=== PATIENT | female | born 1950 | race Caucasian/White ===

== ENCOUNTER → 2017-08-31 14:50 | Outpatient (CLI) | payer MEDICARE, OTHER, SELFPAY ==
[2017-08-23 08:47] VITALS: BP 150/87; BMI 27.8
--- NOTE | 2017-08-31 15:16 | CT_ITS ---
STUDY: LOW DOSE CT LUNG CANCER SCREENING REASON FOR EXAM: Female, 67 years old. 80 pack-year history of tobacco use. RADIATION DOSAGE (If Supplied By Facility): CTDIvol = ( 3.02 ) mGy, DLP = ( 94.40 ) mGycm TECHNIQUE: No contrast was administered. Low dose technique was utilized (average mAS-38 and kVp 120). 1.25 mm axial source images with a slice interval of 1.25-mm were reconstructed in lung windows. 2.5 mm axial source images with a slice interval of 2.5-mm were reconstructed in lung windows. 5.0 mm axial source images with a slice interval of 5.0-mm were reconstructed in soft tissue windows. Nodule measured using lung windows on PACS and/or independent workstation with automated measurement of minimum and maximum diameter. Nodule measurement reported as average diameter rounded to the nearest whole number. Growth is defined as an increase ins size of greater than 1.5 mm. COMPARISON: Comparison is made with prior chest radiograph dated May 15, 2017. NODULES: There is a 2.4 cm x 2.2 cm x 2.4 cm spiculated suspicious nodular density in the posterior medial segment of the right lower lobe as seen on axial image #179. There is also evidence of a 2 cm x 1.3 cm irregular linear density in the posterior medial aspect of the left lower lobe as seen on axial image #171. There is also evidence of focal airspace disease in the posterior medial segment of the left lower lobe with a focal bronchiectasis in the left lower lobe as seen on axial image #166. Correlation with PET scan is recommended. Total lung nodules (excluding granulomas): 3 Emphysema: Mild degree of emphysematous changes. Hyperinflation. Aorta: Atherosclerotic plaque formation. Coronary arteries: Coronary artery calcification. Heart: Prior CABG. Pulmonary artery: Unremarkable. Mediastinal nodes: Small benign-appearing mediastinal lymphadenopathy. Other chest and abdominal findings: Degenerative changes of the thoracic spine. CT/Low Dose CT Lung Screening IMPRESSION: Lung-RADS category 4B - Chest CT with or without contrast, PET/CT and/or tissue sampling can be obtained depending on the probability of malignancy and comorbidities. IMPORTANT NOTES FOR USE: ACR Lung-RADS Version 1.0 Assessment Categories Release Date: November 11, 2013 Category: Coded 0-4 bases on nodule(s) with highest degree of suspicion. Negative screen is defined as categories 1 and 2; a positive screen is defined as categories 3 and 4. Category 3 and 4A nodules that are unchanged on interval CT should be coded as category 2, and individuals returned to screening in 12 months. Category 4X: Category 3 or 4 nodules with additional imaging findings that increase the suspicion of lung cancer, such as spiculation, GGN that doubles in size in 1 year, enlarged lymph notes, etc. Category Modifiers: S (significant finding unrelated to lung cancer) and C (prior history of treated lung cancer) may be added to the 0-4 Lung-RADS Electronically Signed: Miles Servin MD at 10:41 EST Tel [phone], Service support ,
== END ==
PROVIDERS: Family Provider Internal Medicine; PCP Internal Medicine; Visit Provider Internal Medicine Critical Care Medicine
DX: Z12.2 Encounter for screening for malignant neoplasm of respiratory organs (principal); J44.9 Chronic obstructive pulmonary disease, unspecified; Z87.891 Personal history of nicotine dependence
CPT/HCPCS: G0297

== ENCOUNTER → 2017-09-06 09:08 | Outpatient (CLI) | payer MEDICARE, OTHER, SELFPAY ==
[2017-09-06 10:38] LABS: Hematocrit 49.8 % (37-47); Hemoglobin 16.3 g/dl (12.0-15.0); Mean Corp Hgb Conc 32.7 g/gl (32-36); Mean Corpuscular Hgb 31.5 pg (27.0-32.0); Mean Corpuscular Volume 96.3 fL (81-99); Mean Platelet Vol. 12.2 fl (6.2-12.0); Platelet Count 265 K/mm3 (150-450); RBC Distribution Width CV 12.8 % (11.6-14.6); RBC Distribution Width SD 44.7 fl (35.1-43.9); Red Blood Count 5.17 M/mm3 (4.2-5.4); White Blood Count 7.6 K/mm3 (4.4-11.0)
[2017-09-06 10:51] LABS: Scan Indicated on CBC? Y/N NO
[2017-09-06 10:57] LABS: International Normalized Ratio 0.9; Prothrombin Time (Protime)PT. 12.2 SECONDS (11.7-14.9)
[2017-09-06 10:59] LABS: Partial Thromboplast Time 28.8 Seconds (24.1-36.2)
== END ==
PROVIDERS: Family Provider Internal Medicine; PCP Internal Medicine; Visit Provider Nurse Practitioner Acute Care
DX: I25.10 Atherosclerotic heart disease of native coronary artery without angina pectoris (principal); R07.9 Chest pain, unspecified; R91.8 Other nonspecific abnormal finding of lung field
CPT/HCPCS: 36415; 85027; 85610; 85730

== ENCOUNTER → 2017-09-13 08:51 | Outpatient (CLI) | payer MEDICARE, OTHER, SELFPAY ==
--- NOTE | 2017-09-13 | ASPIGT_PTH ---
PATIENT: JARETH SALEH LOC: CT U#:[id number] AGE/SX: 74/F ROOM: RE09/13/[address]: SENTHIL Roberts : 1950 BED: DIS: SPEC #: [id number] RECD: 09/13/17 11:46 STATUS: NEERU [place] #: [id number] KAERNA: 09/13/17 00:[address]: Ana Hunter NP DEPT: SURGICAL PATHOLOGY RECD BY: Zaid Loaiza ENTERED: 09/13/17 11:49 SP TYPE: ASP RAD OTHR DR: Dr. Kaylee Loco MD Tissues: Lung, NOS Procedures: FNA Specimen Adequacy Special Stain Group II Surgery Specimen Level IV Imprint (control) Comments: [facility] EGFR and KRAS - QNS - insufficient material. HEADER OPERATION: CT guided right lung biopsy PRE-OP DIAGNOSIS: Mass, right lung TISSUE SUBMITTED: 20 gauge core x3, right posterior lung mass MICROSCOPIC DIAGNOSIS Right lung mass, CT-guided core biopsy: Non-small cell carcinoma, favor adenocarcinoma. IVY:tomasz 09/14/17 COMMENT The specimen is evaluated at the time of right lung core biopsy by Dr. Ramachandran. Immediate Evaluation = Malignant cells present derived from non-small cell carcinoma. Immunohistochemistry ([id number]) supports the above diagnosis. Molecular studies on the tumor will be performed and the results will be reported later, separately. MICROSCOPIC DESCRIPTION Slides are reviewed. GROSS DESCRIPTION Received is one container labeled with the patient's name and designated right lung, CT-guided core biopsy. The specimen consists of multiple irregular fragments of calvillo soft tissue that in aggregate measure 1 x <0.1 x 0.1 cm. The specimen is totally submitted in one cassette. Two touch imprints are also prepared at the time of core biopsy. / IVY:tomasz 09/13/17 TC:0 CPT: 62838, 73030
--- NOTE | 2017-09-13 | IMM_PTH ---
PATIENT: JARETH SALEH LOC: CT U#:[id number] AGE/SX: 74/F ROOM: RE09/13/[address]: SENTHIL Roberts : 1950 BED: DIS: SPEC #: [id number] RECD: 09/14/17 11:11 STATUS: NEERU [place] #: [id number] KARENA: 09/13/17 00:[address]: Ana Hunter NP DEPT: IMMUNOHISTOCHEMISTRY RECD BY: Cheryl Chang ENTERED: 09/14/17 11:13 SP TYPE: IMMUNO OTHR DR: Dr. Kaylee Loco MD Tissues: Lung, NOS Procedures: CK20 (add) CK5-6 (add) CK8 (add) TTF1 (add) P40 (add) CK7 (initial) PHYSICIAN & INSTITUTION [place] [id number] SPECIMEN INFORMATION: Tissue Source: CT-guided right lung biopsy Clinical Info: Mass, right lung Specimen Number: [id number] CPT code: 94932, 66736 x5 METHODOLOGY: Deparaffinized sections of prefer/formalin-fixed tissue or PAP/DQ stained slides are incubated with monoclonal/polyclonal antibodies/oligonucleotide probes. Localization is made via biotin free immunoperoxidase method. Appropriate controls are performed and reacted as expected. Results on target cell population are indicated in the following table: RESULTS: ANTIBODY / CLONE RESULT CK7 (OV-TL12/30) positive CK8 (77thnoK26) positive CK20 (KS20.8) negative TTF-1 (8G7G3/1) positive CK5-6 (D5 & 1684) negative P40 (BC28) negative These tests were developed and their performance characteristics determined by [facility]. They may not have been cleared or approved by the U.S. Food and Drug Administration. The FDA has determined that such clearance or approval is not necessary. INTERPRETATION: Right lung, CT-guided biopsy: Non-small cell carcinoma, favor adenocarcinoma. SJ:tomasz 09/15/17
[2017-09-13 09:11] VITALS: BP 137/70; PULSE 75; RESP 14; TEMP 36.7; O2SAT 96; BMI 28.7
--- NOTE | 2017-09-13 10:00 | CT_ITS ---
PROCEDURE: CT GUIDED CORE NEEDLE BIOPSY OF A right lower lobe LUNG LESION INDICATION: Female, 67 years old. Right lower lobe nodule. PHYSICIAN: Dr. Servin CONSENT: Written informed consent was obtained having explained the risks, benefits and alternatives in detail with the patient who accepted the risks and agreed to proceed. Laboratory review and clinical assessment was performed. CONSCIOUS SEDATION PROTOCOL: The Drugs used were: 2 mg Versed, IV., and 50 mcg Fentanyl, IV. The sedation time was: 15 minutes. The contrast sedation protocol was started at 10:00 AM and terminated at 10:15 AM. The conscious sedation protocol was independently monitored by our department nurse. RADIATION DOSAGE (If Supplied By Facility): CTDIvol = ( 16.6 ) mGy, DLP = ( 24.34 ) mGycm Individualized dose optimization techniques were used for this CT. TECHNIQUE: The patient was placed in the prone position. A noncontrast CT was performed to localize the lesion in the . The skin surface was prepped and draped in a sterile fashion. 1% lidocaine was used for local anesthesia. Using CT guidance, a 20-gauge coaxial biopsy device was advanced to the periphery of the lesion. A total of 3 core specimens were obtained. The specimens were placed in a formalin solution. A post procedure CT demonstrated no adverse sequelae or pneumothorax. The patient tolerated the procedure well without adverse event. A negative biopsy does not exclude malignancy. Further imaging or clinical followup based on patient condition and degree of clinical suspicion for malignancy. Suggest rebiopsy, if biopsy results do not match with clinical scenario. CT/Biopsy/Inj or Needle Placement IMPRESSION: 1. CT directed core needle biopsy of the right lower lobe nodule using CT image guidance with image documentation as described. Pathology results are pending. 2. Conscious Sedation protocol utilized with independent monitoring. Electronically Signed: Miles Sevrin MD at 11:24 EST Tel [phone], Service support ,
--- NOTE | 2017-09-13 10:12 | RAD_ITS ---
STUDY: X-RAY CHEST REASON FOR EXAM: Female, 67 years old. Immediate post right lung biopsy radiograph. TECHNIQUE: Single frontal inspiratory and expiratory views of the chest. COMPARISON: Comparison is made with prior study dated May 15, 2017. FINDINGS: There is no evidence of pneumothorax on the immediate post right lung biopsy radiograph. RAD/Chest Insp/Exp 2 View IMPRESSION: No pneumothorax seen on the immediate post right lung biopsy radiograph. Electronically Signed: Miles Servin MD at 8:22 EST Tel [phone], Service support ,
--- NOTE | 2017-09-13 12:15 | RAD_ITS ---
STUDY: X-RAY CHEST REASON FOR EXAM: Female, 67 years old. Post lung biopsy evaluation. TECHNIQUE: 1 view COMPARISON: Prior chest radiograph of September 13, 2017 at 10:[address] exam of September 13, 2017. Prior chest radiograph from May 15, 2018 FINDINGS: Negative for a pneumothorax. Stable density at the medial right lung base. Stable linear opacities of the left lung. Normal size heart. Status post prior midline sternotomy. Normal visualized pulmonary arteries. Normal visualized aortic arch and descending thoracic aorta. Normal visualized thoracic spine. Normal visualized ribs, clavicles, and shoulders. There is no demonstrated abnormality of the visualized soft tissue structures of the upper abdomen. RAD/Chest Insp/Exp 2 View IMPRESSION: Post lung biopsy with no visible pneumothorax, major consolidation or focal atelectasis. Stable lung opacities as described above. Electronically Signed: Tina Bay MD at 17:54 EST , Service support ,
[2017-09-13 12:30] VITALS: BP 155/72; PULSE 67; RESP 14; TEMP 36.7; O2SAT 97
--- NOTE | 2017-09-13 13:15 | NURSING ---
1240 D/C AMBULATED OUT WITH .
== END ==
PROVIDERS: Family Provider Internal Medicine; PCP Internal Medicine; Visit Provider Nurse Practitioner Acute Care
DX: C34.31 Malignant neoplasm of lower lobe, right bronchus or lung (principal); F17.200 Nicotine dependence, unspecified, uncomplicated; J44.9 Chronic obstructive pulmonary disease, unspecified; I25.10 Atherosclerotic heart disease of native coronary artery without angina pectoris; I25.2 Old myocardial infarction; I10 Essential (primary) hypertension; E66.9 Obesity, unspecified; Z68.28 Body mass index [BMI] 28.0-28.9, adult; E11.9 Type 2 diabetes mellitus without complications; Z79.84 Long term (current) use of oral hypoglycemic drugs; Z79.899 Other long term (current) drug therapy; E78.5 Hyperlipidemia, unspecified; Z95.1 Presence of aortocoronary bypass graft
CPT/HCPCS: 32405; 71046; 77012; 88172; 88305; 88313; 88341; 88342; 99156; J7040; A4216

== ENCOUNTER → 2017-09-23 08:27 | Outpatient (CLI) | payer MEDICARE, OTHER, SELFPAY ==
--- NOTE | 2017-09-23 08:52 | MRI_ITS ---
STUDY: MRI BRAIN WITH AND WITHOUT CONTRAST REASON FOR EXAM: Female, 67 years old. Staging of lung cancer TECHNIQUE: Standardized multiplanar fat and water weighted pulse sequences were obtained. 7 ml of Gadavist contrast material was administered intravenously for the contrast portion of the examination. COMPARISON: None. FINDINGS: No evidence for shift of midline structures, mass effect or compression of ventricles noted. No acute intra or extra-axial hemorrhage is seen. No abnormal intracranial fluid collections identified. The basal cisterns are patent. Ventricular system appears unremarkable. A few scattered foci of T2/FLAIR hyperintensity in the periventricular and subcortical white matter noted which are nonspecific in imaging appearance however likely relate with mild chronic small vessel disease. Skull base vascular flow voids are patent. Normal marrow signal intensity of the calvarium. Visualized orbital contents are within normal limits. No evidence for intracranial enhancing mass seen. The paranasal sinuses are essentially clear. Mastoid air cells appear clear MRI/Brain W/WO Contrast IMPRESSION: No evidence for intracranial enhancing mass. No evidence for intracranial metastases. No evidence for acute or subacute ischemic insult. No evidence for acute intracranial hemorrhage. Mild chronic small vessel disease Electronically Signed: Ben Petty, at 12:04 EST Tel , Service support ,
[2017-09-23 10:01] LABS: CREATININE FINGERSTICK < 0.6 mg/dL (0.55-1.02); EGFR FINGERSTICK > 60.0000 mL/min (>60)
== END ==
PROVIDERS: Family Provider Internal Medicine; PCP Internal Medicine; Visit Provider Nurse Practitioner Acute Care
DX: C34.90 Malignant neoplasm of unspecified part of unspecified bronchus or lung (principal)
CPT/HCPCS: 70553; A9585

== ENCOUNTER → 2017-09-25 08:24 | Outpatient (CLI) | payer MEDICARE, OTHER, SELFPAY ==
--- NOTE | 2017-09-25 08:00 | PET_ITS ---
EXAMINATION: FDG PET CT INDICATIONS: A 67-year-old female with history of carcinoma of the lung presenting for initial staging examination. COMPARISON EXAMINATION: CT of the chest report dated 08/31/17. INDEX LESION SIZE SUV INTERPRETATION Right lower posterior hemithorax pulmonary parenchyma, right lower lobe 27.9 mm (frame 164) 3.6 Fulfills quantitative criteria for viable neoplasm Left lower posteromedial hemithorax, left lower lobe 19.0 mm (frame 159) 1.2 Quantitative criteria for viable neoplasm are not fulfilled TECHNIQUE: Following the intravenous administration of 14.02 mCi of F-18 deoxyglucose via the right wrist, multiplanar image acquisitions of the neck, chest, abdomen and pelvis to level of mid thigh, obtained at one hour post radiopharmaceutical administration contemporaneously interpreted with the current CT of the neck, chest, abdomen and pelvis to level of mid thigh, dated 09/15/[address] of the chest report dated 08/31/17 reveal: SERUM GLUCOSE LEVEL: 180 mg/dl. HEIGHT: 61 inches. WEIGHT: 152 lbs. FINDINGS: 1. Focal increased glucose metabolism is defined in the right lower posterior hemithorax pulmonary parenchyma, right lower lobe generating a calculated maximum standard uptake value of 3.6. The maximal axial diameter of the corresponding parenchymal density on review of CT of the thorax dated 09/25/17 is 27.9 mm (transverse). 2. Normal physiologic distribution of the radiopharmaceutical is apparent in the hepatic (2.9) and splenic parenchyma, both renal units, bladder and visualized intestinal tract. There is uniform distribution of the radiopharmaceutical concentration compared on the cerebellar hemispheres and cerebral cortex. Diffuse intestinal tract activity is noted throughout all four quadrants of the abdominal-pelvic retroperitoneum, mesentery consistent with normal physiologic distribution of the radiopharmaceutical. Pertinent CT findings are as follows. CHEST: Emphysematous change is noted in the bilateral upper lung zones. A cavitated parenchymal density noted in the left lower posteromedial lung field demonstrates minimal enhanced glucose metabolism generating a calculated maximum standard uptake value of 1.2. Quantitative criteria for viable pulmonary parenchymal neoplasm are not fulfilled. The maximal axial diameter of the corresponding parenchymal density on review of CT of the thorax dated 09/25/17 is 19.0 mm (transverse). There is evidence of prior median sternotomy. Coronary arterial calcification is observed. Atherosclerotic calcification is defined in the thoracic aorta without evidence of dilatation, aneurysm formation. Bilateral subcentimeter axillary soft tissue densities are ametabolic. ABDOMEN AND PELVIS: There is fatty metamorphosis involving the hepatic parenchyma. The gallbladder is not clearly identified. Atherosclerotic calcification is defined in the abdominal aorta without evidence of dilatation, aneurysm formation. Pelvic arterial calcification is observed. Bilateral inguinal soft tissue densities are non-glucose avid. The uterus appears surgically absent. Colonic diverticulosis is defined. SKELETAL: Degenerative changes defined in the cervical, thoracic and lumbar spine demonstrate no evidence for glucose hypermetabolism. PET/PET/CT Tumor Base -Thigh Init IMPRESSION: 1. ABNORMAL EXAMINATION INDICATIVE OF MALIGNANT VIABLE NEOPLASM. 2. Increased glucose concentration defined in the right lower posterior hemithorax pulmonary parenchyma, right lower lobe fulfills quantitative criteria for viable neoplasm. (Michelle et al, Annals of Internal Medicine, 138:724, 2003). 3. Mild increased glucose concentration observed in the left lower posteromedial lung zone, left lower lobe does not fulfill quantitative criteria for viable neoplasm. 4. No other quantitatively significant hypermetabolic abnormalities are noted. There is no definitive scintigraphic evidence of distant metastatic disease. Electronic Signature Adi Kaplan D.O. Electronically Signed: Adi Kaplan DO at 23:13 EDT Tel , Service support ,
== END ==
PROVIDERS: Family Provider Internal Medicine; PCP Internal Medicine; Visit Provider Nurse Practitioner Acute Care
DX: C34.31 Malignant neoplasm of lower lobe, right bronchus or lung (principal)
CPT/HCPCS: 78815; A9552; A4216

== ENCOUNTER 2018-03-11 08:25 | Emergency (ER) | payer MEDICARE, OTHER, SELFPAY ==
[2017-10-05 11:04] VITALS: BMI 28.2
[2018-03-11 08:26] VITALS: BP 165/81; PULSE 92; RESP 20; TEMP 35.8; O2SAT 98; BMI 28.1
[2018-03-11] MEDS: Acetaminophen 500 MG Tablet 1000 MG PO (08:46)
--- NOTE | 2018-03-11 08:55 | ED.DCSUM_ITS ---
- ER Visit Summary Date of Service: 03/11/18 Chief Complaint: Back pain History of Present Illness: The patient is a 67 F with mid to lower back pain over the past 4 days. Patient states that she was mey the day before the onset of pain but does not remember specific injury. Past history significant for cancer in both right lower and left lower lobes. She was treated with a single dose of radiation at [facility] this past November. Follow-up CT scan in December showed partial response. She is scheduled to go back for repeat imaging in 3 months. Past history is also significant for coronary disease, SC, COPD, diabetes, hypertension, high cholesterol. Physical Examination: Blood pressure is 165/81, temperature 96.4, heart rate 92 , respiratory rate 20, pulse ox 98% on room air. Patient is standing at bedside. She appears uncomfortable but is in no acute distress. Head neck examination is unremarkable. Heart is regular rate and rhythm. Lung sounds are clear. Abdomen is soft nontender. Back examination reveals an area of ecchymosis in the midline near the junction of the thoracic and lumbar spine. That area is tender to palpation. There is no crepitus. Patient does state that she had a rash to that area following her radiation treatment in November. Neuro exam reveals no deficits. Test Results: CT flank shows no acute abnormality. There are no masses or lymphadenopathy appreciated. CT the chest: Where prior right lower lobe mass was present there is now consolidation within the right lower lobe. There is a stable focal masslike consolidation in the left lower lobe with small air bronchogram or cavitation. This may represent worsening neoplasm versus superimposed infection. Emergency Department Course and Treatment: Patient requested only Tylenol here as she was driving. Test results were discussed with her in detail. Patient has had no URI, cough, fever symptoms. She states that the left lower lobe mass was biopsied and was cancerous. I think patient likely has musculoskeletal back pain at the area where her prior treatment was. She will be treated with Tylenol, oxycodone, and Valium for muscle spasm. Patient was advised to contact her oncologist at [facility] on Monday for close follow -up. She voices understanding and agreement. Treatment Plan: [] Disposition: Discharge Impression: 1. Back pain, musculoskeletal 2. Lung cancer This note was generated with Access Scientification software. It may contain incorrect words, spelling, and punctuation that were not noted in review of the chart prior to signing ED Disposition - Plan for ED Patient: Chief Complaint: Back Referrals: Kaylee Loco MD [Primary Care Provider] -
--- NOTE | 2018-03-11 10:35 | ED.DEP ---
ED Disposition - Plan for ED Patient: Disposition: Home or Assisted Living Chief Complaint: Back Instructions: ED Neck Back Pain General Prescriptions: Oxycodone [Oxyir] 5 mg PO Q6H PRN PRN 4 Days #14 tablet PRN Reason: Pain Diazepam [Valium] 5 mg PO Q8 PRN #10 tablet PRN Reason: Muscle Spasm Referrals: Kaylee Loco MD [Primary Care Provider] - Additional Instructions: Follow-up with your oncologist on Monday as discussed.
[2018-03-11 10:41] VITALS: PULSE 87; RESP 16; O2SAT 94
== END 2018-03-11 10:42 | disposition home or self-care (01) ==
PROVIDERS: Emergency Provider Emergency Medicine; Family Provider Internal Medicine; PCP Internal Medicine
DX: M54.5 Low back pain (principal); M54.6 Pain in thoracic spine; C34.32 Malignant neoplasm of lower lobe, left bronchus or lung; C34.31 Malignant neoplasm of lower lobe, right bronchus or lung; I25.10 Atherosclerotic heart disease of native coronary artery without angina pectoris; I25.2 Old myocardial infarction; I10 Essential (primary) hypertension; J44.9 Chronic obstructive pulmonary disease, unspecified; E11.9 Type 2 diabetes mellitus without complications; E78.00 Pure hypercholesterolemia, unspecified; Z79.84 Long term (current) use of oral hypoglycemic drugs; Z79.899 Other long term (current) drug therapy; Z72.0 Tobacco use
CPT/HCPCS: 71250; 74176; 99283

== ENCOUNTER → 2020-04-23 09:10 | Outpatient (CLI) | payer MEDICARE, OTHER, SELFPAY ==
[2017-10-05 11:04] VITALS: BMI 28.2
[2020-02-05 09:30] VITALS: BMI 27.1
== END ==
LOC: MTDU 11-03 00:19
PROVIDERS: PCP Internal Medicine; Referring Provider Physician Assistant; Visit Provider Physician Assistant
DX: Z20.828 Contact with and (suspected) exposure to other viral communicable diseases (principal)
CPT/HCPCS: 87635; C9803; U0003

== ENCOUNTER → 2021-04-29 15:27 | Outpatient (CLI) | payer MEDICARE, OTHER, SELFPAY ==
[2017-10-05 11:04] VITALS: BMI 28.2
[2021-04-29 17:07] LABS: Anion Gap 4 (5-15); BUN 16 mg/dL (7-18); BUN/Creat Ratio 13.7 RATIO (10-20); Chloride 107 mmol/L (98-107); Creatinine, Serum 1.17 mg/dL (0.55-1.02); EST Glomerular Filtration Rate 49 mL/min (>60); Est Glom Filt Rate - Afr Amer 59 mL/min (>60); Glucose 122 mg/dL (74-106); Potassium 4.3 mmol/L (3.5-5.1); Sodium Level 137 mmol/L (136-145)
== END ==
PROVIDERS: PCP Internal Medicine; Visit Provider Nurse Practitioner Gerontology
DX: I10 Essential (primary) hypertension (principal)
CPT/HCPCS: 36415; 80048

== ENCOUNTER 2021-07-21 08:06 | Outpatient (CLI) | payer MEDICARE, OTHER, SELFPAY ==
[2017-10-05 11:04] VITALS: BMI 28.2
--- NOTE | 2021-07-21 08:08 | ECHOCS_ITS ---
Reason For Study: s/p TN, EF 25% Procedure This was a 2D Doppler, Color Flow transthoracic echocardiogram. Contrast injection was performed. Exam performed in department. Left Ventricle Mildly dilated left ventricle. Moderate segmental systolic dysfunction (see wall motion). The estimated ejection fraction is 30 %. Diastolic function is indeterminate. Infero-Basal: Akinetic. Basal inferoseptal: Dyskinetic. Mid-Lateral : Hypokinetic. Mid-Posterior: Hypokinetic. Mid-Inferior: Hypokinetic. Mid-inferoseptal : Hypokinetic. Goodwin : Hypokinetic. Right Ventricle Normal RV size. Normal systolic function. Atria Normal left atrium. Normal right atrium. No doppler evidence for ASD. Mitral Valve There is mild mitral annular calcification. Extension of the mitral annular calcification on the base of the posterior mitral valve leaflet. Mild (1+) mitral valve insufficiency. Tricuspid Valve Normal tricuspid valve. Mild tricuspid valve insufficiency. Right ventricular systolic pressure estimated to be 31 mmHg. Aortic Valve Trisinus/trileaflet aortic valve. Normal aortic valve. Trivial aortic valve insufficiency. Pulmonic Valve The pulmonic valve is not well visualized. Great Vessels Normal sized aortic root. Pericardium/Pleural No pericardial effusion. Medication Diluted definity 2ml given slow IV push to enhance endocardial definition. MMode/2D Measurements & Calculations LVIDd: 5.4 cm IVSd: 0.75 cm Ao root diam: 3.1 cm LVIDs: 4.9 cm LVPWd: 0.93 cm RVDd: 2.1 cm FS: 9.9 % LAV(MOD-bp): 19.8 ml LVAd ap4: 29.2 cm2 LVAd ap2: 32.4 cm2 LAV(MOD-bp) Indexed: 13.1 ml/m2 LVLd ap4: 6.8 cm LVLd ap2: 7.3 cm LAV(MOD-sp2): 23.6 ml EDV(MOD-sp4): 103.4 ml EDV(MOD-sp2): 120.9 ml LAV(MOD-sp4): 15.1 ml EDV(sp4-el): 107.4 ml EDV(sp2-el): 121.8 ml LVAs ap4: 22.3 cm2 LVAs ap2: 24.3 cm2 LVLs ap4: 5.9 cm LVLs ap2: 6.3 cm ESV(MOD-sp4): 72.0 ml ESV(MOD-sp2): 81.5 ml ESV(sp4-el): 71.6 ml ESV(sp2-el): 79.2 ml EF(MOD-sp4): 30.3 % EF(MOD-sp2): 32.6 % EF(sp4-el): 33.4 % SV(MOD-sp4): 31.4 ml SV(MOD-sp2): 39.4 ml SV(sp4-el): 35.8 ml LA A4 area: 8.9 cm2 LA dimension(2D): 3.6 cm RA A4 area: 8.0 cm2 Doppler Measurements & Calculations MV E max humberto: 45.8 cm/sec Lat Peak E' Humberto: 5.5 cm/sec Med Peak E' Humberto: 3.2 cm/sec MV A max humberto: 93.3 cm/sec E/E' lat: 8.4 E/E' med: 14.5 MV E/A: 0.49 Ao V2 max: 132.1 cm/sec LV V1 max: 104.1 cm/sec PA V2 max: 85.4 cm/sec Ao max P.0 mmHg LV V1 max P.3 mmHg Ao V2 mean: 93.1 cm/sec Ao mean P.8 mmHg Ao V2 VTI: 25.2 cm TR max humberto: 265.3 cm/sec TR max P.2 mmHg ECHO/Echo Complete W/ Contrast Interpretation Summary Contrast injection was performed. Moderate segmental systolic dysfunction (see wall motion). The estimated ejection fraction is 30 %. There is mild mitral annular calcification. Extension of the mitral annular calcification on the base of the posterior mitr al valve leaflet. Mild (1+) mitral valve insufficiency. Mild tricuspid valve insufficiency. Trivial aortic valve insufficiency. Right ventricular systolic pressure estimated to be 31 mmHg. Diastolic function is indeterminate. Ordering Physician: Krystyna Chavez Referring Physician: Kaylee Loco Performed By: Joanna Pickard RDCS, RVT
== END 2021-07-21 23:59 | disposition short-term general hospital (02) ==
LOC: CVS 08:07
PROVIDERS: PCP Internal Medicine; Referring Provider Nurse Practitioner Gerontology; Visit Provider Nurse Practitioner Gerontology
DX: R06.02 Shortness of breath (principal)
CPT/HCPCS: 93306; Q9957; A4216; C8929

== ENCOUNTER 2021-08-26 10:06 | Outpatient (CLI) | payer MEDICARE, OTHER, SELFPAY ==
[2017-10-05 11:04] VITALS: BMI 28.2
[2021-08-26 10:52] LABS: Anion Gap 5 (5-15); BUN 25 mg/dL (7-18); BUN/Creat Ratio 25.4 RATIO (10-20); Calcium,Total 9.5 mg/dL (8.5-10.1); Chloride 107 mmol/L (98-107); Creatinine, Serum 0.99 mg/dL (0.55-1.02); EST Glomerular Filtration Rate 59 mL/min (>60); Est Glom Filt Rate - Afr Amer 72 mL/min (>60); Glucose 124 mg/dL (74-106); Potassium 4.8 mmol/L (3.5-5.1); Sodium Level 136 mmol/L (136-145)
== END 2021-08-26 23:59 | disposition home or self-care (01) ==
LOC: LAB 10:09
PROVIDERS: PCP Internal Medicine; Referring Provider Internal Medicine Cardiovascular Disease; Visit Provider Internal Medicine Cardiovascular Disease
DX: I50.20 Unspecified systolic (congestive) heart failure (principal); E11.9 Type 2 diabetes mellitus without complications
CPT/HCPCS: 36415; 80048

== ENCOUNTER 2021-10-21 07:42 | Outpatient (CLI) | payer MEDICARE, OTHER, SELFPAY ==
[2017-10-05 11:04] VITALS: BMI 28.2
--- NOTE | 2021-10-21 07:45 | ECHOL_ITS ---
Reason For Study: REASSESS EF Procedure This was a limited 2D transthoracic echocardiogram. Limited views were obtained. Exam performed in department. Left Ventricle Normal LV size. Moderate segmental systolic dysfunction (see wall motion). The estimated ejection fraction is 35 %. Unable to assess diastolic dysfunction. Infero-Basal: Akinetic. Basal inferoseptal: Dyskinetic. Mid-Posterior: Hypokinetic. Mid-Inferior: Hypokinetic. Mid-inferoseptal : Hypokinetic. Mid-anteroseptal : Hypokinetic. [place] : Hypokinetic. Right Ventricle Normal RV size. Normal systolic function. Atria Normal left atrium. Normal right atrium. Mitral Valve There is mild mitral annular calcification. Extension of the mitral annular calcification on the base of the posterior mitral valve leaflet. Tricuspid Valve Normal tricuspid valve. Aortic Valve Trisinus/trileaflet aortic valve. Normal aortic valve. Pulmonic Valve The pulmonic valve is not well visualized. Great Vessels Normal sized aortic root. Pericardium/Pleural No pericardial effusion. MMode/2D Measurements & Calculations LVIDd: 5.3 cm IVSd: 0.70 cm Ao root diam: 3.0 cm LVIDs: 3.9 cm LVPWd: 0.87 cm FS: 25.4 % LVAd ap4: 23.4 cm2 LVAd ap2: 21.3 cm2 SV(MOD-sp4): 28.8 ml LVLd ap4: 6.4 cm LVLd ap2: 6.4 cm EDV(MOD-sp4): 73.0 ml EDV(MOD-sp2): 63.3 ml EDV(sp4-el): 72.7 ml EDV(sp2-el): 60.1 ml LVAs ap4: 16.5 cm2 LVAs ap2: 16.6 cm2 LVLs ap4: 5.4 cm LVLs ap2: 5.9 cm ESV(MOD-sp4): 44.2 ml ESV(MOD-sp2): 42.0 ml ESV(sp4-el): 42.4 ml ESV(sp2-el): 39.5 ml EF(MOD-sp4): 39.4 % EF(MOD-sp2): 33.6 % EF(sp4-el): 41.6 % SV(MOD-sp2): 21.3 ml SV(sp4-el): 30.3 ml LA dimension(2D): 2.9 cm ECHO/Echo, Limited Study Interpretation Summary Limited views were obtained. Moderate segmental systolic dysfunction (see wall motion). The estimated ejection fraction is 35 %. There is mild mitral annular calcification. Extension of the mitral annular calcification on the base of the posterior mitr al valve leaflet. Unable to assess diastolic dysfunction. Ordering Physician: Krystyna Chavez Referring Physician: Kaylee Loco M.D. Performed By: Noni Spears RCS
== END 2021-10-21 23:59 | disposition home or self-care (01) ==
LOC: CVS 07:44
PROVIDERS: PCP Internal Medicine; Referring Provider Nurse Practitioner Gerontology; Visit Provider Nurse Practitioner Gerontology
DX: I50.20 Unspecified systolic (congestive) heart failure (principal); J44.9 Chronic obstructive pulmonary disease, unspecified; I11.0 Hypertensive heart disease with heart failure; E11.9 Type 2 diabetes mellitus without complications; Z95.1 Presence of aortocoronary bypass graft; Z87.891 Personal history of nicotine dependence
CPT/HCPCS: 93308

== ENCOUNTER → 2022-02-02 | Outpatient (CLI) | payer MEDICARE, OTHER, SELFPAY ==
[2017-10-05 11:04] VITALS: BMI 28.2
--- NOTE | 2022-02-02 13:41 | ECHOLC_ITS ---
Reason For Study: Reassess LV Function Procedure This was a limited 2D transthoracic echocardiogram. The study was technically difficult. Contrast injection was performed. Limited views were obtained. Exam performed in department. Left Ventricle Normal LV size. Mild segmental systolic dysfunction (see wall motion). The estimated ejection fraction is 45 %. The global longitudinal strain = -15% (abnormal). Unable to assess diastolic dysfunction. Infero-Basal: Akinetic. Basal inferoseptal: Dyskinetic. Mid-Inferior: Hypokinetic. Inferior [place] : Hypokinetic. Right Ventricle Normal RV size. Normal systolic function. Atria Normal left atrium. Normal right atrium. No doppler evidence for ASD. Mitral Valve There is mild to moderate mitral annular calcification. Extension of the mitral annular calcification on the base of the posterior mitral valve leaflet. Tricuspid Valve Normal tricuspid valve. Trivial tricuspid valve insufficiency. Right ventricular systolic pressure estimated to be 31 mmHg. Aortic Valve The aortic valve is not well visualized. Pulmonic Valve The pulmonic valve is not well visualized. Great Vessels The aortic root is not well visualized. Pericardium/Pleural No pericardial effusion. Medication Diluted definity 2.5ml given slow IV push to enhance endocardial definition. MMode/2D Measurements & Calculations LVIDd: 4.2 cm IVSd: 0.91 cm LVIDs: 3.4 cm LVPWd: 0.99 cm LVAd ap4: 23.8 cm2 FS: 18.9 % LVLd ap4: 6.5 cm EDV(MOD-sp4): 72.4 ml EDV(sp4-el): 74.2 ml LVAs ap4: 16.6 cm2 LVLs ap4: 5.6 cm ESV(MOD-sp4): 41.9 ml ESV(sp4-el): 41.7 ml EF(MOD-sp4): 42.1 % EF(sp4-el): 43.8 % LVAd ap2: 24.9 cm2 SV(MOD-sp4): 30.5 ml SV(MOD-sp2): 36.2 ml LVLd ap2: 6.3 cm EDV(MOD-sp2): 85.1 ml EDV(sp2-el): 83.7 ml LVAs ap2: 17.4 cm2 LVLs ap2: 5.4 cm ESV(MOD-sp2): 48.9 ml ESV(sp2-el): 47.3 ml EF(MOD-sp2): 42.6 % SV(sp4-el): 32.5 ml Doppler Measurements & Calculations TR max candace: 263.5 cm/sec TR max P.8 mmHg ECHO/Echo Limited w/Contrast Interpretation Summary The study was technically difficult. Contrast injection was performed. Limited views were obtained. Mild segmental systolic dysfunction (see wall motion). The estimated ejection fraction is 45 %. The global longitudinal strain = -15% (abnormal). There is mild to moderate mitral annular calcification. Extension of the mitral annular calcification on the base of the posterior mitr al valve leaflet. Trivial tricuspid valve insufficiency. Right ventricular systolic pressure estimated to be 31 mmHg. Unable to assess diastolic dysfunction. Ordering Physician: Kimberley Galindo Referring Physician: Kaylee Loco Performed By: Joanna Pickard, ADRIANCS, RVT
== END | disposition home or self-care (01) ==
LOC: CVS 13:40
PROVIDERS: PCP Internal Medicine; Referring Provider Physician Assistant Medical; Visit Provider Physician Assistant Medical
DX: R06.02 Shortness of breath (principal)
CPT/HCPCS: 93308; Q9957; A4216; C8924

== ENCOUNTER 2022-02-09 08:29 | Outpatient (RCR) | payer MEDICARE, OTHER, SELFPAY ==
[2017-10-05 11:04] VITALS: BMI 28.2
[2022-02-09 09:53] VITALS: BP 132/71; PULSE 77; TEMP 35.7
--- NOTE | 2022-02-09 11:04 | HP.PCM_ITS ---
History of Present Illness Date of Service: 02/09/22 Chief Complaint: Follow-up on open wound right adjacent to spine mid back. History of Wound: 71-year-old white female that has many comorbidities and problems she has liver cancer and lung cancer surgery she is diabetic controlled with diet she has history severe COPD congestive heart failure and many other problems. Patient had a biopsy of a lump on her back removed in around June of this last year by Dr. Werner and it never healed. [facility] Medical History (Reviewed 02/09/22 @ 11:07 by Miriam Kim ADMINISTRATIVE RECEPTIONIST, ADMINISTRATIVE RECEPTIONIST-C) Atherosclerosis of coronary artery bypass graft without angina pectoris Chest pain, unspecified COPD (chronic obstructive pulmonary disease) Diabetes mellitus Essential hypertension History of left heart catheterization (LHC) (~04/21/21) Hyperlipemia Kidney stone Liver cancer Long-term use of high-risk medication Lung cancer Lung mass Old myocardial infarction Primary cancer of right lower lobe of lung SOB (shortness of breath) Stage 3 severe COPD by GOLD classification Tobacco abuse Ventricular fibrillation Home Medications omeprazole 40 mg capsule,delayed release 40 mg PO DAILY 08/10/15 [History Last Taken Unknown] rosuvastatin 40 mg tablet 40 mg PO DAILY 08/10/15 [History Last Taken Unknown] budesonide-formoterol HFA 160 mcg-4.5 mcg/actuation aerosol inhaler (Symbicort) 2 inh inhalation Q12H 06/26/17 [History Last Taken Unknown] metformin 500 mg tablet 500 mg PO BID 01/25/19 [History Last Taken Unknown] acetaminophen 500 mg tablet (Tylenol Extra Strength) 500 mg PO Q8H PRN 10/14/20 [History Last Taken Unknown] albuterol sulfate 90 mcg/actuation aerosol inhaler (ProAir HFA) 2 puff inhalation Q6H PRN 10/14/20 [History Last Taken Unknown] cholecalciferol (vitamin D3) 125 mcg (5,000 unit) capsule 5,000 unit PO DAILY 0 10/14/20 [History Last Taken Unknown] folic acid 1 mg tablet 1 mg PO DAILY 10/14/20 [History Last Taken Unknown] apixaban 5 mg tablet 5 mg PO BID 04/14/21 [History Last Taken Unknown] fluticasone propionate 50 mcg/actuation nasal spray,suspension (Allergy Relief (fluticasone)) 2 spray intranasal DAILY PRN 04/29/21 [History Last Taken Unknown] gabapentin 300 mg capsule 300 mg PO QHS PRN Pain, Mild 04/29/21 [History Last Taken Unknown] nitroglycerin 0.4 mg sublingual tablet 0.4 mg sublingual Q5-15M PRN chest pain #25 tabs 04/29/21 [Rx Last Taken Unknown] clopidogrel 75 mg tablet (Plavix) 75 mg PO DAILY #90 tabs 07/12/21 [Rx Last Taken Unknown] metoprolol succinate 25 mg tablet,extended release 24 hr 25 mg PO DAILY #90 tabs 10/08/21 [Rx Last Taken Unknown] magnesium oxide 400 mg (241.3 mg magnesium) tablet 400 mg PO DAILY 10/26/21 [History Last Taken Unknown] potassium chloride 20 mEq tablet,extended release 20 meq PO DAILY 10/26/21 [History Last Taken Unknown] spironolactone 25 mg tablet 25 mg PO Q OTHER DAY #45 tabs 10/26/21 [Rx Last Taken Unknown] sacubitril 49 mg-valsartan 51 mg tablet (Entresto) 1 tab PO BID #180 tabs 11/22/21 [Rx Last Taken Unknown] Allergy/AdvReac Type Severity Reaction Status Date / Time adhesive tape Allergy Severe welts, Verified 10/26/21 14:02 rash bee venom protein (honey bee) Allergy Anaphylaxis Verified 10/26/21 14:02 codeine Allergy Itching Verified 10/26/21 14:02 Family History Brother Myocardial infarction Diabetes CAD (coronary artery disease) Hx of CABG Sister Diabetes CAD (coronary artery disease) Brother CAD (coronary artery disease) Hx of CABG Diabetes Brother CAD (coronary artery disease) Hx of CABG Surgical History femoral artery repair History of cholecystectomy History of hysterectomy Presence of aortocoronary bypass graft (~10/2003) Social History Smoking Status: Current every day smoker Electronic Cigarette Use: not used second hand exposure: Yes alcohol intake: current alcohol intake frequency: a few times a week Alcohol type: wine details: occasional substance use type: does not use caffeine: Yes Type: carbonated beverages Number of servings: 3 ROS Constitutional Constitutional: Reports systems reviewed and no addt'l complaints, except as documented Eyes Eyes: Reports systems reviewed and no addt'l complaints, except as documented ENT HEENT: Reports systems reviewed and no addt'l complaints, except as documented Cardiovascular Cardiovascular: Reports systems reviewed and no addt'l complaints, except as doc umented Respiratory/Chest Respiratory/Chest: Reports systems reviewed and no addt'l complaints, except as documented Gastrointestinal Gastrointestinal: Reports systems reviewed and no addt'l complaints, except as documented Genitourinary Genitourinary: Reports systems reviewed and no addt'l complaints, except as documented Musculoskeletal Musculoskeletal: Reports systems reviewed and no addt'l complaints, except as documented Integumentary Integumentary: Reports wounds and other Details: Nonhealing surgical biopsy since June 2021. Neurologic Neurologic: Reports systems reviewed and no addt'l complaints, except as documented Psychiatric Psychiatric: Reports systems reviewed and no addt'l complaints, except as documented Endocrine Endocrinology: Reports systems reviewed and no addt'l complaints, except as documented Hematologic/Lymphatic Hematologic/Lymphatic: Reports systems reviewed and no addt'l complaints, except as documented Allergic/Immunologic Allergic/Immunologic: Reports systems reviewed and no addt'l complaints, except as documented Vital Signs Vital Signs Vital Signs: 02/09/22 09:53 Temperature 96.2 F L Temperature Source Temporal Pulse Rate 77 Blood Pressure 132/71 H Blood Pressure Mean 91 Blood Pressure Source Monitor Debridement Note Debridement Note Wound debrided: Right lower back open wound Laterality: Right Type of Debridement: Excisional debridement Anesthesia Used: 5% Lidocaine Gel Depth: in the subcutaneous layer Percentage of wound debrided: 100 Instrument Used: 3mm curette Tissue Removed: Fibrin Severity: Fat Layer Exposed Amount of bleeding with debridement: Mild Bleeding Controlled with: Compression and gauze Patient tolerated procedure: Patient tolerated procedure well Post-Debridement Measurements and Additional Note: Post-Debridement Measurements/Treatment - Nurse 1 - General Ulcer Assessment Start: 02/09/22 09:19 Freq: Status: Active Protocol: [place] Activity Type Activity Date Activity User E-sign Co-sign Detail Recorded Client Recorded Date Recorded By Document 02/09/22 09:53 PAWAN [id number] 02/09/22 10:05 PAWAN 02/09/22 09:53 WC - Today's Visit Information Type of service Initial Visit Arrival Mode Ambulatory Patient Identification Verified (Name & Yes ) Patient Requires Transmission-Based No Precautions Vital Signs Temperature (97.8 F-99.1 F) 96.2 F L Temperature Source Temporal Pulse Rate (60-100) 77 Pulse Location Monitor Blood Pressure (90/60-120/80) 132/71 H Blood Pressure Mean 91 Source Monitor History Since Last Visit- (Skip if this is Patient's initial visit) Left Footwear Regular Shoe Right Footwear Regular Shoe Pain Scale: 0-10 Numeric Is Patient Pain Free? No WC - Nurse 1 - General Ulcer Measurement Start: 02/09/22 09:19 Freq: Status: Active Protocol: Activity Type Activity Date Activity User E-sign Co-sign Detail Recorded Client Recorded Date Recorded By Document 02/09/22 09:53 PAWAN [id number] 02/09/22 10:05 PAWAN 02/09/22 09:53 Wound Center Nurse 1 #1 right upper back -Combined with other wound No -Current Size (cm) - Length 0.5 -Current Size (cm) - Width 0.3 -Current Size (cm) - Depth 0.2 -Total Square Cm 0.15 -Date of Last Picture (Recall this 02/09/22 field) -Photo Taken Yes -Epithelialization None Present -Tunneling No -Undermining/Tunneling No -Circular Undermining No -Change in Wound Grade/Stage No -Exudate Amt Small -Exudate Type Serosanguineous -Wound Margin Distinct, Outline Attached -Granulation Amt None Present (0 %) -Slough/Fibrin Yes -Necrosis Amt Large (67-100%) -Necrotic Tissue Type Adherent Slough -Structure Exposed N/A -Texture (Valarie-wound Skin Appearance) No Abnormality, Assessed -Moisture (Valarie-wound Skin Appearance) No Abnormality, Assessed -Color (Valarie-wound Skin Appearance) No Abnormality, Assessed -Temperature (Valarie-wound Skin No Abnormality Appearance) (Pt Warm) -Tenderness on Palpation (Valarie-wound No Skin Appearance) -Ulcer Cleansing Rinsed/ Irrigated with Saline -Foul Odor after Cleansing No -Anesthetic Used 5% Lidocaine Gel WC - Nurse 2 - General Ulcer CM Notes Start: 02/09/22 09:19 Freq: Status: Active Protocol: Activity Type Activity Date Activity User E-sign Co-sign Detail Recorded Client Recorded Date Recorded By Document 02/09/22 09:19 MW [id number] 02/09/22 09:31 MW 02/09/22 09:19 Wound Center Nurse 2 -Time 09:20 -Correct Patient Yes -Correct Side, Site, Position Yes -Correct Procedure Yes -Procedure Performed Yes -Type of Procedure Debridement -Clinical Debridement Subcutaneous -Tissue Removed Subcutaneous -Post Debridement (cm) - Length 0.5 -Post Debridement (cm) - Width 0.4 -Post Debridement (cm) - Depth 0.2 -Total Square (Post) (cm) 0.20 -Area of Debridement (cm) - Length 0.5 -Area of Debridement (cm) - Width 0.4 -Total Square (Area) (cm) 0.20 -Tunneling No -Undermining/Tunneling Yes -Undermining/Tunneling Starts (O'clock 7 ) -Undermining/Tunneling Ends (O'clock) 10 -Maximum Distance (cm) 0.4 -Undermining/Tunneling Starts #2 (O' 12 clock) -Undermining/Tunneling Ends #2 (O' 5 clock) -Maximum Distance #2 (cm) 0.4 -Circular Undermining No -Wound/Ulcer Outcome Not Healed -Ulcer Cleansing Rinsed/ Irrigated with Saline -Foul Odor after Cleansing No -Bioengineered Tissue No -Bleeding Controlled with Pressure -Treatment Response Procedure Tolerated Well -Offloading No -Debridement - Subq, 1st 20sq cm Yes Pain Scale: 0-10 Numeric Is Patient Pain Free? Yes Assessment/Plan Assessment/Plan (1) Heart failure with reduced ejection fraction: CODE(S): I50.20 - Unspecified systolic (congestive) heart failure (2) Ventricular fibrillation: CODE(S): I49.01 - Ventricular fibrillation (3) Surgical wound, non healing: CODE(S): T81.89XA - Other complications of procedures, not elsewhere classified, initial encounter PLAN: Plan Wash area with antibacterial soap and pack with quarter inch iodoform gauze cover with gauze dressing and tape every day Obtained cultures of wound we will call with results Follow-up in 1 week
== END 2022-02-13 23:59 | disposition home or self-care (01) ==
LOC: WC 08:29
PROVIDERS: PCP Internal Medicine; Visit Provider Nurse Practitioner
DX: T81.89XA Other complications of procedures, not elsewhere classified, initial encounter (principal); C78.7 Secondary malignant neoplasm of liver and intrahepatic bile duct; C34.90 Malignant neoplasm of unspecified part of unspecified bronchus or lung; J44.9 Chronic obstructive pulmonary disease, unspecified; I11.0 Hypertensive heart disease with heart failure; I50.20 Unspecified systolic (congestive) heart failure; I49.01 Ventricular fibrillation; E11.9 Type 2 diabetes mellitus without complications; I25.10 Atherosclerotic heart disease of native coronary artery without angina pectoris; Z79.02 Long term (current) use of antithrombotics/antiplatelets; F17.200 Nicotine dependence, unspecified, uncomplicated; E78.5 Hyperlipidemia, unspecified; I25.2 Old myocardial infarction; Z79.899 Other long term (current) drug therapy; Y83.8 Other surgical procedures as the cause of abnormal reaction of the patient, or of later complication, without mention of misadventure at the time of the procedure
CPT/HCPCS: 11042; 87070; 87075; 87077; 87186; 87205; 99203; G0463

== ENCOUNTER 2022-03-16 08:22 | Outpatient (CLI) | payer MEDICARE, OTHER, SELFPAY ==
[2017-10-05 11:04] VITALS: BMI 28.2
--- NOTE | 2022-03-16 09:00 | PET_ITS ---
PROCEDURE: WHOLE BODY PET/CT SCAN, MID SKULL TO MID THIGH REASON FOR EXAM: Metastatic non-small cell lung cancer with liver metastasis, restaging COMPARISON EXAMINATION: PET scan 09/25/2017, CT 03/11/2018. TECHNIQUE: Following the intravenous administration of 13.7 mCi of F-18 FDG, multiplanar imaging acquisitions of the neck, chest, abdomen/pelvis to the mid thigh, obtained at 1 hour post radiopharmaceutical administration. Interpretation is with co-registeration of similar anatomic distribution of CT. Findings: Normal and physiologic distribution of radioisotope identified in the expected intensity of the hepatic and splenic parenchyma, urinary tract and gastrointestinal structures. There is gross anatomic distribution of the intracranial contents. Normal variant muscular activity of the prevertebral/longus coli muscles. Background liver activity measures 2.5. INDEX LESION SIZE SUV INTERPRETATION: 1. 1.1 x 1.1 cm nodule posterior to the left jugular vein on image 63 of series 2 with abnormal FDG activity (SUV 5.4) is new. 2. Low-density lesion of the left hepatic lobe on image 127 series 202 with focal abnormal FDG activity (SUV 5.1) is new. 3. Focal FDG activity of the left hepatic lobe on image 133 of the axial fused images with SUV 3.7, although a correlating hypodense lesion is not seen. There is notable localized biliary dilation involving the left hepatic lobe (CT image 135 series 202) that could represent a central, segmental biliary obstruction. 4. Celiac axis lymph node on image 141 of series 202 measures 1.3 x 1.4 cm with abnormal FDG activity (SUV 4.8). 5. Retroperitoneal focal activity on image 175 of series 301 (SUV 5.5) is difficult to correlate to a discrete soft tissue nodule (motion artifact) and could represent bowel activity, although the rounded, focal nature raises possibility of adenopathy. CT portion of the exam: Triangular consolidation of the bilateral medial lower lobes new since the prior PET scan, however, no associated abnormal FDG activity. Centrilobular emphysema similar. There is no demonstrated pleural abnormality. Normal heart and pericardium. Sternal wires and mediastinal surgical clips compatible with prior CABG. Normal mediastinum. Normal hilar regions. Normal unenhanced pulmonary arteries. There is atherosclerotic calcification of the aortic arch with tortuosity and elongation of the aortic arch and descending thoracic aorta. Simple cyst of the right hepatic lobe without associated abnormal FDG activity. There is non-visualization of the gallbladder, which may be secondary to either contraction or a prior cholecystectomy. Normal spleen. Normal pancreas. Normal bilateral adrenal glands. Normal right kidney. Normal left kidney. Normal visualized stomach. Normal small intestine. Normal colon. The appendix is visualized and appears normal. Extensive atherosclerosis of the abdominal aorta and iliac arteries, particularly the right common iliac artery. Normal inferior vena cava. No bladder wall thickening. There is absence of the uterus consistent with a prior hysterectomy. Degenerative changes of the thoracic and lumbar spine. Multiple compression fractures involving T5, T6, T8, T11, T12 and L4 are new since prior PET scan. Some of the fractures demonstrate low level FDG activity compatible with healing fractures. PET/PET/CT Tumor Base -Thigh Subs IMPRESSION: 1. ABNORMAL EXAMINATION. Since 09/25/2017, unfavorable change. 2. Left lower jugular adenopathy meets criteria for viable neoplasm. 3. At least one and possibly additional hepatic lesions meet criteria for viable neoplasm/hepatic metastasis. Small focal (low level, borderline) FDG activity does not clearly correlate to a defined hypodense lesion on CT but suspicious given likely associated segmental biliary obstruction, not previously evident. Evaluation with hepatic protocol MRI without and with IV contrast may yield additional information/characterization, if clinically appropriate. 4. Upper abdominal adenopathy (predominantly adjacent to the celiac axis but also possibly retroperitoneal) meet criteria for viable neoplasm/steve metastasis. 5. Multiple thoracolumbar compression fractures are new since 2018. Low level FDG activity favors healing fractures, although possibility of pathologic type compression fracture should also be considered (which could be clarified with MRI. 6. Bilateral lower lobe triangular consolidation without abnormal FDG activity, favoring fibrotic causes (including post radiation). 7. Chronic changes, as detailed above. Electronically Signed: Marcelino Parr MD ([place]) at 9:39 EDT ,
== END 2022-03-16 23:59 | disposition home or self-care (01) ==
LOC: ONC 08:24
PROVIDERS: PCP Internal Medicine; Referring Provider Internal Medicine Hematology & Oncology; Visit Provider Internal Medicine Hematology & Oncology
DX: C34.91 Malignant neoplasm of unspecified part of right bronchus or lung (principal); C78.7 Secondary malignant neoplasm of liver and intrahepatic bile duct; M48.55XA Collapsed vertebra, not elsewhere classified, thoracolumbar region, initial encounter for fracture; J44.9 Chronic obstructive pulmonary disease, unspecified; I50.20 Unspecified systolic (congestive) heart failure; I49.01 Ventricular fibrillation; T81.89XA Other complications of procedures, not elsewhere classified, initial encounter; Y83.8 Other surgical procedures as the cause of abnormal reaction of the patient, or of later complication, without mention of misadventure at the time of the procedure
CPT/HCPCS: 11042; 78815; 87070; 87075; 87077; 87186; 87205; A9552

== ENCOUNTER 2022-03-16 10:00 | Outpatient (RCR) | payer MEDICARE, OTHER, SELFPAY ==
[2017-10-05 11:04] VITALS: BMI 28.2
[2022-02-14 00:39] VITALS: BP 132/71; PULSE 77; TEMP 35.7
[2022-02-16 09:28] VITALS: BP 99/55; PULSE 74; TEMP 36.1
--- NOTE | 2022-02-16 10:38 | PCM.WC.PN ---
History of Present Illness Date of Service: 02/16/22 Chief Complaint: Follow-up on open wound right adjacent to spine mid back. History of Wound: 71-year-old white female that has many comorbidities and problems she has liver cancer and lung cancer surgery she is diabetic controlled with diet she has history severe COPD congestive heart failure and many other problems. Patient had a biopsy of a lump on her back removed in around June of this last year by Dr. Werner and it never healed. Progress of Wound: Still open with undermining, looks like a puncture wound. Been using iodoform gauze packing circumferential undermining area seems smaller Subjective Subjective Patient has no concerns Objective Data Objective Data No sign of infection, patient has been taking her antibiotics and treatment for strep found in her back. Believe this will help with healing Vital Signs: Vital Signs Temp Pulse BP 97.0 F L 74 99/55 L 02/16/22 09:28 02/16/22 09:28 02/16/22 09:28 Lab / Micro Data Attestation: I reviewed the patient's lab results. Physical Exam Const oriented x3 General Appearance: cooperative Exam Limitations: no limitations HEENT normocephalic Head and Scalp: normal to inspection Face and Sinus: normal facial exam Nose: external nose normal General Ear: hearing grossly impaired External Ear: external ears normal Mouth: oral and palatal mucosa normal Eyes PERRL General Eye: normal appearance of both eyes Neck full ROM General: normal visual inspection Resp normal respiratory effort Effort and Inspection: able to speak in complete sentences Auscultation: clear to auscultation bilaterally Cardio regular rate and regular rhythm Palpation: normal PMI Rate: regular rate Rhythm: regular rhythm GI Auscultation: normoactive bowel sounds Palpation: soft and no hepatosplenomegaly external exam normal Back/Spine Cervical Spine: cervical ROM normal Thoracic Spine / Upper Back: normal to inspection Lumbar Spine / Lower Back: normal to inspection Extremity normal to inspection General Extremity: normal exam except as noted Skin Skin Narrative: Postop puncture wound from a biopsy done in June 2021 Wounds: wounds noted Neuro oriented x3 Psych Appearance: grossly normal Speech: normal speech Thought Content: normal thought content Judgement: judgement good Debridement Note Debridement Note Wound debrided: Surgical wound right back nonhealing Laterality: Right Type of Debridement: Excisional debridement Anesthesia Used: 5% Lidocaine Gel Depth: in the subcutaneous layer Percentage of wound debrided: 100 Instrument Used: 3mm curette Tissue Removed: Fibrin and some slough Severity: Fat Layer Exposed Amount of bleeding with debridement: Mild Bleeding Controlled with: Compression and gauze Patient tolerated procedure: Patient tolerated procedure well Post-Debridement Measurements and Additional Note: Post-Debridement Measurements/Treatment - Nurse 1 - General Ulcer Assessment Start: 02/16/22 09:27 Freq: Status: Active Protocol: [facility] Activity Type Activity Date Activity User E-sign Co-sign Detail Recorded Client Recorded Date Recorded By Document 02/16/22 09:28 SOLOMON [id number] 02/16/22 09:32 SOLOMON 02/16/22 09:28 - Today's Visit Information Type of service Follow-up Visit (Physician/INDUSTRIAL COOK ) Arrival Mode Ambulatory Patient Identification Verified (Name & Yes ) Vital Signs Temperature (97.8 F-99.1 F) 97.0 F L Temperature Source Temporal Pulse Rate (60-100) 74 Pulse Location Monitor Blood Pressure (90/60-120/80) 99/55 L Blood Pressure Mean (mm Hg) 69 Source Monitor Position Sitting Blood Pressure Location Right Arm History Since Last Visit- (Skip if this is Patient's initial visit) Have you changed medications since your No last visit? Any new allergies or adverse reactions No Had a fall/change in ADL's that may No increase risk of falls Signs or symptoms of abuse and/or No neglect since last visit Have you been in the hospital since your No last visit? Has dressing in place as prescribed Yes Has compression in place as prescribed N/A Has offloadiing in place as prescribed N/A Experienced any changes in pain level or No management Left Footwear Regular Shoe Right Footwear Regular Shoe Pain Scale: 0-10 Numeric Is Patient Pain Free? Yes - Nurse 1 - General Ulcer Measurement Start: 02/16/22 09:27 Freq: Status: Active Protocol: Activity Type Activity Date Activity User E-sign Co-sign Detail Recorded Client Recorded Date Recorded By Document 02/16/22 09:28 SOLOMON [id number] 02/16/22 09:32 SOLOMON 02/16/22 09:28 Wound Center Nurse 1 #1 right upper back -Current Size (cm) - Length 0.4 -Current Size (cm) - Width 0.2 -Current Size (cm) - Depth 0.2 -Total Square Cm 0.08 -Undermining/Tunneling Starts (O'clock 7 ) -Undermining/Tunneling Ends (O'clock) 10 -Maximum Distance (cm) 0.2 -Undermining/Tunneling Starts #2 (O' 12 clock) -Undermining/Tunneling Ends #2 (O' 5 clock) -Maximum Distance #2 (cm) 0.2 -Exudate Amt Small -Exudate Type Serosanguineous -Wound Margin Distinct, Outline Attached -Granulation Amt Small (1-33%) -Granulation Quality [place] -Necrosis Amt Small (1-33%) -Necrotic Tissue Type Adherent Slough -Texture (Valarie-wound Skin Appearance) Assessed, Scarring -Moisture (Valarie-wound Skin Appearance) No Abnormality, Assessed -Color (Valarie-wound Skin Appearance) No Abnormality, Assessed -Temperature (Valarie-wound Skin No Abnormality Appearance) (Pt Warm) -Tenderness on Palpation (Valarie-wound No Skin Appearance) -Ulcer Cleansing Rinsed/ Irrigated with Saline -Foul Odor after Cleansing No -Anesthetic Used 5% Lidocaine Gel WC - Nurse 2 - General Ulcer CM Notes Start: 02/16/22 09:27 Freq: Status: Active Protocol: Activity Type Activity Date Activity User E-sign Co-sign Detail Recorded Client Recorded Date Recorded By Document 02/16/22 09:56 LUIS [id number] 02/16/22 09:59 PL 02/16/22 09:56 Wound Center Nurse 2 -Time 09:39 -Correct Patient Yes -Correct Side, Site, Position Yes -Correct Procedure Yes -Procedure Performed Yes -Type of Procedure Debridement -Clinical Debridement Subcutaneous -Tissue Removed Subcutaneous -Post Debridement (cm) - Length 0.6 -Post Debridement (cm) - Width 0.4 -Post Debridement (cm) - Depth 0.4 -Total Square (Post) (cm) 0.24 -Area of Debridement (cm) - Length 0.6 -Area of Debridement (cm) - Width 4 -Total Square (Area) (cm) 2.4 -Tunneling No -Undermining/Tunneling Yes -Undermining/Tunneling Starts (O'clock 12 ) -Undermining/Tunneling Ends (O'clock) 12 -Maximum Distance (cm) 0.3 -Circular Undermining Yes -Ulcer Cleansing Rinsed/ Irrigated with Saline -Foul Odor after Cleansing No -Bioengineered Tissue No -Bleeding Controlled with Pressure -Treatment Response Procedure Tolerated Well -Debridement - Subq, 1st 20sq cm Yes Pain Scale: 0-10 Numeric Is Patient Pain Free? Yes Assessment/Plan Assessment/Plan (1) Heart failure with reduced ejection fraction: CODE(S): I50.20 - Unspecified systolic (congestive) heart failure (2) Ventricular fibrillation: CODE(S): I49.01 - Ventricular fibrillation (3) Surgical wound, non healing: CODE(S): T81.89XA - Other complications of procedures, not elsewhere classified, initial encounter PLAN: Plan Wash area with antibacterial soap and pack with quarter inch iodoform gauze cover with gauze dressing and tape every day Finish antibiotic therapy Follow-up in 1 week
[2022-02-23 09:34] VITALS: BP 104/63; PULSE 96; TEMP 36.1
--- NOTE | 2022-02-23 10:04 | PN.PCM_ITS ---
History of Present Illness Date of Service: 02/23/22 Chief Complaint: Follow-up on open wound right adjacent to spine mid back. History of Wound: 71-year-old white female that has many comorbidities and problems she has liver cancer and lung cancer surgery she is diabetic controlled with diet she has history severe COPD congestive heart failure and many other problems. Patient had a biopsy of a lump on her back removed in around June of this last year by Dr. Werner and it never healed. Progress of Wound: Still open with undermining, that is hardly there anymore. Will change to Promogran today fine to close Subjective Subjective Patient complains of upset stomach with the linezolid we will ask her to take it every other day Objective Data Objective Data Vital Signs: Vital Signs Temp Pulse BP 97.0 F L 96 104/63 02/23/22 09:34 02/23/22 09:34 02/23/22 09:34 Lab / Micro Data Attestation: I reviewed the patient's lab results. Physical Exam Const oriented x3 General Appearance: cooperative Exam Limitations: no limitations HEENT normocephalic Head and Scalp: normal to inspection Face and Sinus: normal facial exam Nose: external nose normal General Ear: hearing grossly impaired External Ear: external ears normal Mouth: oral and palatal mucosa normal Eyes PERRL General Eye: normal appearance of both eyes Neck full ROM General: normal visual inspection Resp normal respiratory effort Effort and Inspection: able to speak in complete sentences Auscultation: clear to auscultation bilaterally Cardio regular rate and regular rhythm Palpation: normal PMI Rate: regular rate Rhythm: regular rhythm GI Auscultation: normoactive bowel sounds Palpation: soft and no hepatosplenomegaly external exam normal Back/Spine Cervical Spine: cervical ROM normal Thoracic Spine / Upper Back: normal to inspection Lumbar Spine / Lower Back: normal to inspection Extremity normal to inspection General Extremity: normal exam except as noted Skin Skin Narrative: Postop puncture wound from a biopsy done in June 2021 Wounds: wounds noted Neuro oriented x3 Psych Appearance: grossly normal Speech: normal speech Thought Content: normal thought content Judgement: judgement good Debridement Note Debridement Note Wound debrided: Back wound surgical dehiscence Laterality: Right Type of Debridement: Excisional debridement Anesthesia Used: 5% Lidocaine Gel Depth: in the subcutaneous layer Percentage of wound debrided: 100 Instrument Used: 3mm curette Tissue Removed: Fibrin and some slough Severity: Fat Layer Exposed Amount of bleeding with debridement: None Bleeding Controlled with: Compression and gauze Patient tolerated procedure: Patient tolerated procedure well Post-Debridement Measurements and Additional Note: Post-Debridement Measurements/Treatment WC - Nurse 1 - General Ulcer Assessment Start: 02/16/22 09:27 Freq: Status: Active Protocol: [facility] Activity Type Activity Date Activity User E-sign Co-sign Detail Recorded Client Recorded Date Recorded By Document 02/16/22 09:28 KR [id number] 02/16/22 09:32 KR Document 02/23/22 09:34 KR [id number] 02/23/22 09:37 KR 02/16/22 02/23/22 09:28 09:34 WC - Today's Visit Information Type of service Follow-up Visit Follow-up Visit (Physician/TRAFFIC ROUTING ENGINEER (Physician/TRAFFIC ROUTING ENGINEER ) ) Arrival Mode Ambulatory Ambulatory Patient Identification Verified (Name & Yes Yes ) Vital Signs Temperature (97.8 F-99.1 F) 97.0 F L 97.0 F L Temperature Source Temporal Temporal Pulse Rate (60-100) 74 96 Pulse Location Monitor Monitor Blood Pressure (90/60-120/80) 99/55 L 104/63 Blood Pressure Mean (mm Hg) 69 76 Source Monitor Monitor Position Sitting Semi-Fowlers Blood Pressure Location Right Arm Right Arm History Since Last Visit- (Skip if this is Patient's initial visit) Have you changed medications since your No No last visit? Any new allergies or adverse reactions No No Had a fall/change in ADL's that may No No increase risk of falls Signs or symptoms of abuse and/or No No neglect since last visit Have you been in the hospital since your No No last visit? Has dressing in place as prescribed Yes Yes Has compression in place as prescribed N/A N/A Has offloadiing in place as prescribed N/A N/A Experienced any changes in pain level or No No management Left Footwear Regular Shoe Regular Shoe Right Footwear Regular Shoe Regular Shoe Pain Scale: 0-10 Numeric Is Patient Pain Free? Yes Yes MIGUEL ANGEL Spence Nurse 1 - General Ulcer Measurement Start: 02/16/22 09:27 Freq: Status: Active Protocol: Activity Type Activity Date Activity User E-sign Co-sign Detail Recorded Client Recorded Date Recorded By Document 02/16/22 09:28 KR [id number] 02/16/22 09:32 KR Document 02/23/22 09:34 KR [id number] 02/23/22 09:37 KR 02/16/22 02/23/22 09:28 09:34 Wound Center Nurse 1 #1 right upper back -Current Size (cm) - Length 0.4 0.5 -Current Size (cm) - Width 0.2 0.4 -Current Size (cm) - Depth 0.2 0.4 -Total Square Cm 0.08 0.20 -Undermining/Tunneling Starts (O'clock 7 ) -Undermining/Tunneling Ends (O'clock) 10 -Maximum Distance (cm) 0.2 -Undermining/Tunneling Starts #2 (O' 12 clock) -Undermining/Tunneling Ends #2 (O' 5 clock) -Maximum Distance #2 (cm) 0.2 -Exudate Amt Small Small -Exudate Type Serosanguineous Serosanguineous -Wound Margin Distinct, Distinct, Outline Outline Attached Attached -Granulation Amt Small (1-33%) Large (67-100%) -Granulation Quality [place] Pale -Necrosis Amt Small (1-33%) None Present (0 %) -Necrotic Tissue Type Adherent Slough -Texture (Valarie-wound Skin Appearance) Assessed, Assessed, Scarring Scarring -Moisture (Valarie-wound Skin Appearance) No Abnormality, No Abnormality, Assessed Assessed -Color (Valarie-wound Skin Appearance) No Abnormality, No Abnormality, Assessed Assessed -Temperature (Valarie-wound Skin No Abnormality No Abnormality Appearance) (Pt Warm) (Pt Warm) -Tenderness on Palpation (Valarie-wound No No Skin Appearance) -Ulcer Cleansing Rinsed/ Rinsed/ Irrigated with Irrigated with Saline Saline -Foul Odor after Cleansing No No -Anesthetic Used 5% Lidocaine 4% Lidocaine Gel Solution WC - Nurse 2 - General Ulcer CM Notes Start: 02/16/22 09:27 Freq: Status: Active Protocol: Activity Type Activity Date Activity User E-sign Co-sign Detail Recorded Client Recorded Date Recorded By Document 02/16/22 09:56 PL [id number] 02/16/22 09:59 PL Document 02/23/22 09:51 MW [id number] 02/23/22 09:56 MW 02/16/22 02/23/22 09:56 09:51 Wound Center Nurse 2 #1 right upper back -Time 09:39 09:52 -Correct Patient Yes Yes -Correct Side, Site, Position Yes Yes -Correct Procedure Yes Yes -Procedure Performed Yes Yes -Type of Procedure Debridement Debridement -Clinical Debridement Subcutaneous Subcutaneous -Tissue Removed Subcutaneous Subcutaneous -Post Debridement (cm) - Length 0.6 0.6 -Post Debridement (cm) - Width 0.4 0.4 -Post Debridement (cm) - Depth 0.4 0.2 -Total Square (Post) (cm) 0.24 0.24 -Area of Debridement (cm) - Length 0.6 0.6 -Area of Debridement (cm) - Width 4 0.4 -Total Square (Area) (cm) 2.4 0.24 -Tunneling No No -Undermining/Tunneling Yes No -Undermining/Tunneling Starts (O'clock 12 ) -Undermining/Tunneling Ends (O'clock) 12 -Maximum Distance (cm) 0.3 -Circular Undermining Yes No -Wound/Ulcer Outcome Not Healed -Ulcer Cleansing Rinsed/ Rinsed/ Irrigated with Irrigated with Saline Saline -Foul Odor after Cleansing No No -Bioengineered Tissue No No -Bleeding Controlled with Pressure Pressure -Treatment Response Procedure Procedure Tolerated Well Tolerated Well -Offloading No -Debridement - Subq, 1st 20sq cm Yes Yes Pain Scale: 0-10 Numeric Is Patient Pain Free? Yes Yes WC - Nurse 3 - General Ulcer D/C NN Start: 02/16/22 09:27 Freq: Status: Active Protocol: Activity Type Activity Date Activity User E-sign Co-sign Detail Recorded Client Recorded Date Recorded By Document 02/16/22 10:43 KR [id number] 02/16/22 10:44 KR Document 02/23/22 09:56 MW [id number] 02/23/22 09:57 MW 02/16/22 02/23/22 10:43 09:56 Wound Care Nurse 3 #1 right upper back -Ulcer Cleansing Rinsed/ Rinsed/ Irrigated with Irrigated with Saline Saline -Foul Odor after Cleansing No -Negative Pressure Wound Therapy N/A -Primary Dressing Applied Mepilex Border, Promogran Nugauze, Iodoform -Primary Dressing Covered/Secured with Dry Gauze, Secured with Tape -Mepilex Border 1 -Nugauze, Iodoform 07/20 1 -Promogran 1 Treatment Response Procedure Tolerated Well Pain Scale: 0-10 Numeric Is Patient Pain Free? Yes Yes Teaching: Wound Center Dressing Your Wound -Person Taught Patient -Teaching Method Discussion, Demonstration -Response to teaching Verbalize understanding WC - Visit Discharge Discharge Condition Stable Ambulatory Status Ambulatory Transportation Private Auto Accompanied by self Medication Reconcilliation completed & No provided to patient/care provider Clinical Summary of Care Provided Yes Assessment/Plan Assessment/Plan (1) Heart failure with reduced ejection fraction: CODE(S): I50.20 - Unspecified systolic (congestive) heart failure (2) Ventricular fibrillation: CODE(S): I49.01 - Ventricular fibrillation (3) Surgical wound, non healing: CODE(S): T81.89XA - Other complications of procedures, not elsewhere classified, initial encounter PLAN: Plan Wash area with antibacterial soap and pack with Promogran moistened cover with gauze dressing and tape every day Finish antibiotic therapy try taking only every other day Follow-up in 1 week
[2022-03-09 09:25] VITALS: BP 101/58; TEMP 36.6
--- NOTE | 2022-03-09 10:52 | PN.PCM_ITS ---
History of Present Illness Date of Service: 03/09/22 Chief Complaint: Follow-up on open wound right adjacent to spine mid back. History of Wound: 71-year-old white female that has many comorbidities and problems she has liver cancer and lung cancer surgery she is diabetic controlled with diet she has history severe COPD congestive heart failure and many other problems. Patient had a biopsy of a lump on her back removed in around June of this last year by Dr. Werner and it never healed. Progress of Wound: Still open with undermining from 6-12, that is hardly there anymore. Doing well on the Promogran . Subjective Subjective Patient is unable to see but her account liaison hospice states it looks better Objective Data Objective Data Healing nicely starting to close up still there smaller measurements are good no sign of infection Vital Signs: Vital Signs Temp Pulse BP 97.8 F 96 101/58 L 03/09/22 09:25 02/23/22 09:34 03/09/22 09:25 Lab / Micro Data Attestation: I reviewed the patient's lab results. Physical Exam Const oriented x3 General Appearance: cooperative Exam Limitations: no limitations HEENT normocephalic Head and Scalp: normal to inspection Face and Sinus: normal facial exam Nose: external nose normal General Ear: hearing grossly impaired External Ear: external ears normal Mouth: oral and palatal mucosa normal Eyes PERRL General Eye: normal appearance of both eyes Neck full ROM General: normal visual inspection Resp normal respiratory effort Effort and Inspection: able to speak in complete sentences Auscultation: clear to auscultation bilaterally Cardio regular rate and regular rhythm Palpation: normal PMI Rate: regular rate Rhythm: regular rhythm GI Auscultation: normoactive bowel sounds Palpation: soft and no hepatosplenomegaly external exam normal Back/Spine Cervical Spine: cervical ROM normal Thoracic Spine / Upper Back: normal to inspection Lumbar Spine / Lower Back: normal to inspection Extremity normal to inspection General Extremity: normal exam except as noted Skin Skin Narrative: Postop puncture wound from a biopsy done in June 2021 Wounds: wounds noted Neuro oriented x3 Psych Appearance: grossly normal Speech: normal speech Thought Content: normal thought content Judgement: judgement good Debridement Note Debridement Note Wound debrided: Right mid back Laterality: Right Type of Debridement: Excisional debridement Anesthesia Used: 5% Lidocaine Gel Depth: in the subcutaneous layer Percentage of wound debrided: 100 Instrument Used: 3mm curette Tissue Removed: Fibrin and some slough Severity: Fat Layer Exposed Amount of bleeding with debridement: Mild Bleeding Controlled with: Compression and gauze Patient tolerated procedure: Patient tolerated procedure well Post-Debridement Measurements and Additional Note: Post-Debridement Measurements/Treatment - Nurse 1 - General Ulcer Assessment Start: 02/16/22 09:27 Freq: Status: Active Protocol: MIGUEL [email or web address] Activity Type Activity Date Activity User E-sign Co-sign Detail Recorded Client Recorded Date Recorded By Document 02/16/22 09:28 KR [id number] 02/16/22 09:32 KR Document 02/23/22 09:34 KR [id number] 02/23/22 09:37 KR Document 03/09/22 09:25 KR [id number] 03/09/22 09:27 KR 02/16/22 02/23/22 03/09/22 09:28 09:34 09:25 - Today's Visit Information Type of service Follow-up Visit Follow-up Visit Follow-up Visit (Physician/MASTER POLICE DETECTIVE (Physician/MASTER POLICE DETECTIVE (Physician/MASTER POLICE DETECTIVE ) ) ) Arrival Mode Ambulatory Ambulatory Ambulatory Patient Identification Verified (Name & Yes Yes Yes ) Vital Signs Temperature (97.8 F-99.1 F) 97.0 F L 97.0 F L 97.8 F Temperature Source Temporal Temporal Temporal Pulse Rate (60-100) 74 96 Pulse Location Monitor Monitor Monitor Blood Pressure (90/60-120/80) 99/55 L 104/63 101/58 L Blood Pressure Mean (mm Hg) 69 76 72 Source Monitor Monitor Monitor Position Sitting Semi-Fowlers Sitting Blood Pressure Location Right Arm Right Arm Right Arm History Since Last Visit- (Skip if this is Patient's initial visit) Have you changed medications since your No No No last visit? Any new allergies or adverse reactions No No No Had a fall/change in ADL's that may No No No increase risk of falls Signs or symptoms of abuse and/or No No No neglect since last visit Have you been in the hospital since your No No No last visit? Has dressing in place as prescribed Yes Yes Yes Has compression in place as prescribed N/A N/A N/A Has offloadiing in place as prescribed N/A N/A N/A Experienced any changes in pain level or No No No management Left Footwear Regular Shoe Regular Shoe Regular Shoe Right Footwear Regular Shoe Regular Shoe Regular Shoe Pain Scale: 0-10 Numeric Is Patient Pain Free? Yes Yes Yes WC - Nurse 1 - General Ulcer Measurement Start: 02/16/22 09:27 Freq: Status: Active Protocol: Activity Type Activity Date Activity User E-sign Co-sign Detail Recorded Client Recorded Date Recorded By Document 02/16/22 09:28 KR [id number] 02/16/22 09:32 KR Document 02/23/22 09:34 KR [id number] 02/23/22 09:37 KR Document 03/09/22 09:25 KR [id number] 03/09/22 09:27 KR 02/16/22 02/23/22 03/09/22 09:28 09:34 09:25 Wound Center Nurse 1 #1 right upper back -Current Size (cm) - Length 0.4 0.5 0.3 -Current Size (cm) - Width 0.2 0.4 0.3 -Current Size (cm) - Depth 0.2 0.4 0.4 -Total Square Cm 0.08 0.20 0.09 -Undermining/Tunneling Starts (O'clock 7 ) -Undermining/Tunneling Ends (O'clock) 10 -Maximum Distance (cm) 0.2 -Undermining/Tunneling Starts #2 (O' 12 clock) -Undermining/Tunneling Ends #2 (O' 5 clock) -Maximum Distance #2 (cm) 0.2 -Exudate Amt Small Small Small -Exudate Type Serosanguineous Serosanguineous Serosanguineous -Wound Margin Distinct, Distinct, Distinct, Outline Outline Outline Attached Attached Attached -Granulation Amt Small (1-33%) Large (67-100%) Small (1-33%) -Granulation Quality [place] Pale Red -Necrosis Amt Small (1-33%) None Present (0 Medium (34-66%) %) -Necrotic Tissue Type Adherent Slough Adherent Slough -Texture (Valarie-wound Skin Appearance) Assessed, Assessed, Assessed, Scarring Scarring Scarring -Moisture (Valarie-wound Skin Appearance) No Abnormality, No Abnormality, No Abnormality, Assessed Assessed Assessed -Color (Valarie-wound Skin Appearance) No Abnormality, No Abnormality, No Abnormality, Assessed Assessed Assessed -Temperature (Valarie-wound Skin No Abnormality No Abnormality No Abnormality Appearance) (Pt Warm) (Pt Warm) (Pt Warm) -Tenderness on Palpation (Valarie-wound No No No Skin Appearance) -Ulcer Cleansing Rinsed/ Rinsed/ Rinsed/ Irrigated with Irrigated with Irrigated with Saline Saline Saline -Foul Odor after Cleansing No No No -Anesthetic Used 5% Lidocaine 4% Lidocaine 5% Lidocaine Gel Solution Gel WC - Nurse 2 - General Ulcer CM Notes Start: 02/16/22 09:27 Freq: Status: Active Protocol: Activity Type Activity Date Activity User E-sign Co-sign Detail Recorded Client Recorded Date Recorded By Document 02/16/22 09:56 PL [id number] 02/16/22 09:59 PL Document 02/23/22 09:51 MW [id number] 02/23/22 09:56 MW Document 03/09/22 09:41 MW [id number] 03/09/22 09:44 MW 02/16/22 02/23/22 03/09/22 09:56 09:51 09:41 Wound Center Nurse 2 #1 right upper back -Time 09:39 09:52 09:42 -Correct Patient Yes Yes Yes -Correct Side, Site, Position Yes Yes Yes -Correct Procedure Yes Yes Yes -Procedure Performed Yes Yes Yes -Type of Procedure Debridement Debridement Debridement -Clinical Debridement Subcutaneous Subcutaneous Subcutaneous -Tissue Removed Subcutaneous Subcutaneous Subcutaneous -Post Debridement (cm) - Length 0.6 0.6 0.4 -Post Debridement (cm) - Width 0.4 0.4 0.4 -Post Debridement (cm) - Depth 0.4 0.2 0.3 -Total Square (Post) (cm) 0.24 0.24 0.16 -Area of Debridement (cm) - Length 0.6 0.6 0.4 -Area of Debridement (cm) - Width 4 0.4 0.4 -Total Square (Area) (cm) 2.4 0.24 0.16 -Tunneling No No No -Undermining/Tunneling Yes No Yes -Undermining/Tunneling Starts (O'clock 12 6 ) -Undermining/Tunneling Ends (O'clock) 12 12 -Maximum Distance (cm) 0.3 0.2 -Circular Undermining Yes No No -Wound/Ulcer Outcome Not Healed Not Healed -Ulcer Cleansing Rinsed/ Rinsed/ Rinsed/ Irrigated with Irrigated with Irrigated with Saline Saline Saline -Foul Odor after Cleansing No No No -Bioengineered Tissue No No No -Bleeding Controlled with Pressure Pressure Pressure -Treatment Response Procedure Procedure Procedure Tolerated Well Tolerated Well Tolerated Well -Offloading No No -Debridement - Subq, 1st 20sq cm Yes Yes Yes Pain Scale: 0-10 Numeric Is Patient Pain Free? Yes Yes Yes - Nurse 3 - General Ulcer D/C NN Start: 02/16/22 09:27 Freq: Status: Active Protocol: Activity Type Activity Date Activity User E-sign Co-sign Detail Recorded Client Recorded Date Recorded By Document 02/16/22 10:43 KR [id number] 02/16/22 10:44 KR Document 02/23/22 09:56 MW [id number] 02/23/22 09:57 MW Document 03/09/22 09:44 MW [id number] 03/09/22 09:45 MW 02/16/22 02/23/22 03/09/22 10:43 09:56 09:44 Wound Care Nurse 3 #1 right upper back -Ulcer Cleansing Rinsed/ Rinsed/ Rinsed/ Irrigated with Irrigated with Irrigated with Saline Saline Saline -Foul Odor after Cleansing No No -Negative Pressure Wound Therapy N/A N/A -Primary Dressing Applied Mepilex Border, Promogran Promogran Nugauze, Iodoform -Primary Dressing Covered/Secured with Dry Gauze, Dry Gauze, Secured with Secured with Tape Tape -Mepilex Border 1 -Nugauze, Iodoform 1/4 1 -Promogran 1 1 Treatment Response Procedure Procedure Tolerated Well Tolerated Well Pain Scale: 0-10 Numeric Is Patient Pain Free? Yes Yes Yes Teaching: Wound Center Dressing Your Wound -Person Taught Patient Patient,Family -Teaching Method Discussion, Discussion Demonstration -Response to teaching Verbalize Verbalize understanding understanding WC - Visit Discharge Discharge Condition Stable Stable Ambulatory Status Ambulatory Ambulatory Transportation Private Auto Private Auto Accompanied by self family Medication Reconcilliation completed & No No provided to patient/care provider Clinical Summary of Care Provided Yes Yes Assessment/Plan Assessment/Plan (1) Heart failure with reduced ejection fraction: CODE(S): I50.20 - Unspecified systolic (congestive) heart failure (2) Ventricular fibrillation: CODE(S): I49.01 - Ventricular fibrillation (3) Surgical wound, non healing: CODE(S): T81.89XA - Other complications of procedures, not elsewhere classified, initial encounter PLAN: Plan Wash area with antibacterial soap and pack with Promogran moistened cover with gauze dressing and tape every day Follow-up in 1 week
[2022-03-16 11:34] VITALS: BP 138/74; PULSE 78; TEMP 36
--- NOTE | 2022-03-16 12:46 | PCM.WC.PN ---
History of Present Illness Date of Service: 03/16/22 Chief Complaint: Follow-up on open wound right adjacent to spine mid back. History of Wound: 71-year-old white female that has many comorbidities and problems she has liver cancer and lung cancer surgery she is diabetic controlled with diet she has history severe COPD congestive heart failure and many other problems. Patient had a biopsy of a lump on her back removed in around June of this last year by Dr. Werner and it never healed. Progress of Wound: Still open with undermining from 6-12, that is hardly there anymore. Doing well on the Promogran . Subjective Subjective Patient unable to see it but wishes it would be over Objective Data Objective Data Well approximation of the tissue no sign of infection though will culture to see you if anything inside is slowing up. Vital Signs: Vital Signs Temp Pulse BP 96.8 F L 78 138/74 H 03/16/22 11:34 03/16/22 11:34 03/16/22 11:34 Physical Exam Const oriented x3 General Appearance: cooperative Exam Limitations: no limitations HEENT normocephalic Head and Scalp: normal to inspection Face and Sinus: normal facial exam Nose: external nose normal General Ear: hearing grossly impaired External Ear: external ears normal Mouth: oral and palatal mucosa normal Eyes PERRL General Eye: normal appearance of both eyes Neck full ROM General: normal visual inspection Resp normal respiratory effort Effort and Inspection: able to speak in complete sentences Auscultation: clear to auscultation bilaterally Cardio regular rate and regular rhythm Palpation: normal PMI Rate: regular rate Rhythm: regular rhythm GI Auscultation: normoactive bowel sounds Palpation: soft and no hepatosplenomegaly external exam normal Back/Spine Cervical Spine: cervical ROM normal Thoracic Spine / Upper Back: normal to inspection Lumbar Spine / Lower Back: normal to inspection Extremity normal to inspection General Extremity: normal exam except as noted Skin Skin Narrative: Postop puncture wound from a biopsy done in June 2021 Wounds: wounds noted Neuro oriented x3 Psych Appearance: grossly normal Speech: normal speech Thought Content: normal thought content Judgement: judgement good Debridement Note Debridement Note Post-Debridement Measurements and Additional Note: Post-Debridement Measurements/Treatment MIGUEL ANGEL - Nurse 1 - General Ulcer Assessment Start: 02/16/22 09:27 Freq: Status: Active Protocol: [facility]A Activity Type Activity Date Activity User E-sign Co-sign Detail Recorded Client Recorded Date Recorded By Document 02/16/22 09:28 SOLOMON [id number] 02/16/22 09:32 KR Document 02/23/22 09:34 KR [id number] 02/23/22 09:37 KR Document 03/09/22 09:25 KR [id number] 03/09/22 09:27 KR Document 03/16/22 11:34 KR [id number] 03/16/22 11:35 KR 02/16/22 02/23/22 03/09/22 09:28 09:34 09:25 - Today's Visit Information Type of service Follow-up Visit Follow-up Visit Follow-up Visit (Physician/DIRECTOR COUNCIL ON [employer]ING (Physician/DIRECTOR COUNCIL ON AGING (Physician/DIRECTOR [employer]NCIL ON [employer]ING ) ) ) Arrival Mode Ambulatory Ambulatory Ambulatory Patient Identification Verified (Name & Yes Yes Yes ) Vital Signs Temperature (97.8 F-99.1 F) 97.0 F L 97.0 F L 97.8 F Temperature Source Temporal Temporal Temporal Pulse Rate (60-100) 74 96 Pulse Location Monitor Monitor Monitor Blood Pressure (90/60-120/80) 99/55 L 104/63 101/58 L Blood Pressure Mean (mm Hg) 69 76 72 Source Monitor Monitor Monitor Position Sitting Semi-Fowlers Sitting Blood Pressure Location Right Arm Right Arm Right Arm History Since Last Visit- (Skip if this is Patient's initial visit) Have you changed medications since your No No No last visit? Any new allergies or adverse reactions No No No Had a fall/change in ADL's that may No No No increase risk of falls Signs or symptoms of abuse and/or No No No neglect since last visit Have you been in the hospital since your No No No last visit? Has dressing in place as prescribed Yes Yes Yes Has compression in place as prescribed N/A N/A N/A Has offloadiing in place as prescribed N/A N/A N/A Experienced any changes in pain level or No No No management Left Footwear Regular Shoe Regular Shoe Regular Shoe Right Footwear Regular Shoe Regular Shoe Regular Shoe Pain Scale: 0-10 Numeric Is Patient Pain Free? Yes Yes Yes 03/16/22 11:34 WC - Today's Visit Information Type of service Follow-up Visit (Physician/DIRECTOR [employer]NC[employer] ) Arrival Mode Ambulatory Patient Identification Verified (Name & Yes ) Vital Signs Temperature (97.8 F-99.1 F) 96.8 F L Temperature Source Temporal Pulse Rate (60-100) 78 Pulse Location Monitor Blood Pressure (90/60-120/80) 138/74 H Blood Pressure Mean (mm Hg) 95 Source Monitor Position Semi-Fowlers Blood Pressure Location Right Arm History Since Last Visit- (Skip if this is Patient's initial visit) Have you changed medications since your No last visit? Any new allergies or adverse reactions No Had a fall/change in ADL's that may No increase risk of falls Signs or symptoms of abuse and/or No neglect since last visit Have you been in the hospital since your No last visit? Has dressing in place as prescribed Yes Has compression in place as prescribed N/A Has offloadiing in place as prescribed N/A Experienced any changes in pain level or No management Left Footwear Regular Shoe Right Footwear Regular Shoe Pain Scale: 0-10 Numeric Is Patient Pain Free? Yes WC - Nurse 1 - General Ulcer Measurement Start: 02/16/22 09:27 Freq: Status: Active Protocol: Activity Type Activity Date Activity User E-sign Co-sign Detail Recorded Client Recorded Date Recorded By Document 02/16/22 09:28 KR [id number] 02/16/22 09:32 KR Document 02/23/22 09:34 KR [id number] 02/23/22 09:37 KR Document 03/09/22 09:25 KR [id number] 03/09/22 09:27 KR Document 03/16/22 11:34 KR [id number] 03/16/22 11:35 KR 02/16/22 02/23/22 03/09/22 09:28 09:34 09:25 Wound Center Nurse 1 #1 right upper back -Current Size (cm) - Length 0.4 0.5 0.3 -Current Size (cm) - Width 0.2 0.4 0.3 -Current Size (cm) - Depth 0.2 0.4 0.4 -Total Square Cm 0.08 0.20 0.09 -Undermining/Tunneling Starts (O'clock 7 ) -Undermining/Tunneling Ends (O'clock) 10 -Maximum Distance (cm) 0.2 -Undermining/Tunneling Starts #2 (O' 12 clock) -Undermining/Tunneling Ends #2 (O' 5 clock) -Maximum Distance #2 (cm) 0.2 -Exudate Amt Small Small Small -Exudate Type Serosanguineous Serosanguineous Serosanguineous -Wound Margin Distinct, Distinct, Distinct, Outline Outline Outline Attached Attached Attached -Granulation Amt Small (1-33%) Large (67-100%) Small (1-33%) -Granulation Quality [place] Pale Red -Necrosis Amt Small (1-33%) None Present (0 Medium (34-66%) %) -Necrotic Tissue Type Adherent Slough Adherent Slough -Texture (Valarie-wound Skin Appearance) Assessed, Assessed, Assessed, Scarring Scarring Scarring -Moisture (Valarie-wound Skin Appearance) No Abnormality, No Abnormality, No Abnormality, Assessed Assessed Assessed -Color (Valarie-wound Skin Appearance) No Abnormality, No Abnormality, No Abnormality, Assessed Assessed Assessed -Temperature (Valarie-wound Skin No Abnormality No Abnormality No Abnormality Appearance) (Pt Warm) (Pt Warm) (Pt Warm) -Tenderness on Palpation (Valarie-wound No No No Skin Appearance) -Ulcer Cleansing Rinsed/ Rinsed/ Rinsed/ Irrigated with Irrigated with Irrigated with Saline Saline Saline -Foul Odor after Cleansing No No No -Anesthetic Used 5% Lidocaine 4% Lidocaine 5% Lidocaine Gel Solution Gel 03/16/22 11:34 Wound Center Nurse 1 #1 right upper back -Current Size (cm) - Length 0.2 -Current Size (cm) - Width 0.3 -Current Size (cm) - Depth 0.2 -Total Square Cm 0.06 -Undermining/Tunneling Starts (O'clock ) -Undermining/Tunneling Ends (O'clock) -Maximum Distance (cm) -Undermining/Tunneling Starts #2 (O' clock) -Undermining/Tunneling Ends #2 (O' clock) -Maximum Distance #2 (cm) -Exudate Amt Small -Exudate Type Serosanguineous -Wound Margin Distinct, Outline Attached -Granulation Amt Small (1-33%) -Granulation Quality [place] -Necrosis Amt Small (1-33%) -Necrotic Tissue Type Adherent Slough -Texture (Valarie-wound Skin Appearance) Assessed, Scarring -Moisture (Valarie-wound Skin Appearance) No Abnormality, Assessed -Color (Valarie-wound Skin Appearance) No Abnormality, Assessed -Temperature (Valarie-wound Skin No Abnormality Appearance) (Pt Warm) -Tenderness on Palpation (Vaalrie-wound No Skin Appearance) -Ulcer Cleansing Rinsed/ Irrigated with Saline -Foul Odor after Cleansing No -Anesthetic Used 5% Lidocaine Gel WC - Nurse 2 - General Ulcer CM Notes Start: 02/16/22 09:27 Freq: Status: Active Protocol: Activity Type Activity Date Activity User E-sign Co-sign Detail Recorded Client Recorded Date Recorded By Document 02/16/22 09:56 PL [id number] 02/16/22 09:59 PL Document 02/23/22 09:51 MW [id number] 02/23/22 09:56 MW Document 03/09/22 09:41 MW [id number] 03/09/22 09:44 MW Document 03/16/22 11:50 MW [id number] 03/16/22 11:59 MW 02/16/22 02/23/22 03/09/22 09:56 09:51 09:41 Wound Center Nurse 2 #1 right upper back -Time 09:39 09:52 09:42 -Correct Patient Yes Yes Yes -Correct Side, Site, Position Yes Yes Yes -Correct Procedure Yes Yes Yes -Procedure Performed Yes Yes Yes -Type of Procedure Debridement Debridement Debridement -Clinical Debridement Subcutaneous Subcutaneous Subcutaneous -Tissue Removed Subcutaneous Subcutaneous Subcutaneous -Post Debridement (cm) - Length 0.6 0.6 0.4 -Post Debridement (cm) - Width 0.4 0.4 0.4 -Post Debridement (cm) - Depth 0.4 0.2 0.3 -Total Square (Post) (cm) 0.24 0.24 0.16 -Area of Debridement (cm) - Length 0.6 0.6 0.4 -Area of Debridement (cm) - Width 4 0.4 0.4 -Total Square (Area) (cm) 2.4 0.24 0.16 -Tunneling No No No -Undermining/Tunneling Yes No Yes -Undermining/Tunneling Starts (O'clock 12 6 ) -Undermining/Tunneling Ends (O'clock) 12 12 -Maximum Distance (cm) 0.3 0.2 -Circular Undermining Yes No No -Wound/Ulcer Outcome Not Healed Not Healed -Ulcer Cleansing Rinsed/ Rinsed/ Rinsed/ Irrigated with Irrigated with Irrigated with Saline Saline Saline -Foul Odor after Cleansing No No No -Bioengineered Tissue No No No -Bleeding Controlled with Pressure Pressure Pressure -Treatment Response Procedure Procedure Procedure Tolerated Well Tolerated Well Tolerated Well -Offloading No No -Debridement - Subq, 1st 20sq cm Yes Yes Yes Pain Scale: 0-10 Numeric Is Patient Pain Free? Yes Yes Yes 03/16/22 11:50 Wound Center Nurse 2 #1 right upper back -Time 11:51 -Correct Patient Yes -Correct Side, Site, Position Yes -Correct Procedure Yes -Procedure Performed Yes -Type of Procedure Debridement -Clinical Debridement Subcutaneous -Tissue Removed Subcutaneous -Post Debridement (cm) - Length 0.4 -Post Debridement (cm) - Width 0.3 -Post Debridement (cm) - Depth 0.3 -Total Square (Post) (cm) 0.12 -Area of Debridement (cm) - Length 0.4 -Area of Debridement (cm) - Width 0.3 -Total Square (Area) (cm) 0.12 -Tunneling No -Undermining/Tunneling Yes -Undermining/Tunneling Starts (O'clock 6 ) -Undermining/Tunneling Ends (O'clock) 12 -Maximum Distance (cm) 0.2 -Circular Undermining No -Wound/Ulcer Outcome Not Healed -Ulcer Cleansing Rinsed/ Irrigated with Saline -Foul Odor after Cleansing No -Bioengineered Tissue No -Bleeding Controlled with Pressure -Treatment Response Procedure Tolerated Well -Offloading No -Debridement - Subq, 1st 20sq cm Yes Pain Scale: 0-10 Numeric Is Patient Pain Free? Yes - Nurse 3 - General Ulcer D/C NN Start: 02/16/22 09:27 Freq: Status: Active Protocol: Activity Type Activity Date Activity User E-sign Co-sign Detail Recorded Client Recorded Date Recorded By Document 02/16/22 10:43 KR [id number] 02/16/22 10:44 KR Document 02/23/22 09:56 MW [id number] 02/23/22 09:57 MW Document 03/09/22 09:44 MW [id number] 03/09/22 09:45 MW Document 03/16/22 11:59 MW [id number] 03/16/22 11:59 MW 02/16/22 02/23/22 03/09/22 10:43 09:56 09:44 Wound Care Nurse 3 #1 right upper back -Ulcer Cleansing Rinsed/ Rinsed/ Rinsed/ Irrigated with Irrigated with Irrigated with Saline Saline Saline -Foul Odor after Cleansing No No -Negative Pressure Wound Therapy N/A N/A -Primary Dressing Applied Mepilex Border, Promogran Promogran Nugauze, Iodoform -Primary Dressing Covered/Secured with Dry Gauze, Dry Gauze, Secured with Secured with Tape Tape -Mepilex Border 1 -Nugauze, Iodoform 1/4 1 -Promogran 1 1 Treatment Response Procedure Procedure Tolerated Well Tolerated Well Pain Scale: 0-10 Numeric Is Patient Pain Free? Yes Yes Yes Teaching: Wound Center Dressing Your Wound -Person Taught Patient Patient,Family -Teaching Method Discussion, Discussion Demonstration -Response to teaching Verbalize Verbalize understanding understanding WC - Visit Discharge Discharge Condition Stable Stable Ambulatory Status Ambulatory Ambulatory Transportation Private Auto Private Auto Accompanied by self family Medication Reconcilliation completed & No No provided to patient/care provider Clinical Summary of Care Provided Yes Yes 03/16/22 11:59 Wound Care Nurse 3 #1 right upper back -Ulcer Cleansing Rinsed/ Irrigated with Saline -Foul Odor after Cleansing No -Negative Pressure Wound Therapy N/A -Primary Dressing Applied NonAdherent Contact Layer, Promogran -Primary Dressing Covered/Secured with Dry Gauze, Secured with Tape -Mepilex Border -Nugauze, Iodoform 1/4 -Promogran 1 Treatment Response Procedure Tolerated Well Pain Scale: 0-10 Numeric Is Patient Pain Free? Yes Teaching: Wound Center Dressing Your Wound -Person Taught Patient,Family -Teaching Method Discussion, Demonstration -Response to teaching Verbalize understanding WC - Visit Discharge Discharge Condition Stable Ambulatory Status Ambulatory Transportation Private Auto Accompanied by self Medication Reconcilliation completed & No provided to patient/care provider Clinical Summary of Care Provided Yes Additional Wound Wound debrided: Right upper back post surgical nonhealing wound Type of Debridement: Excisional debridement Anesthesia Used: 5% Lidocaine Gel Depth: in the subcutaneous layer Percentage of wound debrided: 100 Instrument Used: 3mm curette Tissue Removed: Fibrin Severity: Fat Layer Exposed Amount of bleeding with debridement: Mild Patient tolerated procedure: Patient tolerated procedure well Assessment/Plan Assessment/Plan (1) Heart failure with reduced ejection fraction: CODE(S): I50.20 - Unspecified systolic (congestive) heart failure (2) Ventricular fibrillation: CODE(S): I49.01 - Ventricular fibrillation (3) Surgical wound, non healing: CODE(S): T81.89XA - Other complications of procedures, not elsewhere classified, initial encounter PLAN: Plan Wash area with antibacterial soap and pack with Promogran moistened cover with gauze dressing and tape every day We will call with culture results and if necessary will start her on antibiotics Follow-up in 1 week
== END 2022-03-16 23:59 | disposition home or self-care (01) ==
LOC: WC 10:00
PROVIDERS: PCP Internal Medicine; Visit Provider Nurse Practitioner
DX: T81.89XA Other complications of procedures, not elsewhere classified, initial encounter (principal); C34.90 Malignant neoplasm of unspecified part of unspecified bronchus or lung; J44.9 Chronic obstructive pulmonary disease, unspecified; I50.20 Unspecified systolic (congestive) heart failure; I49.01 Ventricular fibrillation; Y83.8 Other surgical procedures as the cause of abnormal reaction of the patient, or of later complication, without mention of misadventure at the time of the procedure
CPT/HCPCS: 11042; 87070; 87075; 87077; 87186; 87205

== ENCOUNTER 2022-04-05 16:38 | Inpatient (IN) | payer MEDICARE, OTHER, SELFPAY ==
[2017-10-05 11:04] VITALS: BMI 28.2
[2022-04-05] VITALS (9 sets, daily range): BP systolic 76–100; BP diastolic 50–69; PULSE 89–117; RESP 16–23; TEMP 36.7–36.8; O2SAT 91–100; BMI 18.1; BMI 17.2
--- NOTE | 2022-04-05 17:28 | ED.VIS.DYS ---
HPI History of Present Illness Chief Complaint: Shortness of Breath Informant: patient Onset/Context/Timing Onset: Weeks (3) Context: gradual Timing: Continuous Quality: Positive for Dyspnea on exertion Worsened by: Exertion Relieved by: Rest Associated Symptoms cough and white sputum; Negative for rhinorrhea, post nasal drip, ear pain, fever, sore throat, chills or sweats Chest Pain: Positive for None Narrative Narrative: Patient presents with shortness of breath that has been getting worse over the last 3 weeks. Patient states it is gradually gotten worse. Patient states it is worse with any exertion. Patient states she can only walk a few steps before she is out of breath. Patient states he gets better with rest. Patient admits to a cough with some white sputum. Patient denies any fevers or chills. Patient denies any sore throat, rhinorrhea, or ear pain. Patient denies any chest pain. Patient denies any nausea or vomiting. PE Risk Factors: Positive for Cancer; Negative for Prior DVT or PE, Recent immobilization, Recent surgery or Recent travel [facility] Medical History Atherosclerosis of coronary artery bypass graft without angina pectoris Chest pain, unspecified COPD (chronic obstructive pulmonary disease) Diabetes mellitus Essential hypertension History of left heart catheterization (LHC) (~04/21/21) Hyperlipemia Kidney stone Liver cancer Long-term use of high-risk medication Lung cancer Lung mass Old myocardial infarction Primary cancer of right lower lobe of lung SOB (shortness of breath) Stage 3 severe COPD by GOLD classification Tobacco abuse Ventricular fibrillation Home Medications omeprazole 40 mg capsule,delayed release 40 mg PO DAILY 08/10/15 [History Last Taken Unknown] rosuvastatin 40 mg tablet 40 mg PO DAILY 08/10/15 [History Last Taken Unknown] budesonide-formoterol HFA 160 mcg-4.5 mcg/actuation aerosol inhaler (Symbicort) 2 inh inhalation Q12H 06/26/17 [History Last Taken Unknown] acetaminophen 500 mg tablet (Tylenol Extra Strength) 500 mg PO Q8H PRN 10/14/20 [History Last Taken Unknown] albuterol sulfate 90 mcg/actuation aerosol inhaler (ProAir HFA) 2 puff inhalation Q6H PRN Shortness Of Breath 10/14/20 [History Last Taken Unknown] folic acid 1 mg tablet 1 mg PO DAILY 10/14/20 [History Last Taken Unknown] apixaban 5 mg tablet 5 mg PO BID 04/14/21 [History Last Taken Unknown] fluticasone propionate 50 mcg/actuation nasal spray,suspension (Allergy Relief (fluticasone)) 2 spray intranasal DAILY PRN other 04/29/21 [History Last Taken Unknown] gabapentin 300 mg capsule 300 mg PO QHS PRN Pain, Mild 04/29/21 [History Last Taken Unknown] clopidogrel 75 mg tablet (Plavix) 75 mg PO DAILY #90 tabs 07/12/21 [Rx Last Taken Unknown] metoprolol succinate 25 mg tablet,extended release 24 hr 25 mg PO DAILY #90 tabs 10/08/21 [Rx Last Taken Unknown] magnesium oxide 400 mg (241.3 mg magnesium) tablet 400 mg PO DAILY 10/26/21 [History Last Taken Unknown] potassium chloride 20 mEq tablet,extended release 20 meq PO DAILY 10/26/21 [History Last Taken Unknown] spironolactone 25 mg tablet 25 mg PO Q OTHER DAY #45 tabs 10/26/21 [Rx Last Taken Unknown] sacubitril 49 mg-valsartan 51 mg tablet (Entresto) 1 tab PO BID #180 tabs 11/22/21 [Rx Last Taken Unknown] methadone 5 mg tablet 5 mg PO BID 04/05/22 [History Last Taken Unknown] Allergy/AdvReac Type Severity Reaction Status Date / Time adhesive tape Allergy Severe welts, Verified 04/05/22 16:39 rash bee venom protein (honey bee) Allergy Anaphylaxis Verified 04/05/22 16:39 codeine Allergy Itching Verified 04/05/22 16:39 Family History Brother Myocardial infarction Diabetes CAD (coronary artery disease) Hx of CABG Sister Diabetes CAD (coronary artery disease) Brother CAD (coronary artery disease) Hx of CABG Diabetes Brother CAD (coronary artery disease) Hx of CABG Surgical History femoral artery repair History of cholecystectomy History of hysterectomy Presence of aortocoronary bypass graft (~10/2003) Social History Smoking Status: Current every day smoker tobacco type: cigarettes Electronic Cigarette Use: not used second hand exposure: Yes alcohol intake: current alcohol intake frequency: a few times a week Alcohol type: wine details: occasional substance use type: does not use caffeine: Yes Type: carbonated beverages Number of servings: 3 ROS ROS ED Constitutional Constitutional ED: Denies chills or fever(s) Eyes Eyes: Denies blurry vision or change in vision ENT ENT ED: Denies rhinorrhea or sore throat Cardiovascular Cardiovascular: Denies chest pain or palpitations Respiratory/Chest Respiratory/Chest: Reports cough and dyspnea Gastrointestinal Gastrointestinal: Denies nausea or vomiting Genitourinary Genitourinary ED: Denies dysuria or hematuria Musculoskeletal Musculoskeletal: Denies back pain or neck pain Integumentary Denies abscess or rash Neurologic Neurologic: Denies headache(s) or weakness Allergic/Immunologic Allergic/Immunologic ED: Denies mouth swelling or urticaria EXAM Physical Exam Const Vital Signs: 04/05/22 16:39 04/05/22 17:08 04/05/22 17:14 Temperature 98.3 F Temperature Source Temporal Pulse Rate 117 H 114 H Respiratory Rate 23 H Respiratory Effort Short of Breath Respiratory Pattern Tachypnea Blood Pressure 85/69 L 100/63 Blood Pressure Mean 74 75 Pulse Ox 97 95 Oxygen Delivery Method Room Air Room Air Room Air 04/05/22 17:47 04/05/22 17:47 04/05/22 18:29 Temperature Temperature Source Pulse Rate 110 H 103 H Respiratory Rate 22 H 20 H Respiratory Effort Respiratory Pattern Blood Pressure 79/60 L Blood Pressure Mean 66 Pulse Ox 96 96 Oxygen Delivery Method Room Air Room Air 04/05/22 21:32 Temperature Temperature Source Pulse Rate 99 Respiratory Rate 19 H Respiratory Effort Respiratory Pattern Blood Pressure 80/62 L Blood Pressure Mean 68 Pulse Ox 94 Oxygen Delivery Method Room Air Positive well nourished and well developed General Appearance ED: well developed and NAD Neck supple, no meningeal signs and no JVD Resp Auscultation: rhonchi and diminished lung sounds Cardio regular rhythm Rate: tachycardic GI non-tender and non-distended Palpation: soft Extremity normal to inspection General Extremety ED: Negative for edema or tenderness General Extremity: Negative for edema Neuro oriented x3, CN's II-XII intact bilaterally and no sensory deficits noted Aashish Coma Scale: document GCS findings Spontaneous Obeys Commands Oriented 15 Sensorium / Orientation: alert Speech: speech normal Motor Exam: strength 5/5 throughout Psych mental status grossly normal MDM MDM MDM Narrative Medical decision making narrative: Patient was given a DuoNeb aerosol here. EKG was obtained. On my interpretation, it shows a sinus tachycardia with a rate of 110. There are nonspecific ST-T wave changes. CO interval, QRS interval, and QTc intervals are normal. Jackson is normal. CBC shows a white blood cell count of 2.6. Hemoglobin was 11.6 and hematocrit was 36.0. Basic metabolic profile was was normal. Lactate was normal. CTA of the chest was obtained. There is no evidence of pulmonary embolism or aortic dissection. There is subsegmental atelectasis in both lower lobes. This was interpreted by the radiologist and reviewed by myself. COVID-19 rapid antigen was obtained and was negative. Influenza A and influenza B swabs were obtained and were negative. Patient was advised of her findings. Patient was ambulated and got short of breath with ambulation. Because of this, case was discussed with the hospitalist. She will admit the patient to her service for observation. Patient understood and was agreeable with the plan. All questions were answered. Lab Data Attestation: I reviewed the patient's lab results. Labs: Laboratory Results - last 24 hr 04/05/22 04/05/22 04/05/22 17:35 17:35 17:45 WBC 2.6 L RBC 3.79 L Hgb 11.6 L Hct 36.0 L MCV 95.0 MCH 30.6 MCHC 32.2 RDW Std Deviation 56.4 H RDW Coeff of Janes 17.1 H Plt Count 218 MPV 10.9 Immature Gran % (Auto) 0.400 Neut % (Auto) 85.3 H Lymph % (Auto) 12.3 L [place] % (Auto) 0.8 Eos % (Auto) 1.2 Baso % (Auto) 0.0 Absolute Neuts (auto) 2.2 Absolute Lymphs (auto) 0.32 L Nucleated RBC % 0 Differential Comment SCANNED Diff Path Review May foll Sodium 132 L Potassium 4.9 Chloride 99 Carbon Dioxide 27.0 Anion Gap 6 BUN 14 Creatinine 0.70 Estim Creat Clear Calc 35.99 Est GFR (MDRD) Af Amer 106 Est GFR (MDRD) Non-Af 87 BUN/Creatinine Ratio 19.9 Glucose 131 H Lactic Acid 1.5 Calcium 9.6 Troponin I High Sens 18 Radiography Diagnostic Testing: Clinical Impression(s) from Imaging Studies Chest CTA 04/05/22 17:32 IMPRESSION: ASHD and subsegmental atelectasis in both lower lobes. No evidence for pulmonary embolus Electronically Signed: Jose Hemphill MD at 18:57 EDT Reading Location ID and State: [facility] / [place] , Service support , EKG Initial EKG: Attestation: I personally reviewed and interpreted this EKG as follows: Interpretation: Sinus Tachycardia (110) and Non-Specific ST Changes Prior EKG tracings: available for review Prior: Unchanged (08/10/2015) Discharge Plan Triage Chief Complaint: Shortness of Breath ED Provider: Dexter Plummer Dx/Rx/DC Orders Clinical Impression: SOB (shortness of breath), COPD (chronic obstructive pulmonary disease), Hypotension Prescriptions: No Action budesonide-formoterol [Symbicort] 160-4.5 mcg/actuation HFA aerosol inhaler 2 inh INHALATION Q12H albuterol sulfate [ProAir HFA] 90 mcg/actuation HFA aerosol inhaler 2 puff INHALATION Q6H PRN (Reason: Shortness Of Breath) folic acid 1 mg tablet 1 mg PO DAILY acetaminophen [Tylenol Extra Strength] 500 mg tablet 500 mg PO Q8H PRN gabapentin 300 mg capsule 300 mg PO QHS PRN (Reason: Pain, Mild) fluticasone propionate [Allergy Relief (fluticasone)] 50 mcg/actuation spray,suspension 2 spray INTRANASAL DAILY PRN (Reason: other) Rx Instructions: administer into each nostril potassium chloride 20 mEq tablet extended release 20 meq PO DAILY apixaban 5 mg tablet 5 mg PO BID magnesium oxide 400 mg (241.3 mg magnesium) tablet 400 mg PO DAILY spironolactone 25 mg tablet 25 mg PO Q OTHER DAY Qty: 45 3RF omeprazole 40 MG capsule 40 mg PO DAILY rosuvastatin 40 MG tablet 40 mg PO DAILY methadone 5 mg tablet 5 mg PO BID clopidogrel [Plavix] 75 mg tablet 75 mg PO DAILY Qty: 90 3RF metoprolol succinate 25 mg tablet extended release 24 hr 25 mg PO DAILY Qty: 90 3RF Entresto 49-51 mg tablet 1 tab PO BID Qty: 180 3RF Primary Care Provider: Kaylee Loco Referrals: Kaylee Loco MD [Primary Care Provider] - Disposition Disposition: Acute Care Hospital [facility]
--- NOTE | 2022-04-05 17:32 | CT_ITS ---
STUDY: CTA CHEST REASON FOR EXAM: Female, 71 years old. Dyspnea RADIATION DOSAGE (If Supplied By Facility): CTDIvol = ( 8.09 ) mGy, DLP = ( 144.20 ) mGycm TECHNIQUE: The examination was performed with the intravenous administration of IV 75mL [id number]. Post-processing of the angiographic images was performed, with multiplanar reformation and 3D reconstruction. Individualized dose optimization techniques were used for this CT. COMPARISON: None. FINDINGS: Normal enhancement of the main pulmonary artery and right and left pulmonary arteries. Normal enhancement of the bilateral peripheral pulmonary arteries. There is no demonstrated pulmonary embolism. Atherosclerotic changes of the aorta without evidence for aneurysm There is no demonstrated aortic dissection. Heart size is normal. There is multi focal coronary artery calcification. Normal mediastinum. Normal hilar regions. Normal visualized trachea and bronchi. The lungs are well expanded. There is subsegmental atelectasis in both lower lobes Normal pleura. Postop change status post median sternotomy CABG. Dorsal spine demonstrates degenerative change and multiple chronic compression fractures Large cyst noted in the right lobe of the liver CT/CTA Chest W/WO Contrast IMPRESSION: ASHD and subsegmental atelectasis in both lower lobes. No evidence for pulmonary embolus Electronically Signed: Jose Hemphill MD at 18:57 EDT ,
[2022-04-05] MEDS: Ipratropium/Albuterol Sulfate 3 ML AMPUL.NEB INHALATION (17:37)
[2022-04-05 18:01] LABS: Absolute Lymphocyte Count 0.32 X10^3/uL (0.83-4.51); Absolute Neutrophil Count 2.2 X10^3/uL (2.0-7.7); Eosinophil# 0.03 X10^3/uL; Eosinophils% 1.2 % (0-5); Hemoglobin 11.6 g/dL (12.0-15.0); Lymphocyte # 0.32 X10^3/ul (0.83-4.51); Lymphocyte % 12.3 % (19-41); Mean Corp Hgb Conc 32.2 g/dL (32-36); Mean Corpuscular Hgb 30.6 pg (27.0-32.0); Mean Platelet Vol. 10.9 fl (6.2-12.0); Monocyte# 0.02 X10^3/uL; Monocyte% 0.8 % (0-10); NRBC Flagged by Analyzer 0 % (0-5); Neutrophil # 2.22 X10^3/uL (2.7-7.7); Neutrophil % 85.3 % (47-70); POSITIVE DIFFERENTIAL YES; Platelet Count 218 K/mm3 (150-450); RBC Distribution Width CV 17.1 % (11.6-14.6); RBC Distribution Width SD 56.4 fl (35.1-43.9); Red Blood Count 3.79 M/mm3 (4.2-5.4); White Blood Count 2.6 K/mm3 (4.4-11.0)
[2022-04-05 18:16] LABS: Differential Indicated SCAN CRITERIA MET
[2022-04-05 18:25] LABS: Anion Gap 6 (5-15); BUN 14 mg/dL (7-18); BUN/Creat Ratio 19.9 RATIO (10-20); Calcium,Total 9.6 mg/dL (8.5-10.1); Chloride 99 mmol/L (98-107); EST Glomerular Filtration Rate 87 mL/min (>60); Est Glom Filt Rate - Afr Amer 106 mL/min (>60); Estimated Creatinine Clearance 35.99 ml/min; Glucose 131 mg/dL (74-106); Potassium 4.9 mmol/L (3.5-5.1); Sodium Level 132 mmol/L (136-145); Troponin-I HS 18 pg/mL (3.0-54.0)
[2022-04-05 19:02] LABS: Lactic Acid 1.5 mmol/L (0.4-1.9)
[2022-04-05 19:05] LABS: Differential Comment SCANNED
[2022-04-05 21:59] LABS: Troponin-I HS 19 pg/mL (3.0-54.0)
--- NOTE | 2022-04-05 22:03 | PCM.HP.STD ---
HPI - General General Date of Admission: 04/05/22 Date of Service: 04/05/22 Chief Complaint: Dyspnea, exertional. HPI Narrative The patient is a 71 y/o F w/ PMHx: COPD, CAD s/p CABG with history 04/21/2021 EF at that time 25% with hypokinetic basal inferior wall and inferior septum with catheterization demonstrating severe CAD including chronic total occlusion of all 3 major epicardial vessels, 2 of 3 bypass grafts patent with episode of V. fib during that time with cardioversion performed with CT surgery noting patient was poor candidate for surgical intervention secondary to chemotherapy with follow-up echocardiogram 02/20/2022 with EF improvement to 35% with recommended prophylactic ICD however patient deferred secondary to concerns for healing, PAD s/p femoral artery repair, HTN, HLD, Lung CA (primary RLL) with ongoing chemotherapy following with Dr. Leal recently started on a new agent over the last 3 weeks, Diabetes mellitus type II, Chronic Systolic CHF, Tobacco use, Chronic open wound R paraspinous region mid back who presents to the [facility] ED on 04/05/22 with history of shortness of breath, worse with exertion ongoing for the last 3 weeks progressively more notable reporting that she can only take a few steps before she is out of breath with cough with occasional white sputum however no recent fevers or chills nor any URI type symptoms however given not improving prompted ED evaluation. She notes being very fatigued and having no energy. She denies specifically any chest pain but does confirm that the dyspnea is primarily exertional. Reviewed case and medications with Dr. Leal to be cautious and per discussion the current chemotherapeutic agent she is on is not associated with cardiomyopathy. Work-up in the ED included T98.3, heart initially 117 with most recent repeat 103, BP initially 85/69 with a temporary increase to 100/63 with most recent to 79/60, respiratory rate 23, 96 to 97% on room air, CBC with WC 2.6, hemoglobin 0.6, MCV 95, platelet 218 with lymphopenia, BMP with sodium 132, glucose 131, lactic acid 1.5, troponin 18, rapid COVID antigen negative, CTPA with subsegmental atelectasis in both lower lobes otherwise no acute cardiopulmonary findings and no evidence of pulmonary emboli, EKG ST without acute evidence of ischemia. [facility] Medical History Atherosclerosis of coronary artery bypass graft without angina pectoris Chest pain, unspecified COPD (chronic obstructive pulmonary disease) Diabetes mellitus Essential hypertension History of left heart catheterization (LHC) (~04/21/21) Hyperlipemia Kidney stone Liver cancer Long-term use of high-risk medication Lung cancer Lung mass Old myocardial infarction Primary cancer of right lower lobe of lung SOB (shortness of breath) Stage 3 severe COPD by GOLD classification Tobacco abuse Ventricular fibrillation Home Medications omeprazole 40 mg capsule,delayed release 40 mg PO DAILY 08/10/15 [History Last Taken Unknown] rosuvastatin 40 mg tablet 40 mg PO DAILY 08/10/15 [History Last Taken Unknown] budesonide-formoterol HFA 160 mcg-4.5 mcg/actuation aerosol inhaler (Symbicort) 2 inh inhalation Q12H 06/26/17 [History Last Taken Unknown] acetaminophen 500 mg tablet (Tylenol Extra Strength) 500 mg PO Q8H PRN 10/14/20 [History Last Taken Unknown] albuterol sulfate 90 mcg/actuation aerosol inhaler (ProAir HFA) 2 puff inhalation Q6H PRN Shortness Of Breath 10/14/20 [History Last Taken Unknown] folic acid 1 mg tablet 1 mg PO DAILY 10/14/20 [History Last Taken Unknown] apixaban 5 mg tablet 5 mg PO BID 04/14/21 [History Last Taken Unknown] fluticasone propionate 50 mcg/actuation nasal spray,suspension (Allergy Relief (fluticasone)) 2 spray intranasal DAILY PRN other 04/29/21 [History Last Taken Unknown] gabapentin 300 mg capsule 300 mg PO QHS PRN Pain, Mild 04/29/21 [History Last Taken Unknown] clopidogrel 75 mg tablet (Plavix) 75 mg PO DAILY #90 tabs 07/12/21 [Rx Last Taken Unknown] metoprolol succinate 25 mg tablet,extended release 24 hr 25 mg PO DAILY #90 tabs 10/08/21 [Rx Last Taken Unknown] magnesium oxide 400 mg (241.3 mg magnesium) tablet 400 mg PO DAILY 10/26/21 [History Last Taken Unknown] potassium chloride 20 mEq tablet,extended release 20 meq PO DAILY 10/26/21 [History Last Taken Unknown] spironolactone 25 mg tablet 25 mg PO Q OTHER DAY #45 tabs 10/26/21 [Rx Last Taken Unknown] sacubitril 49 mg-valsartan 51 mg tablet (Entresto) 1 tab PO BID #180 tabs 11/22/21 [Rx Last Taken Unknown] methadone 5 mg tablet 5 mg PO BID 04/05/22 [History Last Taken Unknown] Allergy/AdvReac Type Severity Reaction Status Date / Time adhesive tape Allergy Severe welts, Verified 04/05/22 16:39 rash bee venom protein (honey bee) Allergy Anaphylaxis Verified 04/05/22 16:39 codeine Allergy Itching Verified 04/05/22 16:39 Family History (Reviewed 02/09/22 @ 11:07 by Miriam Kim SHOP SERVICE TECHNICIAN, SHOP SERVICE TECHNICIAN-C) Brother Myocardial infarction Diabetes CAD (coronary artery disease) Hx of CABG Sister Diabetes CAD (coronary artery disease) Brother CAD (coronary artery disease) Hx of CABG Diabetes Brother CAD (coronary artery disease) Hx of CABG Surgical History femoral artery repair History of cholecystectomy History of hysterectomy Presence of aortocoronary bypass graft (~10/2003) Social History (Updated 04/05/22 @ 22:[address] Kathleen Baker MD) household members: none Smoking Status: Current every day smoker tobacco type: cigarettes Electronic Cigarette Use: not used second hand exposure: Yes alcohol intake: current alcohol intake frequency: a few times a week Alcohol type: wine details: occasional substance use type: does not use caffeine: Yes Type: carbonated beverages Number of servings: 3 ROS ROS Narrative Admission Review of Systems: CONSTITUTIONAL: No weight loss, fever, chills, + weakness or fatigue. HEENT: Eyes: No visual loss, blurred vision, double vision or yellow sclerae. Ears, Nose, Throat: No hearing loss, sneezing, congestion, runny nose or sore throat. SKIN: No rash or itching, lesions, wounds. CARDIOVASCULAR: No chest pain, chest pressure or chest discomfort, palpitations, edema, orthopnea, syncopal events. RESPIRATORY: + shortness of breath, cough without marked sputum, occasional wheezing, No hemoptysis. GASTROINTESTINAL: + anorexia, No nausea, vomiting or diarrhea, abdominal pain, melena, BRBPR. GENITOURINARY: No dysuria, frequency, urgency or retention. NEUROLOGICAL: No headache, dizziness, syncope, paralysis, ataxia, numbness or tingling in the extremities, focal weakness, change in bowel or bladder control, seizure. MUSCULOSKELETAL: + muscle, back pain, joint pain or stiffness. HEMATOLOGIC: + anemia, bleeding or bruising. LYMPHATICS: No enlarged nodes. No history of splenectomy. PSYCHIATRIC: No history of depression or anxiety. ENDOCRINOLOGIC: No reports of sweating, cold or heat intolerance. No polyuria or polydipsia. ALLERGIES: + history of rhinitis. Vital Signs Vital Signs Vital Signs: 04/05/22 16:39 04/05/22 17:08 04/05/22 17:14 Temperature 98.3 F Temperature Source Temporal Pulse Rate 117 H 114 H Respiratory Rate 23 H Respiratory Effort Short of Breath Respiratory Pattern Tachypnea Blood Pressure 85/69 L 100/63 Blood Pressure Mean 74 75 Pulse Ox 97 95 Oxygen Delivery Method Room Air Room Air Room Air 04/05/22 17:47 04/05/22 17:47 04/05/22 18:29 Temperature Temperature Source Pulse Rate 110 H 103 H Respiratory Rate 22 H 20 H Respiratory Effort Respiratory Pattern Blood Pressure 79/60 L Blood Pressure Mean 66 Pulse Ox 96 96 Oxygen Delivery Method Room Air Room Air 04/05/22 21:32 04/05/22 22:01 Temperature 98.1 F Temperature Source Temporal Pulse Rate 99 102 H Respiratory Rate 19 H 19 H Respiratory Effort Respiratory Pattern Blood Pressure 80/62 L 80/62 L Blood Pressure Mean 68 68 Pulse Ox 94 94 Oxygen Delivery Method Room Air Room Air Weight Weight: 96 lb Body Mass Index (BMI) 18.1 Physical Exam Narrative Physical Examination: General: Awake, alert, oriented x 3 and cooperative, seated upright in the ED bed, fatigued appearing, no acute distress. Skin: Normal color, normal turgor, no icterus, no cyanosis except occasional staged ecchymoses. HEENT: AT/NC, EOMI, PERRLA, dry MM, no carotid bruits or JVD noted. Lungs: Diminished, greater bases, appropriate effort, no evidence of any distress, occasional end expiratory wheeze, no rhonchi or rales. Heart: Mildly tachycardic with regular rhythm; no gallop, rub audible. Abdomen: Soft, thin habitus, NTTP, ND, mildly hyperactive BS, no HSM. Extremities: No cyanosis, clubbing, or edema. Neurological: Patient awake, alert, oriented as noted, cognitive function intact; pupils equally reactive to light and accommodation, cranial nerves II-XII grossly normal, moving all 4 extremities, no focal deficits, strength moderately to severely global decreased. Psychiatric: Affect appears fatigued otherwise normal, no acute evidence of depressive or anxiety feelings. Results Lab / Micro Data Result Diagrams: 04/05/22 17:35 04/05/22 17:35 Labs: Laboratory Results - last 24 hr 04/05/22 17:35: WBC 2.6 L, RBC 3.79 L, Hgb 11.6 L, Hct 36.0 L, MCV 95.0, MCH 30.6, MCHC 32.2, RDW Std Deviation 56.4 H, RDW Coeff of Janes 17.1 H, Plt Count 218, MPV 10.9, Immature Gran % (Auto) 0.400, Neut % (Auto) 85.3 H, Lymph % (Auto) 12.3 L, [place] % (Auto) 0.8, Eos % (Auto) 1.2, Baso % (Auto) 0.0, Absolute Neuts (auto) 2.2, Absolute Lymphs (auto) 0.32 L, Nucleated RBC % 0, Differential Comment SCANNED, Diff Path Review November foll 04/05/22 17:35: Sodium 132 L, Potassium 4.9, Chloride 99, Carbon Dioxide 27.0, Anion Gap 6, BUN 14, Creatinine 0.70, Estim Creat Clear Calc 35.99, Est GFR (MDRD) Af Amer 106, Est GFR (MDRD) Non-Af 87, BUN/Creatinine Ratio 19.9, Glucose 131 H, Calcium 9.6, Troponin I High Sens 18 04/05/22 17:45: Lactic Acid 1.5 04/05/22 21:30: Troponin I High Sens 19 Micro: Microbiology 04/05/22 17:35 Nasal Secretion SARS-CoV-2 & FLU Antigen (Rapid) - Final Radiology Impression Chest CTA 04/05/22 17:32 IMPRESSION: ASHD and subsegmental atelectasis in both lower lobes. No evidence for pulmonary embolus Electronically Signed: Jose Hemphill MD at 18:57 EDT , Assessment & Plan Assessment/Plan (1) SOB (shortness of breath): PLAN: Plan The patient is a 71 y/o F w/ PMHx: COPD, CAD s/p CABG with history 04/21/2021 EF at that time 25% with hypokinetic basal inferior wall and inferior septum with catheterization demonstrating severe CAD including chronic total occlusion of all 3 major epicardial vessels, 2 of 3 bypass grafts patent with episode of V. fib during that time with cardioversion performed with CT surgery noting patient was poor candidate for surgical intervention secondary to chemotherapy with follow-up echocardiogram 02/20/2022 with EF improvement to 35% with recommended prophylactic ICD however patient deferred secondary to concerns for healing, PAD s/p femoral artery repair, HTN, HLD, Lung CA (primary RLL) with ongoing chemotherapy following with Dr. Leal recently started on a new agent over the last 3 weeks, Diabetes mellitus type II, Chronic Systolic CHF, Tobacco use, Chronic open wound R paraspinous region mid back who presents to the [facility] ED on 04/05/22 with history of shortness of breath, worse with exertion ongoing for the last 3 weeks progressively more notable reporting that she can only take a few steps before she is out of breath with cough with occasional white sputum however no recent fevers or chills nor any URI type symptoms however given not improving prompted ED evaluation. #1. Exertional dyspnea, possible anginal equivalent: EKG in ED with sinus rhythm with no acute evidence of ischemia, CTPA with subsegmental atelectasis in both lower lobes otherwise no acute evidence of cardiopulmonary findings or PE, initial trop 18. Will admit to PCU, place on a monitored bed to assure no acute myocardial infarction with serial cardiac enzymes and EKGs. Given recent echocardiogram 01/2022 and her current chemotherapeutic agent she has been on is not associate with cardiomyopathy will defer repeat. If repeat serial cardiac enzymes and EKGs remain unremarkable will pursue a.m. cardiac stress testing given concern this may be an anginal equivalent. #2. Hypotension, suspect hypovolemic: Patient with poor oral intake, minimal appetite, continue to very judiciously hydrate, monitor I's and O's and weights given reduced EF with underlying chronic systolic CHF, hold hypertensive regimen and add back once appropriate BP #3. CAD: Patient s/p CABG with CROWLEY to LAD, SVG to posterior lateral LT vent branch to RCA, and SVG to OM1 in October 2003, recent evaluation for chest pain 04/21/2021 with catheterization demonstrating severe CAD including chronic total occlusion of all 3 major epicardial vessels, 2 of 3 bypass grafts, EF at that time 25% with hypokinetic basal inferior wall and inferior septum with improvement to 45% on most recent 01/2022 repeat ECHO, will continue apixaban, Plavix, statin, metoprolol if blood pressure rales, temporarily holding Entresto given low blood pressures noted. #4. Chronic Systolic CHF: Appears compensated, 02/02/2022 echocardiogram with mild segmental systolic dysfunction, EF 45%, trivial TVI, RVSP 31 mmHg with inability to assess diastolic dysfunction, improved from prior 04/21/2021 echocardiogram with EF at that time 25%, will continue judicious hydration given decreased blood pressure, will continue Plavix, Eliquis, metoprolol as blood pressure rales, statin therapy, temporarily holding spironolactone and Entresto, monitor weight and I&Os given judicious hydration. #5. Lung CA (primary RLL): Patient with ongoing chemotherapy following with Dr. Leal recently started on a new agent over the last 3 weeks with incidental onset of her dyspnea symptoms starting with this new agent however per discussion with Dr. Leal the age and she is currently on is not associated with any cardiomyopathy therefore repeat echocardiogram deferred as patient has had improvement of her EF actually with now per her discussion deferral of planned AICD, will obtain magnesium and phosphorus levels with repletion as needed, from discussions with oncology this is a fourth line agent and likely if this is unsuccessful there is noted intention to discuss transition to possible hospice. #6. Chronic open wound R paraspinous region mid back: From review of most recent wound care notes 03/30/2022 patient with history of biopsy secondary lump on her back removed in June 2021 however was noted to never heal with undermining improvement with some slough of the wound base with continued usage at the wound care center of Promogran and antibiotic therapies with recommended antibacterial soap with packing with Adina moistened covered with gauze dressing daily with recent 03/30/2022 initiation of doxycycline twice daily x14 days with 1 week follow-up. Will continue dressing changes. #7. Chronic COPD: We will hold home inhalers and transition in the interim to ATC budesonide therapy given mild tachycardia upon presentation, PRN albuterol, HOB, IS parameters. #8. Hypertension: Holding home regimen given low BP upon presentation with patient admission of poor oral intake, continue very judicious hydration given reduced EF, add back regimen once appropriate. #9. Hyperlipidemia: Continue home statin regimen. AM FLP. #10. PAD s/p femoral artery repair: We will continue Plavix, Eliquis, statin, hypertensive regimen with hold as noted given low BP upon presentation, add back once appropriate. #11. Tobacco Abuse: Encouraged cessation, inpatient consultation per RT, NR if desired. #12. Severe protein calorie malnutrition: Evidenced by decreased BMI, poor oral intake, decreased appetite, possible weight loss, nutrition consulted. #13. DVT prophylaxis: SCDs, continue patient home Eliquis regimen. #14. CODE status: Patient SILVIO is her daughter and living will is currently in place. Discussed CODE status at length including difference between FULL code, DNR-CCA and DNR-CC status. Following discussions about the differences in these status, requested Full Code status. Advanced Care Planning Face to Face Time: 16 minutes. Charges/Coding Visit Charges OBSV E&M: 04100 Initial observation care L3 Procedures Hospitalists Procedures: 64620 Advncd Care Plan 30 Min
--- NOTE | 2022-04-05 22:14 | EKG12_ITS ---
Test Reason : SOB, PRE STRESS TEST Blood Pressure : / mmHG Vent. Rate : 095 BPM Atrial Rate : 095 BPM P-R Int : 138 ms QRS Dur : 084 ms QT Int : 378 ms P-R-T Axes : -04 024 064 degrees QTc Int : 475 ms Sinus rhythm with occasional Premature ventricular complexes Nonspecific T wave abnormality Prolonged QT Abnormal ECG Confirmed by ABBEY JJ, CATRACHITO ([id number]), acquisition editor JUNIOR PACHECO ([id number]) on 04/07/2022 10:21:20 AM Referred By: MONO Confirmed By:CATRACHITO POTTER MD
[2022-04-05 22:30] LABS: Magnesium 1.7 mg/dL (1.6-2.6)
[2022-04-05] MEDS: 0.9% Normal Saline 1,000 ML 100 ML IV (23:17)
[2022-04-06] VITALS (31 sets, daily range): BP systolic 84–98; BP diastolic 54–67; PULSE 69–105; RESP 18–24; TEMP 36.3–37; O2SAT 77–99
[2022-04-06 00:08] LABS: Troponin-I HS 19 pg/mL (3.0-54.0)
[2022-04-06 06:29] LABS: Absolute Lymphocyte Count 0.68 X10^3/uL (0.83-4.51); Basophil# 0.01 X10^3/uL; Basophil% 0.5 % (0-1); Eosinophil# 0.06 X10^3/uL; Eosinophils% 3.3 % (0-5); Hematocrit 30.5 % (37-47); Hemoglobin 9.9 g/dL (12.0-15.0); Lymphocyte # 0.68 X10^3/ul (0.83-4.51); Lymphocyte % 37.4 % (19-41); Mean Corp Hgb Conc 32.5 g/dL (32-36); Mean Corpuscular Hgb 30.6 pg (27.0-32.0); Mean Corpuscular Volume 94.1 fL (81-99); Mean Platelet Vol. 10.5 fl (6.2-12.0); Monocyte# 0.03 X10^3/uL; Monocyte% 1.6 % (0-10); NRBC Flagged by Analyzer 0 % (0-5); POSITIVE MORPHOLOGY YES; Platelet Count 169 K/mm3 (150-450); RBC Distribution Width CV 16.9 % (11.6-14.6); RBC Distribution Width SD 56.3 fl (35.1-43.9); Red Blood Count 3.24 M/mm3 (4.2-5.4); White Blood Count 1.8 K/mm3 (4.4-11.0)
[2022-04-06 06:43] LABS: Differential Indicated SCAN CRITERIA MET
[2022-04-06 06:57] LABS: ALB/GLOB Ratio 0.5 RATIO (0.9-2.4); AST(SGOT) 19 U/L (15-37); Alanine Aminotransfer ALT/SGPT 21 U/L (13-56); Albumin, Serum 1.9 g/dL (3.2-5.0); Alkaline Phosphatase 253 U/L (45-117); Anion Gap 9 (5-15); Anisocytosis 1+; BUN 13 mg/dL (7-18); BUN/Creat Ratio 19.6 RATIO (10-20); Calcium,Total 8.8 mg/dL (8.5-10.1); Chloride 103 mmol/L (98-107); Cholesterol 100 mg/dL (200); Creatinine, Serum 0.66 mg/dL (0.55-1.02); EST Glomerular Filtration Rate 94 mL/min (>60); Est Glom Filt Rate - Afr Amer 113 mL/min (>60); Estimated Creatinine Clearance 35.37 ml/min; Globulin 3.7 g/dL (2.2-4.2); Glucose 73 mg/dL (74-106); High Density Lipoprotein 46 mg/dL; Protein, Total 5.6 g/dL (6.4-8.2); Sodium Level 136 mmol/L (136-145); Triglycerides 80 mg/dL; Very Low Density Lipoprotein 16 mg/dL (5-40)
[2022-04-06] MEDS: Albuterol 2.5 MG/3 ML VIAL.NEB. INHALATION (07:23)
[2022-04-06] MEDS: Budesonide Respules 0.5 MG/2 ML AMPUL.NEB. INHALATION ×2 (07:24→20:10)
[2022-04-06 07:43] LABS: Hemoglobin A1c 6.2 % (3.8-5.6)
--- NOTE | 2022-04-06 07:48 | EKG12_ITS ---
Test Reason : admission EKG Blood Pressure : / mmHG Vent. Rate : 093 BPM Atrial Rate : 093 BPM P-R Int : 140 ms QRS Dur : 076 ms QT Int : 364 ms P-R-T Axes : 061 016 059 degrees QTc Int : 452 ms Normal sinus rhythm Normal ECG Confirmed by ABBEY JJ, CATRACHITO ([id number]), assistant film editor JUNIOR PACHECO ([id number]) on 04/07/2022 10:22:07 AM Referred By: Confirmed By:CATRACHITO POTTER MD
[2022-04-06] MEDS: 0.9% Saline Lock 10 ML Syringe IV ×2 (08:13→21:14)
[2022-04-06 08:17] LABS: Procalcitonin 0.27 ng/mL (0.00-0.09)
--- NOTE | 2022-04-06 11:15 | CASEMGMT ---
RN CM Face to Face with patient for initial transition planning/care coordination assessment. RN CM introduced self and role at [facility]. Patient lying in bed, alert and oriented. Patient willing to participate in assessment and is able to answer all questions appropriately. Care providers, pharmacy, and demographics verified. Patient wishes to discharge home, denies need for home health at this time. Patient states she has no further needs or concerns at this time. CM to follow for discharge planning needs that may arise. PCP: Claudy Specialists: Adi, Wound Center; Elvis, oncologist; Sneha, timber girdler Preferred Pharmacy: [facility]; [facility] retail at discharge. Insurance: [facility], [id number] Prescription Benefit: yes Living Will/HPOA: yes, son Martin Tyson, HPOA LNOK: son Living Arrangements: Patient patient lives alone in single story home with 2 steps to enter. Patient states she is independent at home. Transportation: self, son DME/HHC: patient states she has shower chair, raised toilet, grab bars, and walker at home. No previous HHC or SNF. Disposition Plan: Patient to discharge home with family support and follow-up plans in place. Pam OCAMPO, RN, CM
[2022-04-06 12:34] LABS: Pathologist Review Reviewed
--- NOTE | 2022-04-06 12:49 | STRESSREP ---
Stress Test Report Date: 04-06-2022 Procedure: Pharmacologic stress nuclear imaging study Indications: Shortness of breath/dyspnea on exertion; CAD; CABG; PAD; COPD; history of lung carcinoma Consent: Per the patient Procedure: The patient underwent pharmacologic (Regadenoson 0.4mg ) evaluation with a peak heart rate of 105 beats per minute (70%predicted maximal heart rate) and a peak blood pressure of 104/60 mmHg. The baseline ECG demonstrated normal sinus rhythm; nonspecific ST/T wave abnormality. The peak pharmacologic ECG demonstrated no obvious ECG changes. There were no cardiac dysrhythmias pretest, during pharmacologic infusion, or recovery. There was no complaint of chest discomfort during pharmacologic infusion or recovery. The examination was discontinued secondary to completion of protocol. Impression: 1. Pharmacologic (Regadenoson) evaluation 2. Peak pharmacologic ECG with continued nonspecific ST/T wave abnormality with no obvious ECG changes. 3. There were no cardiac dysrhythmias pretest, during pharmacologic infusion, or recovery. 4. Nuclear images pending Myocardial perfusion imaging study: Technique: The patient was injected with 11.4 millicuries of technetium 99m Cardiolite and subsequently rest SPECT Cardiolite nuclear imaging was obtained in the horizontal long, vertical long, and short axis views. The patient underwent pharmacologic (Regadenoson) evaluation with a peak heart rate of 105 beats per minute (70% percent predicted maximal heart rate) and a peak blood pressure of 104/60 mmHg. The patient was injected with 33.4 millicuries of technetium 99m Cardiolite and subsequently stress SPECT Cardiolite nuclear imaging was obtained in the horizontal long, vertical long, and short axis views. A gated Cardiolite study at peak stress was obtained. Interpretation: Rest and stress SPECT Cardiolite nuclear imaging status post realignment, normalization, and attenuation correction demonstrate the appearance of diminished absence of myocardial perfusion/tracer uptake in portions of the interventricular septal areas without significant change between rest and stress. There is diminished end-systolic thickening and brightening in the aforementioned areas. The gated Cardiolite study demonstrates diminished myocardial thickening and inward wall motion. The reported LVEF is 40%. Impression: 1. Rest and stress SPECT Cardiolite nuclear imaging demonstrate myocardial perfusion changes potentially compatible with an area of previous myocardial injury/infarction with no myocardial perfusion changes considered diagnostic for associated stress-induced myocardial ischemia. 2. The gated Cardiolite study reports an LVEF of 40%. This note was generated with Radiusation software. It may contain incorrect words, spelling, and punctuation that were not noted in checking the note before signing.
--- NOTE | 2022-04-06 13:19 | PN.HOSP_ITS ---
Subjective Subjective Follow-up for dyspnea on exertion progressive worsening, stage III COPD, right LL lobe cancer with poor physical functional capacity Patient admitted with dyspnea for 3 weeks started with dyspnea on mild exertion progressed to dyspnea at rest. Denies chest pain, Lung cancer. Sometimes dizziness on standing up. Objective Data Objective Data Vital Signs: Vital Signs Temp Pulse Resp BP Pulse Ox O2 Del Method O2 Flow Rate 97.4 F L 91 18 85/55 L 93 Nasal Cannula 2 04/06/22 11:00 04/06/22 11:00 04/06/22 11:00 04/06/22 11:00 04/06/22 11:00 04/06/22 11:00 04/06/22 11:00 Oxygen Flow Rate (L/min) 2 Oxygen Delivery Method Nasal Cannula Weight: 94 lb 5.725 oz Body Mass Index (BMI) 17.2 Intake & Output: Intake and Output for Last 24 Hours 04/04/22 04/05/22 04/06/22 23:59 23:59 23:59 Intake Total 500 / 700 700 / 700 Balance 500 / 700 700 / 700 Lab / Micro Data Result Diagrams: 04/06/22 06:03 04/06/22 06:03 Labs: Laboratory Results - last 24 hr 04/05/22 17:35: WBC 2.6 L, RBC 3.79 L, Hgb 11.6 L, Hct 36.0 L, MCV 95.0, MCH 30.6, MCHC 32.2, RDW Std Deviation 56.4 H, RDW Coeff of Janes 17.1 H, Plt Count 218, MPV 10.9, Immature Gran % (Auto) 0.400, Neut % (Auto) 85.3 H, Lymph % (Auto) 12.3 L, [place] % (Auto) 0.8, Eos % (Auto) 1.2, Baso % (Auto) 0.0, Absolute Neuts (auto) 2.2, Absolute Lymphs (auto) 0.32 L, Nucleated RBC % 0, Differential Comment SCANNED, Diff Path Review Reviewed 04/05/22 17:35: Sodium 132 L, Potassium 4.9, Chloride 99, Carbon Dioxide 27.0, Anion Gap 6, BUN 14, Creatinine 0.70, Estim Creat Clear Calc 35.99, Est GFR ( MDRD) Af Amer 106, Est GFR (MDRD) Non-Af 87, BUN/Creatinine Ratio 19.9, Glucose 131 H, Calcium 9.6, Troponin I High Sens 18 04/05/22 17:45: Lactic Acid 1.5 04/05/22 21:30: Troponin I High Sens 19 04/05/22 21:30: Phosphorus 2.0 L, Magnesium 1.7 04/05/22 23:35: Troponin I High Sens 19 04/06/22 06:03: WBC 1.8 L, RBC 3.24 L, Hgb 9.9 L, Hct 30.5 L, MCV 94.1, MCH 30.6, MCHC 32.5, RDW Std Deviation 56.3 H, RDW Coeff of Janes 16.9 H, Plt Count 169, MPV 10.5, Immature Gran % (Auto) 2.200 H, Neut % (Auto) 55.0, Lymph % (Auto) 37.4, [place] % (Auto) 1.6, Eos % (Auto) 3.3, Baso % (Auto) 0.5, Absolute Neuts (auto) 1.0 L, Absolute Lymphs (auto) 0.68 L, Nucleated RBC % 0, Anisocytosis 1+ 04/06/22 06:03: Sodium 136, Potassium 4.0, Chloride 103, Carbon Dioxide 24.0, Anion Gap 9, BUN 13, Creatinine 0.66, Estim Creat Clear Calc 35.37, Est GFR (MDRD) Af Amer 113, Est GFR (MDRD) Non-Af 94, BUN/Creatinine Ratio 19.6, Glucose 73 L, Calcium 8.8, Total Bilirubin 0.40, AST 19, ALT 21, Alkaline Phosphatase 253 H, Total Protein 5.6 L, Albumin 1.9 L, Globulin 3.7, Albumin/Globulin Ratio 0.5 L, Triglycerides 80, Cholesterol 100, LDL Cholesterol 38, VLDL Cholesterol 16, HDL Cholesterol 46 04/06/22 06:03: Hemoglobin A1c 6.2 H 04/06/22 06:03: Procalcitonin 0.27 H Micro: Microbiology 04/05/22 17:35 Nasal Secretion SARS-CoV-2 & FLU Antigen (Rapid) - Final Radiography Diagnostic Testing: Radiology Impression Chest CTA 04/05/22 17:32 IMPRESSION: ASHD and subsegmental atelectasis in both lower lobes. No evidence for pulmonary embolus Electronically Signed: Jose Hemphill MD at 18:57 EDT , Physical Exam Narrative Physical exam General: Alert, Oriented x3, Cooperative, severe protein calorie malnutrition, low BMI 17.3 kg/m? HEENT: Atraumatic, PERRLA, EOMI, Normocephalic Oral: Oral mucosa dry. No Gingival or Mucosal Lesions/ Ulcerations Neck: Supple, No JVD, Negative Carotid Bruits Lungs: Air entry diminished in bilateral lung bases. No crepitation/rhonchi Cardiovascular: Regular rate, Regular Rhythm, Normal S1, Normal S2, No murmurs Abdomen: Bowel Sounds Present, Soft, Non Tender, Non-Distended : No renal angle tenderness. No suprapubic tenderness. Extremities: No edema, Capillary Refill Less than 3 Seconds Skin: No rashes, No breakdown Musculoskeletal: Loss of subcutaneous fat and moderate muscle atrophy of extremities, paraspinal and craniofacial muscles. No Tenderness to Palpation of Joints or Extremities Neurological: Cranial nerves II-XII grossly intact, DTR 2+/4, muscle strength 4/5 at major joints. Psych/Mental Status: Flat affect. Assessment & Plan Assessment/Plan (1) SOB (shortness of breath): PLAN: Plan The patient is a 71 y/o F is admitted with dyspnea on exertion with progression to dyspnea at rest duration of 3 weeks along with sometimes dizziness. Patient also has increased productive cough, thick white sputum for 3 weeks. #1. Exertional dyspnea, most likely due to COPD exacerbation: Patient has COPD Gold stage III. Patient has new cough in last 3 weeks along with dyspnea therefore COPD exacerbation. There was a concern of anginal equivalent. Serial troponins negative. EKG showed no acute evidence of ischemia. Pharmacological myocardial nuclear stress test was done which was negative for acute ischemia. ACS/unstable angina ruled out. Patient had CTPA which showed subsegmental atelectasis both lower lobe otherwise no acute evidence of PE or new finding. On a scheduled bronchodilator, IV Solu-Medrol, incentive spirometer chest physiotherapy and Mucinex D. #2. Hypotension, suspect hypovolemic, I feel it is chronic due to poor nutritional status, decreased appetite, significantly decreased functional capacity: On IV fluid cautious not to cause pulmonary edema. #3. CAD status post CABG in October 2013.continue apixaban, Plavix, statin, metoprolol if blood pressure rales, temporarily holding Entresto given low blood pressures noted. #4. Chronic Systolic CHF: Most recent echo 02/02/2022 reported mild segmental systolic dysfunction, improvement in EF 45% from 25% of last echo 04/2021, trivial TVI, RVSP 31 mmHg. #5. 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 Leal of August 2021 reviewed. #6. Chronic open ulcer probably chronic sinus over right paraspinal region: Patient follows wound care center. Most recent wound care note from 03/30/2022 patient with history of biopsy secondary lump on her back removed in June 2021 however was noted to never heal with undermining improvement with some slough of the wound base with continued usage at the wound care center of Promogran and antibiotic therapies with recommended antibacterial soap with packing with Adina moistened covered with gauze dressing daily with recent 03/30/2022 initiation of doxycycline twice daily x14 days with 1 week follow-up. continue dressing changes. Patient has poor wound healing probably because of radiotherapy at that site. #7. COPD: As mentioned above #8. Hypertension: Holding home regimen given low BP upon presentation with patient admission of poor oral intake, continue very judicious hydration given reduced EF, add back regimen once appropriate. #9. Hyperlipidemia: Continue home statin regimen. AM FLP. #10. PAD s/p femoral artery repair: We will continue Plavix, Eliquis, statin, hypertensive regimen with hold as noted given low BP upon presentation, add back once appropriate. #11. Tobacco Abuse: Encouraged cessation, inpatient consultation per RT, NR if desired. #12. Severe protein calorie malnutrition: Evidenced by decreased BMI, poor oral intake, decreased appetite, possible weight loss, nutrition consulted. #13. DVT prophylaxis: SCDs, continue patient home Eliquis regimen. #14. CODE status: Patient SILVIO is her daughter and living will is currently in place. Discussed CODE status at length including difference between FULL code, DNR-CCA and DNR-CC status. Charges/Coding Visit Charges Inpatient E&M: 60166 Subs Hosp L3
[2022-04-06] MEDS: Ipratropium/Albuterol Sulfate 3 ML AMPUL.NEB INHALATION ×2 (14:15→20:10)
--- NOTE | 2022-04-06 14:36 | CASEMGMT ---
JOHN met with patient's son as he expressed concern for patient. Patient's son, Martin feels patient needs to be on Hospice. The chemo is not helping, patient is not eating or drinking. She has trouble getting around because she is in so much pain. Martin wishes a doctor would talk with her about Hospice. Martin said patient feels Hospice means she is going to in the next day. SW listened and provided emotional support. JOHN told Martin SW will talk with patient and also send a message to the physician. JOHN sent a message to physician and inquired if Dr Leal, patient's Oncologist could talk with patient. Connie Baig DERRICK WORKER JANE
[2022-04-06] MEDS: Pantoprazole Sodium 40 MG Tablet PO (14:45)
[2022-04-06] MEDS: APIXABAN 5 MG TABLET PO ×2 (14:45→21:13)
[2022-04-06] MEDS: Potassium Chloride Oral Tablet 20 MEQ PO (14:46)
[2022-04-06] MEDS: Folic Acid 1 MG Tablet PO (14:46)
[2022-04-06] MEDS: 0.9% Normal Saline 1,000 ML 100 ML IV ×2 (14:48→23:16)
[2022-04-06] MEDS: Ensure Plus High Protein 120 ML LIQUID PO ×2 (14:48→17:17)
[2022-04-06] MEDS: Clopidogrel Bisulfate 75 MG Tablet PO (14:58)
[2022-04-06] MEDS: guaiFENesin/D-Methorphan TAB.SR.12H 1 TABLET PO ×2 (17:04→21:17)
[2022-04-06] MEDS: Atorvastatin Calcium 80 MG Tablet PO (21:13)
[2022-04-07] VITALS (14 sets, daily range): BP systolic 83–95; BP diastolic 54–70; PULSE 81–98; RESP 16–20; TEMP 36.3–36.5; O2SAT 90–99
[2022-04-07] MEDS: 0.9% Saline Lock 10 ML Syringe IV (06:01)
[2022-04-07] MEDS: 0.9% Normal Saline 1,000 ML 100 ML IV (06:06)
[2022-04-07] MEDS: Ipratropium/Albuterol Sulfate 3 ML AMPUL.NEB INHALATION ×2 (06:58→12:44)
[2022-04-07] MEDS: Budesonide Respules 0.5 MG/2 ML AMPUL.NEB. INHALATION (06:59)
--- NOTE | 2022-04-07 08:26 | CON.PCM.ON_ITS ---
Assessment & Plan Assessment/Plan (1) SOB (shortness of breath): Status: Chronic Code(s): R06.02 - Shortness of breath Plan: Impression: -Metastatic NSCLC progressive with multiple lines of previous therapy. -No evidence of pulmonary parenchymal metastases. There are emphysematous changes on the CT scan. No PE and remains on apixaban. No obvious suggestion of pneumonitis from recent chemotherapy. However patient remains markedly dyspneic while saturating well after receiving gemcitabine. -Compromised LVEF. -Likely some degree of pulmonary HTN. -Possible volume overload. Plan: -Continue supplemental O2. -Trial of diuresis. -Prednisone 40 mg PO daily. -Potentially home tomorrow. -Stop gemcitabine permanently. -If has respiratory improvement could consider navelbine as next line of therapy. -Discussed with patient and Dr. Burch. HPI Consult Data Date of Service:: 04/07/22 PCP / Referring Provider: Dr. Kaylee Loco MD Attending: Dr. Johann Burch MD Chief Complaint Chief Complaint: Metstatic NSCLC History of Present Illness History of Present Illness: Oncologic problem(s): 1) Metastatic non-small cell lung cancer with liver metastases. 2) Pulmonary emboli. On apixaben. ?? HPI: The patient is a 71-year-old female with a past medical history significant for CAD?(MN 2004; 3 vessel CABG in 2003), DM2?and severe COPD. ? CT chest screening at [facility] 08/31/2017: There is a 2.4 cm x 2.2 cm x 2.4 cm spiculated suspicious nodular density in the posterior medial segment of the right lower lobe as seen on axial image #179. ?There is also evidence of a 2 cm x 1.3 cm irregular linear density in the posterior medial aspect of the left lower lobe as seen on axial image #171. ?There is also evidence of focal airspace disease in the posterior medial segment of the left lower lobe with a focal bronchiectasis in the left lower lobe as seen on axial image #166. ?Correlation with PET scan is recommended. ? Total lung nodules (excluding granulomas): ?3 ? Emphysema: ?Mild degree of emphysematous changes. ?Hyperinflation. ? Aorta: ?Atherosclerotic plaque formation. ? Coronary arteries: ?Coronary artery calcification. ? Heart: ?Prior CABG. ? Pulmonary artery: ?Unremarkable. ? Mediastinal nodes: ?Small benign-appearing mediastinal lymphadenopathy. ? Other chest and abdominal findings: ?Degenerative changes of the thoracic spine. ? PET?imaging revealed increased FDG uptake associated with only the right lower posterior hemithorax pulmonary parenchyma, right lower lobe with an SUV of 3.6. Brain MRI on 09/23/17 showed no evidence of intracranial metastatic disease. ? CT-guided biopsy of right lung lesion?at [facility] 09/13/2017: ? Pathology: Right lung, CT-guided biopsy: ?Non-small cell carcinoma, favor adenocarcinoma. ? Fine-needle aspiration of left lower lobe tumor?on 10/24/2017. ? Pathology: FINAL DIAGNOSIS A. LUNG, LEFT LOWER LOBE, FINE NEEDLE ASPIRATE(THINPREP, SMEARS AND CELL BLOCK) Positive for malignant cells. Adenocarcinoma. Comment: The FNA specimen is submitted for NGS molecular testing and ALK FISH, and results will be reported separately. ? BRAF ?No variant detected. EGFR - No variant detected. HER2 (ERBB2) - No variant detected. KRAS - A sequence change c.35G>A ([id number]) in exon 2 was detected at approximately 19% allelic proportion (depth of coverage at change [id number]). MET- No variant detected. ALK rearrangement negative. ? The LLL lung PTV received a total dose of 3400 cGy in 1 fractions at ?3400 cGy/fraction prescribed to Isocenter at 80.7% IDL using 6 MV ?photons with SBRT Coplanar VMAT technique with IGRT. ?The RLL lung PTV received a total dose of 3400 cGy in 1 fractions at ?3400 cGy/fraction prescribed to Isocenter at 85.2% IDL using 6 MV ?photons with SBRT Coplanar VMAT technique with IGRT?on 11/21/2017. ? Surveillance CT chest 03/03/2020: Post radiotherapy changes in both lung bases, in keeping with history of treated neoplasm, ongoing follow-up warranted Bilateral subcentimeter pulmonary nodules, the majority of which appear slightly increased in the interval. ?Additionally, partially imaged liver with regional and nodular/masslike areas of low-attenuation, appear progressed within limits of acquisition. ?Findings worrisome for progression of neoplastic disease, consider dedicated hepatic imaging Stable mediastinal lymph nodes. ? MRI liver 03/16/2020: RESULT: Liver: Multiple (at least 8) bilobar hepatic metastases, with reference measurements below. -3.5 x 2.8 cm segment 2 metastasis (11:52). -2.7 x 1.9 cm segment 5/6 metastasis (11:30). -3.1 x 2.8 cm segment 5 metastasis to the gallbladder fossa (11:22). -Background liver morphology is not cirrhotic. ?Mild hepatic steatosis. -Biliary: No bile duct dilation. Spleen: No mass. No splenomegaly. Pancreas: No mass or duct dilation. Adrenals: Thickening of the left adrenal gland, probably adenomatous hyperplasia given diffuse loss of signal on opposed phase sequences. ?? ? Normal right adrenal gland. Kidneys: ?No solid or cystic mass. ?No hydronephrosis. GI tract: No dilation or wall thickening. ?Periampullary duodenal diverticulum. Lymph nodes: Metastatic lymphadenopathy with reference measurements below. -1.5 x 1.4 cm gastrocolic ligament node (13:38). -1.6 x 1.2 cm centrally necrotic portacaval node (13:29). -1.5 x 1.1 cm centrally necrotic megan hepatis node (13:30). -2.1 x 1.2 cm centrally necrotic aortocaval node (13:70). Mesentery / Peritoneum / Retroperitoneum: No ascites or mass. Vasculature: ?The celiac axis and SMA are patent. The portal vein and branches, splenic vein, SMV, and hepatic veins are patent. ?Normal caliber abdominal aorta Bones/Soft Tissues: No bone metastasis Lower chest: Changes at the lung bases better assessed on the recently performed chest CT. ? Biopsy of liver lesion 04/08/2020. ? Pathology: Hepatic lesion, liver, biopsy - Metastatic adenocarcinoma, consistent with lung primary. ? Previous therapy: 1) Alimta/Carbo/Keytruda--First cycle 04/21/20. 2) Pembrolizumab. PD. Was in [place] and presented to ER for chest pain/pressure. ? Echocardiogram demonstrated normal left ventricular size with severely depressed left ventricular ejection fraction estimated at 25.2%. ?Dyskinesis of the basal inferior wall and inferior septum and anteroseptum was noted. ?Abnormal diastolic function, elevated filling pressure observed. ?Normal right ventricular size with mildly depressed right ventricular systolic function. ?Right ventricular systolic pressure was normal. ?There was mild regurgitation of the mitral valve. ? Underwent catheterization 04/21/2021. ?She was noted to have severe multivessel coronary artery disease including chronic total occlusion of all 3 major epicardial vessels. ?Only 2 of the 4 bypass grafts were patent. ?V. fib occurred during the injections into the saphenous vein graft into the left anterior descending artery. ?Patient was defibrillated and rhythm was restored. ? Followed up with her color coater. ?She was started on Bryant and was advised to continue holding aspirin but start Plavix. ? Was incidentally observed to have pulmonary emboli on recent CT imaging. ?She started on apixaban. ASA was held. 3) Taxotere. Current therapy: 1) Gemcitabine x 3 doses 03/18, 03/25 and 04/01. Dr. Mayfield started her on methadone when she was at her last OV for compression fracture thoracic vertebrae. Between that and gabapentin and Tylenol her pain is down to a tolerable level. She had a PET scan done at [facility]--That study demonstrated 2 liver metastases, celiac node metastases cervical lymph node metastasis. She was admitted for increasing shortness of breath. This started after she received her first dose of gemcitabine approximately 2 days later. It got progressively worse with age dose. Her cough is minimal. She is not producing sputum. She denies chest pain. On presentation to the ED CTA chest demonstrated no pulmonary embolism. There appears to be previous radiation changes from her SBRT when she was first diagnosed with the lung cancer. No new pulmonary parenchymal tumors. No pleural effusion. Emphysematous changes. She is oxygenating well on 2 L/min. However she gets markedly short of breath when walking distances beyond 25 or 50 feet. She underwent a nuclear stress test that demonstrated fixed area of infarction from previous [place]. EF 40%. Advanced Directives Power of Health Psychologist: Yes Living Will: Yes [facility] Medical History Atherosclerosis of coronary artery bypass graft without angina pectoris Chest pain, unspecified COPD (chronic obstructive pulmonary disease) Diabetes mellitus Essential hypertension History of left heart catheterization (LHC) (~04/21/21) Hyperlipemia Kidney stone Liver cancer Long-term use of high-risk medication Lung cancer Lung mass Old myocardial infarction Primary cancer of right lower lobe of lung SOB (shortness of breath) Stage 3 severe COPD by GOLD classification Tobacco abuse Ventricular fibrillation Home Medications omeprazole 40 mg capsule,delayed release 40 mg PO DAILY 08/10/15 [History Last Taken Unknown] rosuvastatin 40 mg tablet 40 mg PO DAILY 08/10/15 [History Last Taken Unknown] budesonide-formoterol HFA 160 mcg-4.5 mcg/actuation aerosol inhaler (Symbicort) 2 inh inhalation Q12H 06/26/17 [History Last Taken Unknown] acetaminophen 500 mg tablet (Tylenol Extra Strength) 500 mg PO Q8H PRN Pain 10/14/20 [History Last Taken Unknown] albuterol sulfate 90 mcg/actuation aerosol inhaler (ProAir HFA) 2 puff inhalation Q6H PRN Shortness Of Breath 10/14/20 [History Last Taken Unknown] folic acid 1 mg tablet 1 mg PO DAILY 10/14/20 [History Last Taken Unknown] apixaban 5 mg tablet 5 mg PO BID 04/14/21 [History Last Taken Unknown] fluticasone propionate 50 mcg/actuation nasal spray,suspension (Allergy Relief (fluticasone)) 2 spray intranasal DAILY PRN other 04/29/21 [History Last Taken Unknown] gabapentin 300 mg capsule 300 mg PO QHS PRN Pain, Mild 04/29/21 [History Last Taken Unknown] clopidogrel 75 mg tablet (Plavix) 75 mg PO DAILY #90 tabs 07/12/21 [Rx Last Taken Unknown] metoprolol succinate 25 mg tablet,extended release 24 hr 25 mg PO DAILY #90 tabs 10/08/21 [Rx Last Taken Unknown] magnesium oxide 400 mg (241.3 mg magnesium) tablet 400 mg PO DAILY 10/26/21 [History Last Taken Unknown] potassium chloride 20 mEq tablet,extended release 20 meq PO DAILY 10/26/21 [History Last Taken Unknown] spironolactone 25 mg tablet 25 mg PO Q OTHER DAY #45 tabs 10/26/21 [Rx Last Taken Unknown] sacubitril 49 mg-valsartan 51 mg tablet (Entresto) 1 tab PO BID #180 tabs 11/22/21 [Rx Last Taken Unknown] methadone 5 mg tablet 5 mg PO BID 04/05/22 [History Last Taken Unknown] Allergy/AdvReac Type Severity Reaction Status Date / Time adhesive tape Allergy Severe welts, Verified 04/05/22 16:39 rash bee venom protein (honey bee) Allergy Anaphylaxis Verified 04/05/22 16:39 codeine Allergy Itching Verified 04/05/22 16:39 Family History Brother Myocardial infarction Diabetes CAD (coronary artery disease) Hx of CABG Sister Diabetes CAD (coronary artery disease) Brother CAD (coronary artery disease) Hx of CABG Diabetes Brother CAD (coronary artery disease) Hx of CABG Surgical History femoral artery repair History of cholecystectomy History of hysterectomy Presence of aortocoronary bypass graft (~10/2003) Social History (Updated 04/05/22 @ 22:[address] Kathleen Baker MD) household members: none Smoking Status: Current every day smoker tobacco type: cigarettes Electronic Cigarette Use: not used second hand exposure: Yes alcohol intake: current alcohol intake frequency: a few times a week Alcohol type: wine details: occasional substance use type: does not use caffeine: Yes Type: carbonated beverages Number of servings: 3 Physical Exam Const oriented x3 HEENT normocephalic Neck no lymphadenopathy Resp normal respiratory effort Effort and Inspection: able to speak in complete sentences Cardio regular rhythm Extremity no pedal edema Vital Signs Temperature 97.5 F L 04/07/22 04:19 Temperature Source Oral 04/07/22 04:19 Pulse Rate 86 04/07/22 06:59 Pulse Strength Normal (2+) 04/06/22 22:00 Respiratory Rate 16 04/07/22 06:59 Respiratory Effort 04/07/22 02:00 Respiratory Depth Normal 04/07/22 02:00 Respiratory Pattern Normal 04/07/22 06:59 Blood Pressure 95/61 04/07/22 04:19 Blood Pressure Mean 72 04/07/22 04:19 Blood Pressure Source Monitor 04/07/22 01:59 Blood Pressure Position Supine 04/07/22 01:59 Blood Pressure Location Left Arm 04/07/22 01:59 Pulse Ox 99 04/07/22 04:19 Oxygen Delivery Method Nasal Cannula 04/07/22 04:19 Oxygen Flow Rate (L/min) 2 04/07/22 04:19 Laboratory Results - last 24 hr 04/05/22 17:35: Diff Path Review Reviewed Diagnostic Data Chest CTA 04/05/22 17:32 IMPRESSION: ASHD and subsegmental atelectasis in both lower lobes. No evidence for pulmonary embolus Electronically Signed: Jose Hemphill MD at 18:57 EDT ,
[2022-04-07] MEDS: Ensure Plus High Protein 120 ML LIQUID PO (09:13)
[2022-04-07] MEDS: guaiFENesin/D-Methorphan TAB.SR.12H 1 TABLET PO (09:13)
[2022-04-07] MEDS: Potassium Chloride Oral Tablet 20 MEQ PO (09:13)
[2022-04-07] MEDS: Pantoprazole Sodium 40 MG Tablet PO (09:13)
[2022-04-07] MEDS: Folic Acid 1 MG Tablet PO (09:13)
[2022-04-07] MEDS: Clopidogrel Bisulfate 75 MG Tablet PO (09:13)
[2022-04-07] MEDS: APIXABAN 5 MG TABLET PO (09:13)
[2022-04-07] MEDS: Furosemide 20 MG/2 ML VIAL IV (09:13)
[2022-04-07] MEDS: Aspirin E.C. 81 MG Tablet PO (09:13)
--- NOTE | 2022-04-07 10:30 | RAD_ITS ---
INDICATION: PULM Edema EXAMINATION/TECHNIQUE: X-RAY - XR Chest 1 View COMPARISON: 09/13/2017. FINDINGS: LINES/DEVICES: Sternal wires are seen. Surgical clips visualized superimposed over the left hemithorax. EKG leads are seen superimposed over the chest. LUNGS: Peribronchial cuffing bilateral hilar prominence is seen. Mild prominence of the bronchovascular interstitial lung markings is visualized bilaterally. Linear subsegmental atelectatic streaks visualized in bilateral lung nolan. Mild prominence of the right minor fissure is seen. Blunting of bilateral costophrenic angles is seen that demonstrates no significant increase in comparison to the prior studies consistent with small bilateral pleural effusions.. No evidence of pneumothorax or parenchymal lung masses seen. Biapical prominence is visualized demonstrating no change. MEDIASTINUM AND CARDIOVASCULAR STRUCTURES: Cardiac silhouette is within normal limits. BONES AND SOFT TISSUES: Degenerative bone changes are seen. RAD/Chest 1 View (Portable) IMPRESSION: Congestive changes demonstrate prominence in comparison to the prior study. Electronically Signed: Dilshad Hughes MD at 15:31 EDT ,
--- NOTE | 2022-04-07 10:37 | CASEMGMT ---
JOHN spoke with patient's son, Martin after reading Dr Leal's note. SW let him know Dr Leal did not talk with patient about Hospice. Martin was upset as he feels they keep continuing chemo for the money. JOHN suggested a family member go with patient to one of her appointments with Dr Leal and express his/her concerns. A little bit later Martin came out of patient's room and said patient told him Dr Leal told her she is done with chemo. SW did review Dr Leal's note and it does indicate she will stop the chemo drug she was on. However, if her respiratory status improves they may consider another medication. Connie Baig POWER ELECTRONICS RESEARCH ENGINEER NURSE AIDE EVALUATOR
--- NOTE | 2022-04-07 11:00 | DCINST_ITS ---
Discharge Instructions Diet Discharge Diet: 2000 mg Sodium Diet Activity Discharge Activity: Return to Normal Activity Weight Bearing Status: Weight bearing as tolerated Dressing / Incision Call your doctor if you observe: Fever of 101 or Higher, Coldness, Increased Pain, Numbness or Tingling, Change in Color, Inability to urinate, Inability to have a bowel movement, Using more than 1 pad per hour, Shortness of breath, Dizziness, Fainting spells, Swelling in the ankles, Chest pain, Prolonged hiccupping, Increased palpitations (irregular heartbeat), Calf discomfort and Uncontrolled pain Follow Up Care Test Results: Test results from this visit will be discussed in further detail at your follow- up appointment, if applicable. Discharge Plan Admission Admit Date/Time: 04/06/22 10:45 Primary Reason for Your Visit: COPD exacerbation Attending Provider: Johann Burch Primary Care Provider: Kaylee Loco Consulting Providers: Kathleen Baker ; Jhonny Leal Instructions Additional Instructions / Restrictions: Advised BMP, magnesium and phosphorus in 1 week and follow-up with PCP Discharge Orders/Prescriptions Prescriptions: New Mucinex DM 30-600 mg Tablet Extended Release 12 Hr 1 tab PO BID Qty: 14 0RF potassium, sodium phosphates 280-160-250 mg Powder In Packet 1 packet PO TID 2 Days Qty: 6 0RF prednisone 10 mg tablets,dose pack See Taper PO DAILY Qty: 30 0RF Taper: Prednisone Taper 40 mg WITH BREAKFAST for 3 Days and 0 Hour 30 mg WITH BREAKFAST for 3 Days and 0 Hour 20 mg WITH BREAKFAST for 3 Days and 0 Hour 10 mg WITH BREAKFAST for 3 Days and 0 Hour Continued budesonide-formoterol [Symbicort] 160-4.5 mcg/actuation HFA aerosol inhaler 2 inh INHALATION Q12H albuterol sulfate [ProAir HFA] 90 mcg/actuation HFA aerosol inhaler 2 puff INHALATION Q6H PRN (Reason: Shortness Of Breath) folic acid 1 mg tablet 1 mg PO DAILY acetaminophen [Tylenol Extra Strength] 500 mg tablet 500 mg PO Q8H PRN (Reason: Pain) gabapentin 300 mg capsule 300 mg PO QHS PRN (Reason: Pain, Mild) fluticasone propionate [Allergy Relief (fluticasone)] 50 mcg/actuation spray,suspension 2 spray INTRANASAL DAILY PRN (Reason: other) Rx Instructions: administer into each nostril apixaban 5 mg tablet 5 mg PO BID magnesium oxide 400 mg (241.3 mg magnesium) tablet 400 mg PO DAILY spironolactone 25 mg tablet 25 mg PO Q OTHER DAY Qty: 45 3RF omeprazole 40 MG capsule 40 mg PO DAILY rosuvastatin 40 MG tablet 40 mg PO DAILY methadone 5 mg tablet 5 mg PO BID metoprolol succinate 25 mg tablet extended release 24 hr 25 mg PO DAILY Qty: 90 3RF Entresto 49-51 mg tablet 1 tab PO BID Qty: 180 3RF Held potassium chloride 20 mEq tablet extended release 20 meq PO DAILY Hold Instructions: Hold for 3 days as patient on Neutra-Phos. Discontinued clopidogrel [Plavix] 75 mg tablet 75 mg PO DAILY Qty: 90 3RF Referrals / Follow Up: Kaylee Loco MD [Primary Care Provider] - Within 1 Week Jhonny Leal DO [Med Staff - Active Staff] - Within 1 Month Disposition Disposition (needs filled in before D/C Order can be placed): Home, Self Care
--- NOTE | 2022-04-07 11:35 | PCM.DC.SUM ---
Providers Date of Admission: 04/06/22 Date of Discharge: 04/07/22 Primary Care Physician: Dr. Kaylee Loco MD Consultations 04/06/22 15:36 Consult: Oncology/Hematology Routine Consulting Provider: Jhonny Leal Reason for Consult: Stage IV NSCL, poor performance status, prognosis EMERGENT Consult: No MD Notified: Yes Date Notified: 04/06/22 Time Notified: 15:36 Method of Notification: Verbal Reason For Visit: EXERTIONAL DYSPNEA Diagnosis Discharge Diagnosis (1) SOB (shortness of breath): Status: Chronic Code(s): R06.02 - Shortness of breath Medications at Discharge Home Medications omeprazole 40 mg capsule,delayed release 40 mg PO DAILY 08/10/15 rosuvastatin 40 mg tablet 40 mg PO DAILY 08/10/15 budesonide-formoterol HFA 160 mcg-4.5 mcg/actuation aerosol inhaler (Symbicort) 2 inh inhalation Q12H 06/26/17 acetaminophen 500 mg tablet (Tylenol Extra Strength) 500 mg PO Q8H PRN Pain 10/14/20 albuterol sulfate 90 mcg/actuation aerosol inhaler (ProAir HFA) 2 puff inhalation Q6H PRN Shortness Of Breath 10/14/20 folic acid 1 mg tablet 1 mg PO DAILY 10/14/20 apixaban 5 mg tablet 5 mg PO BID 04/14/21 fluticasone propionate 50 mcg/actuation nasal spray,suspension (Allergy Relief (fluticasone)) 2 spray intranasal DAILY PRN other 04/29/21 gabapentin 300 mg capsule 300 mg PO QHS PRN Pain, Mild 04/29/21 metoprolol succinate 25 mg tablet,extended release 24 hr 25 mg PO DAILY #90 tabs 10/08/21 magnesium oxide 400 mg (241.3 mg magnesium) tablet 400 mg PO DAILY 10/26/21 potassium chloride 20 mEq tablet,extended release 20 meq PO DAILY 10/26/21 spironolactone 25 mg tablet 25 mg PO Q OTHER DAY #45 tabs 10/26/21 sacubitril 49 mg-valsartan 51 mg tablet (Entresto) 1 tab PO BID #180 tabs 11/22/21 methadone 5 mg tablet 5 mg PO BID 04/05/22 dextromethorphan-guaifenesin 30 mg-600 mg tablet extended [id number] hr (Mucinex DM) 1 tab PO BID #14 tabs 04/07/22 potassium, sodium phosphates 280 mg-160 mg-250 mg oral powder packet 1 packet PO TID 2 days #6 ea 04/07/22 prednisone 10 mg tablets in a dose pack See Taper PO DAILY #30 tabs 04/07/22 Hospital Course Summary of Care Provided Hospital Course: The patient is a 71 y/o F is admitted with dyspnea on exertion with progression to dyspnea at rest duration of 3 weeks along with sometimes dizziness. Patient also has increased productive cough, thick white sputum for 3 weeks. #1. Exertional dyspnea, most likely due to COPD exacerbation: Patient has COPD Gold stage III. Patient has new cough in last 3 weeks along with dyspnea therefore COPD exacerbation. There was a concern of anginal equivalent. Serial troponins negative. EKG showed no acute evidence of ischemia. Pharmacological myocardial nuclear stress test was done which was negative for acute ischemia. ACS/unstable angina ruled out. Patient had CTPA which showed subsegmental atelectasis both lower lobe and diffuse emphysematous changes otherwise no acute evidence of PE or new finding. On a scheduled bronchodilator, IV Solu-Medrol, incentive spirometer chest physiotherapy and Mucinex D. 04/07: Patient shortness of breath is much improved. Exertional dyspnea resolved. She was on IV fluid that was discontinued. Mild peripheral edema in hands. Lasix 20 mg IV given. Repeat chest x-ray individually reviewed and does not show pulmonary edema.Hypoxia resolved, currently. 93 on room air. #2. Hypotension, suspect hypovolemic, I feel it is chronic due to poor nutritional status, decreased appetite, significantly decreased functional capacity: On IV fluid cautious not to cause pulmonary edema. 04/07: Discussed with Dr. Leal. Patient has chronic hypotension. She easily gets fluid overload because of low BMI #3. CAD status post CABG in October 2013.continue apixaban, Plavix, statin, metoprolol if blood pressure rales, temporarily holding Entresto given low blood pressures noted. #4. Chronic Systolic CHF: Most recent echo 02/02/2022 reported mild segmental systolic dysfunction, improvement in EF 45% from 25% of last echo 04/2021, trivial TVI, RVSP 31 mmHg. #5. 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 Leal of August 2021 reviewed. 04/07: Discussed with Dr. Leal yesterday and today. Patient seen by Dr. Leal. Patient has a stage IV NSCLC lung cancer with metastasis to liver, 2 nodules, cervical lymph node, behind to anterior tubular vein, celiac lymph node but no skeletal/bony metastasis. No evidence of pulmonary parenchymal metastasis. No obvious suggestion of pneumonitis from chemotherapy. He advised to stop gemcitabine permanently. If respiratory improvement could consider [place] been a Of therapy. #6. Chronic open ulcer probably chronic sinus over right paraspinal region: Patient follows wound care center. Most recent wound care note from 03/30/2022 patient with history of biopsy secondary lump on her back removed in June 2021 however was noted to never heal with undermining improvement with some slough of the wound base with continued usage at the wound care center of Promogran and antibiotic therapies with recommended antibacterial soap with packing with Adina moistened covered with gauze dressing daily with recent 03/30/2022 initiation of doxycycline twice daily x14 days with 1 week follow-up. continue dressing changes. Patient has poor wound healing probably because of radiotherapy at that site. #7. COPD: As mentioned above #8. Hypertension: Holding home regimen given low BP upon presentation with patient admission of poor oral intake, continue very judicious hydration given reduced EF, add back regimen once appropriate. #9. Hyperlipidemia: Continue home statin regimen. AM FLP. #10. PAD s/p femoral artery repair: We will continue Plavix, Eliquis, statin, hypertensive regimen with hold as noted given low BP upon presentation, add back once appropriate. #11. Tobacco Abuse: Encouraged cessation, inpatient consultation per RT, NR if desired. #12. Severe protein calorie malnutrition: Evidenced by decreased BMI, poor oral intake, decreased appetite, possible weight loss, nutrition consulted. #13. DVT prophylaxis: SCDs, continue patient home Eliquis regimen. #14. CODE status: Patient HCPOA is her daughter and living will is currently in place. Discussed CODE status at length including difference between FULL code, DNR-CCA and DNR-CC status. Discharge medication reconciliation done. Discharge follow-up instructions completed. Discharge process discussed with the patient and all questions were answered to patient's satisfaction. Discharged home. Discharged on tapering dose of prednisone, Mucinex D and Neutra-Phos for 2 days. Hold potassium supplement while patient is on Neutra-Phos. Spironolactone is on every other day. Total time spent, exact 35 minutes on discharge meds reconciliation, examination, coordination of care with nurses and ancillary staff, review of imaging and blood test and discussion with the patient on follow-up instructions. Physical Exam Narrative Seen and examined. Patient shortness of breath improved. Physical exam General: Alert, Oriented x3, Cooperative, severe protein calorie malnutrition, low BMI 17.3 kg/m? HEENT: Atraumatic, PERRLA, EOMI, Normocephalic Oral: Oral mucosa dry. No Gingival or Mucosal Lesions/ Ulcerations Neck: Supple, No JVD, Negative Carotid Bruits Lungs: Air entry diminished in bilateral lung bases. Mild crepitations. Cleared after Lasix Cardiovascular: Regular rate, Regular Rhythm, Normal S1, Normal S2, No murmurs Abdomen: Bowel Sounds Present, Soft, Non Tender, Non-Distended : No renal angle tenderness. No suprapubic tenderness. Extremities: Forearm and hand swelling pitting edema., Capillary Refill Less than 3 Seconds Skin: No rashes, No breakdown Musculoskeletal: Loss of subcutaneous fat and moderate muscle atrophy of extremities, paraspinal and craniofacial muscles. No Tenderness to Palpation of Joints or Extremities Neurological: Cranial nerves II-XII grossly intact, DTR 2+/4, muscle strength 4/5 at major joints. Psych/Mental Status: Flat affect. Medical Records Data Medical Nutrition Assessment Dietitian: Malnutrition Criteria Met Start: 04/06/22 16:04 Freq: Status: Active Protocol: Document 04/06/22 16:04 (Rec: 04/06/22 16:04 [id number]) Nutrition Malnutrition Evidence of Malnutrition Exists Yes Malnutrition (severe): Chronic Evidenced By Suboptimal Energy Intake ( Severe),Weight Loss (Severe), Physical Changes (Severe) Clinical Problem Chronic Disease or Condition Related Malnutrition Etiology severe, chronic malnutrition r /t inadequate energy intake w/ increased energy needs d/t cancer Signs/Symptoms as evidenced by estimated PO intake meeting <50% of estimated energy needs >3 months; unintentional wt loss of 20.6#/18% < 3 months; severe muscle wasting/fat loss per physical exam; BMI 17.3 Status Active Problem Recommendation Dietitian Recommendations/Changes will adjust diet to regular given severe malnutrition; will add ensure plus high protein 120mL 4x/day w/ medpass and magic cup w/ lunch for additional calories/ protein if consumed. Weight / BMI Weight Weight: 99 lb 13.91 oz Body Mass Index (BMI) 17.2 ABG / Lab / Microbiology Data Result Diagrams: 04/06/22 06:03 04/06/22 06:03 Laboratory: Laboratory Results - last 24 hr 04/05/22 17:35: Diff Path Review Reviewed Microbiology: Microbiology 04/05/22 17:35 Nasal Secretion SARS-CoV-2 & FLU Antigen (Rapid) - Final D/C Instructions Discharge Diet: 2000 mg Sodium Diet Weight Bearing Status: Weight bearing as tolerated Call your doctor if you observe: Fever of 101 or Higher, Coldness, Increased Pain, Numbness or Tingling, Change in Color, Inability to urinate, Inability to have a bowel movement, Using more than 1 pad per hour, Shortness of breath, Dizziness, Fainting spells, Swelling in the ankles, Chest pain, Prolonged hiccupping, Increased palpitations (irregular heartbeat), Calf discomfort and Uncontrolled pain Meaningful Use Info Meaningful Use Diagnoses (Choose all that apply): None applicable Discharge Plan Admission Admit Date/Time: 04/06/22 10:45 Primary Reason for Your Visit: COPD exacerbation Attending Provider: Johann Burch Primary Care Provider: Kaylee Loco Consulting Providers: Kathleen Baker ; Jhonny Leal Instructions Additional Instructions / Restrictions: Advised BMP, magnesium and phosphorus in 1 week and follow-up with PCP Discharge Orders/Prescriptions Prescriptions: New Mucinex DM 30-600 mg Tablet Extended Release 12 Hr 1 tab PO BID Qty: 14 0RF potassium, sodium phosphates 280-160-250 mg Powder In Packet 1 packet PO TID 2 Days Qty: 6 0RF prednisone 10 mg tablets,dose pack See Taper PO DAILY Qty: 30 0RF Taper: Prednisone Taper 40 mg WITH BREAKFAST for 3 Days and 0 Hour 30 mg WITH BREAKFAST for 3 Days and 0 Hour 20 mg WITH BREAKFAST for 3 Days and 0 Hour 10 mg WITH BREAKFAST for 3 Days and 0 Hour Continued budesonide-formoterol [Symbicort] 160-4.5 mcg/actuation HFA aerosol inhaler 2 inh INHALATION Q12H albuterol sulfate [ProAir HFA] 90 mcg/actuation HFA aerosol inhaler 2 puff INHALATION Q6H PRN (Reason: Shortness Of Breath) folic acid 1 mg tablet 1 mg PO DAILY acetaminophen [Tylenol Extra Strength] 500 mg tablet 500 mg PO Q8H PRN (Reason: Pain) gabapentin 300 mg capsule 300 mg PO QHS PRN (Reason: Pain, Mild) fluticasone propionate [Allergy Relief (fluticasone)] 50 mcg/actuation spray,suspension 2 spray INTRANASAL DAILY PRN (Reason: other) Rx Instructions: administer into each nostril apixaban 5 mg tablet 5 mg PO BID magnesium oxide 400 mg (241.3 mg magnesium) tablet 400 mg PO DAILY spironolactone 25 mg tablet 25 mg PO Q OTHER DAY Qty: 45 3RF omeprazole 40 MG capsule 40 mg PO DAILY rosuvastatin 40 MG tablet 40 mg PO DAILY methadone 5 mg tablet 5 mg PO BID metoprolol succinate 25 mg tablet extended release 24 hr 25 mg PO DAILY Qty: 90 3RF Entresto 49-51 mg tablet 1 tab PO BID Qty: 180 3RF Held potassium chloride 20 mEq tablet extended release 20 meq PO DAILY Hold Instructions: Hold for 3 days as patient on Neutra-Phos. Discontinued clopidogrel [Plavix] 75 mg tablet 75 mg PO DAILY Qty: 90 3RF Referrals / Follow Up: Kaylee Loco MD [Primary Care Provider] - Within 1 Week Jhonny Leal DO [Med Staff - Active Staff] - Within 1 Month Disposition Disposition (needs filled in before D/C Order can be placed): Home, Self Care Charges/Coding Visit Charges Inpatient E&M: 05952 Disch Hosp
--- NOTE | 2022-04-07 12:08 | CASEMGMT ---
Patient does not qualify for home oxygen. LIU CM in to discuss discharge needs. Patient is up independent in room. Patient denies needs at this time. LIU MOSS updated patient that should she need HHC or further DME in the future to follow-up with PCP, patient voiced understanding. Patient had no further questions or concerns.
== END 2022-04-07 12:57 | disposition home or self-care (01) | DRG 190 ==
LOC: ED 21:55 → PCU 22:29
PROVIDERS: Nurse Practitioner Family; Admitting Provider Family Medicine; Emergency Provider Emergency Medicine; PCP Internal Medicine; Visit Provider Internal Medicine
DX: J43.9 Emphysema, unspecified (principal); E43 Unspecified severe protein-calorie malnutrition; C77.0 Secondary and unspecified malignant neoplasm of lymph nodes of head, face and neck; J47.1 Bronchiectasis with (acute) exacerbation; C34.31 Malignant neoplasm of lower lobe, right bronchus or lung; C77.2 Secondary and unspecified malignant neoplasm of intra-abdominal lymph nodes; C78.7 Secondary malignant neoplasm of liver and intrahepatic bile duct; I50.22 Chronic systolic (congestive) heart failure; Z68.1 Body mass index [BMI] 19.9 or less, adult; I27.20 Pulmonary hypertension, unspecified; L98.429 Non-pressure chronic ulcer of back with unspecified severity; E86.1 Hypovolemia; I95.89 Other hypotension; E11.51 Type 2 diabetes mellitus with diabetic peripheral angiopathy without gangrene; I11.0 Hypertensive heart disease with heart failure; I25.10 Atherosclerotic heart disease of native coronary artery without angina pectoris; I25.82 Chronic total occlusion of coronary artery; F17.210 Nicotine dependence, cigarettes, uncomplicated; E78.5 Hyperlipidemia, unspecified; I25.2 Old myocardial infarction; R09.02 Hypoxemia; R91.8 Other nonspecific abnormal finding of lung field; Z95.1 Presence of aortocoronary bypass graft; Z79.01 Long term (current) use of anticoagulants; Z79.02 Long term (current) use of antithrombotics/antiplatelets; Z79.899 Other long term (current) drug therapy; Z92.3 Personal history of irradiation
CPT/HCPCS: 36415; 71045; 71275; 78452; 80048; 80053; 80061; 83036; 83605; 83735; 84100; 84145; 84484; 85025; 87428; 93005; 93017; 94640; 94667; 97116; 97162; 97166; 97530; 97535; 97802; 99251; 99285; 99406; A9500; J7030; J7040; Q9967; A4216; G0463; J1940; J2785

== ENCOUNTER 2022-04-13 10:00 | Outpatient (RCR) | payer MEDICARE, OTHER, SELFPAY ==
[2017-10-05 11:04] VITALS: BMI 28.2
[2022-03-17 00:37] VITALS: BP 138/74; PULSE 78; TEMP 36
[2022-03-23 11:01] VITALS: BP 119/49; PULSE 61; TEMP 36.1
--- NOTE | 2022-03-23 13:04 | PN.PCM_ITS ---
History of Present Illness Date of Service: 03/23/22 Chief Complaint: Follow-up on open wound right adjacent to spine mid back. History of Wound: 71-year-old white female that has many comorbidities and problems she has liver cancer and lung cancer surgery she is diabetic controlled with diet she has history severe COPD congestive heart failure and many other problems. Patient had a biopsy of a lump on her back removed in around June of this last year by Dr. Werner and it never healed. Progress of Wound: Wound is not moving real well positive cultures she is just going to be picking up the antibiotic today. Still has undermining Subjective Subjective Patient is tolerant to care Objective Data Objective Data Patient be started on doxycycline twice a day for 14 days We will try using Adina instead of Promogran Vital Signs: Vital Signs Temp Pulse BP 97.0 F L 61 119/49 L 03/23/22 11:01 03/23/22 11:01 03/23/22 11:01 Lab / Micro Data Attestation: I reviewed the patient's lab results. Physical Exam Const oriented x3 General Appearance: cooperative Exam Limitations: no limitations HEENT normocephalic Head and Scalp: normal to inspection Face and Sinus: normal facial exam Nose: external nose normal General Ear: hearing grossly impaired External Ear: external ears normal Mouth: oral and palatal mucosa normal Eyes PERRL General Eye: normal appearance of both eyes Neck full ROM General: normal visual inspection Resp normal respiratory effort Effort and Inspection: able to speak in complete sentences Auscultation: clear to auscultation bilaterally Cardio regular rate and regular rhythm Palpation: normal PMI Rate: regular rate Rhythm: regular rhythm GI Auscultation: normoactive bowel sounds Palpation: soft and no hepatosplenomegaly external exam normal Back/Spine Cervical Spine: cervical ROM normal Thoracic Spine / Upper Back: normal to inspection Lumbar Spine / Lower Back: normal to inspection Extremity normal to inspection General Extremity: normal exam except as noted Skin Skin Narrative: Postop puncture wound from a biopsy done in June 2021 Wounds: wounds noted Neuro oriented x3 Psych Appearance: grossly normal Speech: normal speech Thought Content: normal thought content Judgement: judgement good Debridement Note Debridement Note Wound debrided: Nonhealing surgical wound Laterality: Right Type of Debridement: Excisional debridement Anesthesia Used: 5% Lidocaine Gel Depth: in the subcutaneous layer Percentage of wound debrided: 100 Instrument Used: 3mm curette Tissue Removed: Fibrin Severity: Fat Layer Exposed Amount of bleeding with debridement: Mild Bleeding Controlled with: Compression and gauze Patient tolerated procedure: Patient tolerated procedure well Post-Debridement Measurements and Additional Note: Post-Debridement Measurements/Treatment - Nurse 1 - General Ulcer Assessment Start: 03/23/22 11:01 Freq: Status: Active Protocol: [facility]OLA Activity Type Activity Date Activity User E-sign Co-sign Detail Recorded Client Recorded Date Recorded By Document 03/23/22 11:01 SOLOMON [id number] 03/23/22 11:03 SOLOMON 03/23/22 11:01 - Today's Visit Information Type of service Follow-up Visit (Physician/DIPLOMATIC OFFICER ) Arrival Mode Ambulatory Patient Identification Verified (Name & Yes ) Vital Signs Temperature (97.8 F-99.1 F) 97.0 F L Temperature Source Temporal Pulse Rate (60-100) 61 Pulse Location Monitor Blood Pressure (90/60-120/80) 119/49 L Blood Pressure Mean (mm Hg) 72 Source Monitor Position Semi-Fowlers Blood Pressure Location Left Arm History Since Last Visit- (Skip if this is Patient's initial visit) Have you changed medications since your No last visit? Any new allergies or adverse reactions No Had a fall/change in ADL's that may No increase risk of falls Signs or symptoms of abuse and/or No neglect since last visit Have you been in the hospital since your No last visit? Has dressing in place as prescribed Yes Has compression in place as prescribed N/A Has offloadiing in place as prescribed N/A Experienced any changes in pain level or No management Left Footwear Regular Shoe Right Footwear Regular Shoe Pain Scale: 0-10 Numeric Is Patient Pain Free? Yes [facility] Nurse 1 - General Ulcer Measurement Start: 03/23/22 11:01 Freq: Status: Active Protocol: Activity Type Activity Date Activity User E-sign Co-sign Detail Recorded Client Recorded Date Recorded By Document 03/23/22 11:01 SOLOMON [id number] 03/23/22 11:03 SOLOMON 03/23/22 11:01 Wound Center Nurse 1 #1 right upper back -Current Size (cm) - Length 0.2 -Current Size (cm) - Width 0.3 -Current Size (cm) - Depth 0.2 -Total Square Cm 0.06 -Exudate Amt Small -Exudate Type Serosanguineous -Wound Margin Distinct, Outline Attached -Granulation Amt Small (1-33%) -Granulation Quality [place] -Necrosis Amt Small (1-33%) -Necrotic Tissue Type Adherent Slough -Texture (Valarie-wound Skin Appearance) Assessed, Scarring -Moisture (Valarie-wound Skin Appearance) No Abnormality, Assessed -Color (Valarie-wound Skin Appearance) No Abnormality, Assessed -Temperature (Valarie-wound Skin No Abnormality Appearance) (Pt Warm) -Tenderness on Palpation (Valarie-wound No Skin Appearance) -Ulcer Cleansing Rinsed/ Irrigated with Saline -Foul Odor after Cleansing No -Anesthetic Used 5% Lidocaine Gel WC - Nurse 2 - General Ulcer CM Notes Start: 03/23/22 11:01 Freq: Status: Active Protocol: Activity Type Activity Date Activity User E-sign Co-sign Detail Recorded Client Recorded Date Recorded By Document 03/23/22 11:06 MW [id number] 03/23/22 11:08 MW 03/23/22 11:06 Wound Center Nurse 2 -Time 11:06 -Correct Patient Yes -Correct Side, Site, Position Yes -Correct Procedure Yes -Procedure Performed Yes -Type of Procedure Incision & Drainage -Clinical Debridement Subcutaneous -Tissue Removed Subcutaneous -Post Debridement (cm) - Length 0.5 -Post Debridement (cm) - Width 0.4 -Post Debridement (cm) - Depth 0.3 -Total Square (Post) (cm) 0.20 -Area of Debridement (cm) - Length 0.5 -Area of Debridement (cm) - Width 0.4 -Total Square (Area) (cm) 0.20 -Tunneling No -Undermining/Tunneling Yes -Undermining/Tunneling Starts (O'clock 6 ) -Undermining/Tunneling Ends (O'clock) 12 -Maximum Distance (cm) 0.2 -Circular Undermining No -Wound/Ulcer Outcome Not Healed -Ulcer Cleansing Rinsed/ Irrigated with Saline -Foul Odor after Cleansing No -Bioengineered Tissue No -Bleeding Controlled with Pressure -Treatment Response Procedure Tolerated Well -Offloading No -Debridement - Subq, 1st 20sq cm Yes Pain Scale: 0-10 Numeric Is Patient Pain Free? Yes MIGUEL ANGEL - Nurse 3 - General Ulcer D/C NN Start: 03/23/22 11:01 Freq: Status: Active Protocol: Activity Type Activity Date Activity User E-sign Co-sign Detail Recorded Client Recorded Date Recorded By Document 03/23/22 11:08 [id number] 03/23/22 11:09 03/23/22 11:08 Wound Care Nurse 3 #1 right upper back -Ulcer Cleansing Rinsed/ Irrigated with Saline -Foul Odor after Cleansing No -Negative Pressure Wound Therapy N/A -Primary Dressing Applied Promogran Adina Matter -Primary Dressing Covered/Secured with Dry Gauze, Secured with Tape -Promogran Adina Matter 1 Treatment Response Procedure Tolerated Well Pain Scale: 0-10 Numeric Is Patient Pain Free? Yes Teaching: Wound Center Dressing Your Wound -Person Taught Patient,Family -Teaching Method Discussion -Response to teaching Verbalize understanding WC - Visit Discharge Discharge Condition Stable Ambulatory Status Ambulatory Transportation Private Auto Accompanied by family Medication Reconcilliation completed & No provided to patient/care provider Clinical Summary of Care Provided Yes Assessment/Plan Assessment/Plan (1) Heart failure with reduced ejection fraction: CODE(S): I50.20 - Unspecified systolic (congestive) heart failure (2) Ventricular fibrillation: CODE(S): I49.01 - Ventricular fibrillation (3) Surgical wound, non healing: CODE(S): T81.89XA - Other complications of procedures, not elsewhere classified, initial encounter PLAN: Plan Wash area with antibacterial soap and pack with Adina moistened cover with gauze dressing and tape every day Cultures were positive we will start her on doxycycline twice a day for 14 days Follow-up in 1 week
[2022-03-30 10:06] VITALS: BP 125/51; PULSE 83; RESP 24; TEMP 36.3
--- NOTE | 2022-03-30 12:57 | PCM.WC.PN ---
History of Present Illness Date of Service: 03/30/22 Chief Complaint: Follow-up on open wound right adjacent to spine mid back. History of Wound: 71-year-old white female that has many comorbidities and problems she has liver cancer and lung cancer surgery she is diabetic controlled with diet she has history severe COPD congestive heart failure and many other problems. Patient had a biopsy of a lump on her back removed in around June of this last year by Dr. Werner and it never healed. Progress of Wound: Undermining has improved and is now 7-10. Still gets some slough off the wound base. We will continue using the Promogran and patient is finishing up her antibiotic therapy. Subjective Subjective Patient is tolerant to care Objective Data Objective Data No increased signs of infection or odor we will continue with same treatment. Vital Signs: Vital Signs Temp Pulse Resp BP 97.4 F L 83 24 H 125/51 H 03/30/22 10:06 03/30/22 10:06 03/30/22 10:06 03/30/22 10:06 Physical Exam Const oriented x3 General Appearance: cooperative Exam Limitations: no limitations HEENT normocephalic Head and Scalp: normal to inspection Face and Sinus: normal facial exam Nose: external nose normal General Ear: hearing grossly impaired External Ear: external ears normal Mouth: oral and palatal mucosa normal Eyes PERRL General Eye: normal appearance of both eyes Neck full ROM General: normal visual inspection Resp normal respiratory effort Effort and Inspection: able to speak in complete sentences Auscultation: clear to auscultation bilaterally Cardio regular rate and regular rhythm Palpation: normal PMI Rate: regular rate Rhythm: regular rhythm GI Auscultation: normoactive bowel sounds Palpation: soft and no hepatosplenomegaly external exam normal Back/Spine Cervical Spine: cervical ROM normal Thoracic Spine / Upper Back: normal to inspection Lumbar Spine / Lower Back: normal to inspection Extremity normal to inspection General Extremity: normal exam except as noted Skin Skin Narrative: Postop puncture wound from a biopsy done in June 2021 Wounds: wounds noted Neuro oriented x3 Psych Appearance: grossly normal Speech: normal speech Thought Content: normal thought content Judgement: judgement good Debridement Note Debridement Note Wound debrided: Right upper back surgical site dehisced Laterality: Right Type of Debridement: Excisional debridement Anesthesia Used: 5% Lidocaine Gel Depth: in the subcutaneous layer Percentage of wound debrided: 100 Instrument Used: 3mm curette Tissue Removed: Slough Severity: Fat Layer Exposed Amount of bleeding with debridement: Mild Bleeding Controlled with: Compression and gauze Patient tolerated procedure: Patient tolerated procedure well Post-Debridement Measurements and Additional Note: Post-Debridement Measurements/Treatment MIGUEL ANGEL - Nurse 1 - General Ulcer Assessment Start: 03/23/22 11:01 Freq: Status: Active Protocol: YOLA Activity Type Activity Date Activity User E-sign Co-sign Detail Recorded Client Recorded Date Recorded By Document 03/23/22 11:01 KR [id number] 03/23/22 11:03 KR Document 03/30/22 10:06 DL [id number] 03/30/22 10:12 DL 03/23/22 03/30/22 11:01 10:06 WC - Today's Visit Information Type of service Follow-up Visit Follow-up Visit (Physician/MANAGER STRATEGIC DEVELOPMENT (Physician/MANAGER STRATEGIC DEVELOPMENT ) ) Arrival Mode Ambulatory Ambulatory Transfer Assistance None Patient Identification Verified (Name & Yes Yes ) Patient Requires Transmission-Based No Precautions Vital Signs Temperature (97.8 F-99.1 F) 97.0 F L 97.4 F L Temperature Source Temporal Temporal Pulse Rate (60-100) 61 83 Pulse Location Monitor Monitor Respiratory Rate (12-18) 24 H Respiratory rate source Observation Blood Pressure (90/60-120/80) 119/49 L 125/51 H Blood Pressure Mean (mm Hg) 72 75 Source Monitor Monitor Position Semi-Fowlers Blood Pressure Location Left Arm History Since Last Visit- (Skip if this is Patient's initial visit) Have you changed medications since your No No last visit? Any new allergies or adverse reactions No No Had a fall/change in ADL's that may No No increase risk of falls Signs or symptoms of abuse and/or No No neglect since last visit Have you been in the hospital since your No No last visit? Has dressing in place as prescribed Yes Yes Has compression in place as prescribed N/A N/A Has offloadiing in place as prescribed N/A N/A Experienced any changes in pain level or No Yes management Left Footwear Regular Shoe Right Footwear Regular Shoe Pain Scale: 0-10 Numeric Is Patient Pain Free? Yes Yes MIGUEL ANGEL [facility] Nurse 1 - General Ulcer Measurement Start: 03/23/22 11:01 Freq: Status: Active Protocol: Activity Type Activity Date Activity User E-sign Co-sign Detail Recorded Client Recorded Date Recorded By Document 03/23/22 11:01 KR [id number] 03/23/22 11:03 KR Document 03/30/22 10:06 DL [id number] 03/30/22 10:12 DL Edit Result 03/30/22 10:06 DL (1) [id number] 03/30/22 10:13 DL (1) #1 right upper back - Maximum Distance #2 (cm) => 0.2 - Circular Undermining => Yes 03/23/22 03/30/22 11:01 10:06 Wound Center Nurse 1 #1 right upper back -Current Size (cm) - Length 0.2 0.5 -Current Size (cm) - Width 0.3 0.5 -Current Size (cm) - Depth 0.2 0.5 -Total Square Cm 0.06 0.25 -Photo Taken No -Maximum Distance #2 (cm) 0.2 -Circular Undermining Yes -Exudate Amt Small None Present -Exudate Type Serosanguineous -Wound Margin Distinct, Distinct, Outline Outline Attached Attached -Granulation Amt Small (1-33%) None Present (0 %) -Granulation Quality [place] -Necrosis Amt Small (1-33%) Large (67-100%) -Necrotic Tissue Type Adherent Slough Adherent Slough -Structure Exposed N/A -Texture (Valarie-wound Skin Appearance) Assessed, Scarring Scarring -Moisture (Valarie-wound Skin Appearance) No Abnormality, No Abnormality Assessed -Color (Valarie-wound Skin Appearance) No Abnormality, Ecchymosis Assessed -Temperature (Valarie-wound Skin No Abnormality No Abnormality Appearance) (Pt Warm) (Pt Warm) -Tenderness on Palpation (Valarie-wound No No Skin Appearance) -Ulcer Cleansing Rinsed/ Rinsed/ Irrigated with Irrigated with Saline Saline -Foul Odor after Cleansing No No -Anesthetic Used 5% Lidocaine 5% Lidocaine Gel Gel WC - Nurse 2 - General Ulcer CM Notes Start: 03/23/22 11:01 Freq: Status: Active Protocol: Activity Type Activity Date Activity User E-sign Co-sign Detail Recorded Client Recorded Date Recorded By Document 03/23/22 11:06 MW [id number] 03/23/22 11:08 MW Document 03/30/22 10:20 MW [id number] 03/30/22 10:23 MW 03/23/22 03/30/22 11:06 10:20 Wound Center Nurse 2 #1 right upper back -Time 11:06 10:20 -Correct Patient Yes Yes -Correct Side, Site, Position Yes Yes -Correct Procedure Yes Yes -Procedure Performed Yes Yes -Type of Procedure Incision & Debridement Drainage -Clinical Debridement Subcutaneous Subcutaneous -Tissue Removed Subcutaneous Subcutaneous -Post Debridement (cm) - Length 0.5 0.4 -Post Debridement (cm) - Width 0.4 0.4 -Post Debridement (cm) - Depth 0.3 0.2 -Total Square (Post) (cm) 0.20 0.16 -Area of Debridement (cm) - Length 0.5 0.4 -Area of Debridement (cm) - Width 0.4 0.4 -Total Square (Area) (cm) 0.20 0.16 -Tunneling No No -Undermining/Tunneling Yes No -Undermining/Tunneling Starts (O'clock 6 ) -Undermining/Tunneling Ends (O'clock) 12 -Maximum Distance (cm) 0.2 -Circular Undermining No No -Wound/Ulcer Outcome Not Healed Not Healed -Ulcer Cleansing Rinsed/ Wound Cleanser Irrigated with Saline -Foul Odor after Cleansing No No -Bioengineered Tissue No No -Bleeding Controlled with Pressure Pressure -Treatment Response Procedure Procedure Tolerated Well Tolerated Well -Offloading No No -Debridement - Subq, 1st 20sq cm Yes Yes Pain Scale: 0-10 Numeric Is Patient Pain Free? Yes Yes WC - Nurse 3 - General Ulcer D/C NN Start: 03/23/22 11:01 Freq: Status: Active Protocol: Activity Type Activity Date Activity User E-sign Co-sign Detail Recorded Client Recorded Date Recorded By Document 03/23/22 11:08 [id number] 03/23/22 11:09 MW Document 03/30/22 10:24 MW [id number] 03/30/22 10:28 MW 03/23/22 03/30/22 11:08 10:24 Wound Care Nurse 3 #1 right upper back -Ulcer Cleansing Rinsed/ Rinsed/ Irrigated with Irrigated with Saline Saline -Foul Odor after Cleansing No No -Negative Pressure Wound Therapy N/A N/A -Primary Dressing Applied Promogran NonAdherent Adina Matter Contact Layer, Promogran Adina Matter -Primary Dressing Covered/Secured with Dry Gauze, Dry Gauze, Secured with Secured with Tape Tape -Promogran Adina Matter 1 1 Treatment Response Procedure Procedure Tolerated Well Tolerated Well Pain Scale: 0-10 Numeric Is Patient Pain Free? Yes Yes Teaching: Wound Center Dressing Your Wound -Person Taught Patient,Family Patient,Family -Teaching Method Discussion Discussion -Response to teaching Verbalize Verbalize understanding understanding WC - Visit Discharge Discharge Condition Stable Stable Ambulatory Status Ambulatory Ambulatory Transportation Private Auto Private Auto Accompanied by family sister Medication Reconcilliation completed & No No provided to patient/care provider Clinical Summary of Care Provided Yes Yes Assessment/Plan Assessment/Plan (1) Heart failure with reduced ejection fraction: CODE(S): I50.20 - Unspecified systolic (congestive) heart failure (2) Ventricular fibrillation: CODE(S): I49.01 - Ventricular fibrillation (3) Surgical wound, non healing: CODE(S): T81.89XA - Other complications of procedures, not elsewhere classified, initial encounter PLAN: Plan Wash area with antibacterial soap and pack with Adina moistened cover with gauze dressing and tape every day Cultures were positive we will start her on doxycycline twice a day for 14 days Follow-up in 1 week
[2022-04-13 09:33] VITALS: BP 110/71; PULSE 85; TEMP 36.6
--- NOTE | 2022-04-13 10:34 | PCM.WC.PN ---
History of Present Illness Date of Service: 04/13/22 Chief Complaint: Follow-up on open wound right adjacent to spine mid back. History of Wound: 71-year-old white female that has many comorbidities and problems she has liver cancer and lung cancer surgery she is diabetic controlled with diet she has history severe COPD congestive heart failure and many other problems. Patient had a biopsy of a lump on her back removed in around June of this last year by Dr. Werner and it never healed. Progress of Wound: Undermining has improved and is now 7-10. Still gets some slough off the wound base. We will continue using the Adina and patient is finishing up her antibiotic therapy. Patient was just hospitalized for COPD exacerbation. Patient finishes her chemo this week. We will apply for a wound VAC to see if we can close the hole. Subjective Subjective Patient still short of breath but appears agreeable to plan Objective Data Objective Data Wound is about the same measurements are about the same still has depth organ to try a wound VAC next week and see if we can get that on her. We will apply for the snap VAC Vital Signs: Vital Signs Temp Pulse Resp BP 97.8 F 85 24 H 110/71 04/13/22 09:33 04/13/22 09:33 03/30/22 10:06 04/13/22 09:33 Lab / Micro Data Attestation: I reviewed the patient's lab results. Debridement Note Debridement Note Wound debrided: Upper back surgical wound nonhealing Type of Debridement: Excisional debridement Anesthesia Used: 5% Lidocaine Gel Depth: in the subcutaneous layer Percentage of wound debrided: 100 Instrument Used: 3mm curette Tissue Removed: Fibrin Severity: Fat Layer Exposed Amount of bleeding with debridement: None Patient tolerated procedure: Patient tolerated procedure well Post-Debridement Measurements and Additional Note: Post-Debridement Measurements/Treatment MIGUEL ANGEL - Nurse 1 - General Ulcer Assessment Start: 03/23/22 11:01 Freq: Status: Active Protocol: YOLA Activity Type Activity Date Activity User E-sign Co-sign Detail Recorded Client Recorded Date Recorded By Document 03/23/22 11:01 KR [id number] 03/23/22 11:03 KR Document 03/30/22 10:06 DL [id number] 03/30/22 10:12 DL Document 04/13/22 09:33 KR [id number] 04/13/22 09:37 KR 03/23/22 03/30/22 04/13/22 11:01 10:06 09:33 - Today's Visit Information Type of service Follow-up Visit Follow-up Visit Follow-up Visit (Physician/ORGANIC CHEMISTRY PROFESSOR (Physician/ORGANIC CHEMISTRY PROFESSOR (Physician/ORGANIC CHEMISTRY PROFESSOR ) ) ) Arrival Mode Ambulatory Ambulatory Ambulatory, Walker Transfer Assistance None Patient Identification Verified (Name & Yes Yes Yes ) Patient Requires Transmission-Based No Precautions Vital Signs Temperature (97.8 F-99.1 F) 97.0 F L 97.4 F L 97.8 F Temperature Source Temporal Temporal Temporal Pulse Rate (60-100) 61 83 85 Pulse Location Monitor Monitor Monitor Respiratory Rate (12-18) 24 H Respiratory rate source Observation Blood Pressure (90/60-120/80) 119/49 L 125/51 H 110/71 Blood Pressure Mean (mm Hg) 72 75 84 Source Monitor Monitor Monitor Position Semi-Fowlers Semi-Fowlers Blood Pressure Location Left Arm Left Arm History Since Last Visit- (Skip if this is Patient's initial visit) Have you changed medications since your No No No last visit? Any new allergies or adverse reactions No No No Had a fall/change in ADL's that may No No No increase risk of falls Signs or symptoms of abuse and/or No No No neglect since last visit Have you been in the hospital since your No No No last visit? Has dressing in place as prescribed Yes Yes Yes Has compression in place as prescribed N/A N/A N/A Has offloadiing in place as prescribed N/A N/A N/A Experienced any changes in pain level or No Yes No management Left Footwear Regular Shoe Regular Shoe Right Footwear Regular Shoe Regular Shoe Pain Scale: 0-10 Numeric Is Patient Pain Free? Yes Yes Yes - Nurse 1 - General Ulcer Measurement Start: 03/23/22 11:01 Freq: Status: Active Protocol: Activity Type Activity Date Activity User E-sign Co-sign Detail Recorded Client Recorded Date Recorded By Document 03/23/22 11:01 KR [id number] 03/23/22 11:03 KR Document 03/30/22 10:06 DL [id number] 03/30/22 10:12 DL Edit Result 03/30/22 10:06 DL (1) [id number] 03/30/22 10:13 DL Document 04/13/22 09:33 KR [id number] 04/13/22 09:37 KR (1) #1 right upper back - Maximum Distance #2 (cm) => 0.2 - Circular Undermining => Yes 03/23/22 03/30/22 04/13/22 11:01 10:06 09:33 Wound Center Nurse 1 #1 right upper back -Current Size (cm) - Length 0.2 0.5 0.2 -Current Size (cm) - Width 0.3 0.5 0.2 -Current Size (cm) - Depth 0.2 0.5 0.2 -Total Square Cm 0.06 0.25 0.04 -Photo Taken No -Undermining/Tunneling Starts (O'clock 7 ) -Undermining/Tunneling Ends (O'clock) 10 -Maximum Distance (cm) 0.2 -Maximum Distance #2 (cm) 0.2 -Circular Undermining Yes -Exudate Amt Small None Present Small -Exudate Type Serosanguineous Serosanguineous -Wound Margin Distinct, Distinct, Distinct, Outline Outline Outline Attached Attached Attached -Granulation Amt Small (1-33%) None Present (0 Small (1-33%) %) -Granulation Quality [place] -Necrosis Amt Small (1-33%) Large (67-100%) Small (1-33%) -Necrotic Tissue Type Adherent Slough Adherent Slough Adherent Slough -Structure Exposed N/A -Texture (Valarie-wound Skin Appearance) Assessed, Scarring Assessed, Scarring Scarring -Moisture (Valarie-wound Skin Appearance) No Abnormality, No Abnormality No Abnormality, Assessed Assessed -Color (Valarie-wound Skin Appearance) No Abnormality, Ecchymosis No Abnormality, Assessed Assessed -Temperature (Valarie-wound Skin No Abnormality No Abnormality No Abnormality Appearance) (Pt Warm) (Pt Warm) (Pt Warm) -Tenderness on Palpation (Valarie-wound No No No Skin Appearance) -Ulcer Cleansing Rinsed/ Rinsed/ Rinsed/ Irrigated with Irrigated with Irrigated with Saline Saline Saline -Foul Odor after Cleansing No No No -Anesthetic Used 5% Lidocaine 5% Lidocaine 4% Lidocaine Gel Gel Solution WC - Nurse 2 - General Ulcer CM Notes Start: 03/23/22 11:01 Freq: Status: Active Protocol: Activity Type Activity Date Activity User E-sign Co-sign Detail Recorded Client Recorded Date Recorded By Document 03/23/22 11:06 MW [id number] 03/23/22 11:08 MW Document 03/30/22 10:20 MW [id number] 03/30/22 10:23 MW Document 04/13/22 09:51 MW [id number] 04/13/22 09:56 MW 03/23/22 03/30/22 04/13/22 11:06 10:20 09:51 Wound Center Nurse 2 #1 right upper back -Time 11:06 10:20 09:52 -Correct Patient Yes Yes Yes -Correct Side, Site, Position Yes Yes Yes -Correct Procedure Yes Yes Yes -Procedure Performed Yes Yes Yes -Type of Procedure Incision & Debridement Debridement Drainage -Clinical Debridement Subcutaneous Subcutaneous Subcutaneous -Tissue Removed Subcutaneous Subcutaneous Subcutaneous -Post Debridement (cm) - Length 0.5 0.4 0.3 -Post Debridement (cm) - Width 0.4 0.4 0.5 -Post Debridement (cm) - Depth 0.3 0.2 0.2 -Total Square (Post) (cm) 0.20 0.16 0.15 -Area of Debridement (cm) - Length 0.5 0.4 0.3 -Area of Debridement (cm) - Width 0.4 0.4 0.5 -Total Square (Area) (cm) 0.20 0.16 0.15 -Tunneling No No No -Undermining/Tunneling Yes No No -Undermining/Tunneling Starts (O'clock 6 ) -Undermining/Tunneling Ends (O'clock) 12 -Maximum Distance (cm) 0.2 -Circular Undermining No No No -Wound/Ulcer Outcome Not Healed Not Healed Not Healed -Ulcer Cleansing Rinsed/ Wound Cleanser Rinsed/ Irrigated with Irrigated with Saline Saline -Foul Odor after Cleansing No No No -Bioengineered Tissue No No No -Bleeding Controlled with Pressure Pressure Pressure -Treatment Response Procedure Procedure Procedure Tolerated Well Tolerated Well Tolerated Well -Offloading No No No -Debridement - Subq, 1st 20sq cm Yes Yes Yes Pain Scale: 0-10 Numeric Is Patient Pain Free? Yes Yes Yes - Nurse 3 - General Ulcer D/C NN Start: 03/23/22 11:01 Freq: Status: Active Protocol: Activity Type Activity Date Activity User E-sign Co-sign Detail Recorded Client Recorded Date Recorded By Document 03/23/22 11:08 MW [id number] 03/23/22 11:09 MW Document 03/30/22 10:24 MW [id number] 03/30/22 10:28 MW 03/23/22 03/30/22 11:08 10:24 Wound Care Nurse 3 #1 right upper back -Ulcer Cleansing Rinsed/ Rinsed/ Irrigated with Irrigated with Saline Saline -Foul Odor after Cleansing No No -Negative Pressure Wound Therapy N/A N/A -Primary Dressing Applied Promogran NonAdherent Adina Matter Contact Layer, Promogran Adina Matter -Primary Dressing Covered/Secured with Dry Gauze, Dry Gauze, Secured with Secured with Tape Tape -Promogran Adina Matter 1 1 Treatment Response Procedure Procedure Tolerated Well Tolerated Well Pain Scale: 0-10 Numeric Is Patient Pain Free? Yes Yes Teaching: Wound Center Dressing Your Wound -Person Taught Patient,Family Patient,Family -Teaching Method Discussion Discussion -Response to teaching Verbalize Verbalize understanding understanding WC - Visit Discharge Discharge Condition Stable Stable Ambulatory Status Ambulatory Ambulatory Transportation Private Auto Private Auto Accompanied by family sister Medication Reconcilliation completed & No No provided to patient/care provider Clinical Summary of Care Provided Yes Yes Assessment/Plan Assessment/Plan (1) Heart failure with reduced ejection fraction: CODE(S): I50.20 - Unspecified systolic (congestive) heart failure (2) Ventricular fibrillation: CODE(S): I49.01 - Ventricular fibrillation (3) Surgical wound, non healing: CODE(S): T81.89XA - Other complications of procedures, not elsewhere classified, initial encounter PLAN: Plan Wash area with antibacterial soap and pack with Adina moistened cover with gauze dressing and tape every day Cultures were positive continue and finish the doxycycline twice a day for 14 days Follow-up in 1 week. We will order a wound VAC this week
== END 2022-04-15 23:59 | disposition home or self-care (01) ==
LOC: WC 10:00
PROVIDERS: PCP Internal Medicine; Visit Provider Nurse Practitioner
DX: T81.89XA Other complications of procedures, not elsewhere classified, initial encounter (principal); C34.90 Malignant neoplasm of unspecified part of unspecified bronchus or lung; J44.9 Chronic obstructive pulmonary disease, unspecified; I50.20 Unspecified systolic (congestive) heart failure; I49.01 Ventricular fibrillation
CPT/HCPCS: 11042

== ENCOUNTER 2022-05-11 10:00 | Outpatient (RCR) | payer MEDICARE, OTHER, SELFPAY ==
[2017-10-05 11:04] VITALS: BMI 28.2
[2022-04-16 01:28] VITALS: BP 110/71; PULSE 85; RESP 24; TEMP 36.6
[2022-04-20 09:51] VITALS: BP 83/55; PULSE 112; TEMP 36.4
--- NOTE | 2022-04-20 12:57 | PN.PCM_ITS ---
History of Present Illness Date of Service: 04/20/22 Chief Complaint: Follow-up on open wound right adjacent to spine mid back. History of Wound: 71-year-old white female that has many comorbidities and problems she has liver cancer and lung cancer surgery she is diabetic controlled with diet she has history severe COPD congestive heart failure and many other problems. Patient had a biopsy of a lump on her back removed in around June of this last year by Dr. Werner and it never healed. Progress of Wound: The wound has been basically at a standstill we did culture her she did have bacteria with put her on antibiotics at this point we are starting a snap VAC on her today to see if that will help. Patient is a smoker and has been in the hospital already for her COPD with exacerbation Subjective Subjective Patient does not understand why it is taking so long to heal. Nurse talk to her about your she needs to help with eating better and the smoking and all that Objective Data Objective Data Treatments are the same and the undermining is the same. Vital Signs: Vital Signs Temp Pulse Resp BP 97.5 F L 112 H 24 H 83/55 L 04/20/22 09:51 04/20/22 09:51 04/16/22 01:28 04/20/22 09:51 Physical Exam Const oriented x3 General Appearance: cooperative Exam Limitations: no limitations HEENT normocephalic Head and Scalp: normal to inspection Face and Sinus: normal facial exam Nose: external nose normal General Ear: hearing grossly impaired External Ear: external ears normal Mouth: oral and palatal mucosa normal Eyes PERRL General Eye: normal appearance of both eyes Neck full ROM General: normal visual inspection Resp normal respiratory effort Effort and Inspection: able to speak in complete sentences Auscultation: clear to auscultation bilaterally Cardio regular rate and regular rhythm Palpation: normal PMI Rate: regular rate Rhythm: regular rhythm GI Auscultation: normoactive bowel sounds Palpation: soft and no hepatosplenomegaly external exam normal Back/Spine Cervical Spine: cervical ROM normal Thoracic Spine / Upper Back: normal to inspection Lumbar Spine / Lower Back: normal to inspection Extremity normal to inspection General Extremity: normal exam except as noted Skin Skin Narrative: Postop puncture wound from a biopsy done in June 2021 Wounds: wounds noted Neuro oriented x3 Psych Appearance: grossly normal Speech: normal speech Thought Content: normal thought content Judgement: judgement good Debridement Note Debridement Note Wound debrided: Right upper back Type of Debridement: Excisional debridement Anesthesia Used: 5% Lidocaine Gel Depth: in the subcutaneous layer Percentage of wound debrided: 100 Instrument Used: 3mm curette Tissue Removed: Slough Severity: Fat Layer Exposed Amount of bleeding with debridement: None Patient tolerated procedure: Patient tolerated procedure well Post-Debridement Measurements and Additional Note: Post-Debridement Measurements/Treatment MIGUEL ANGEL - Nurse 1 - General Ulcer Assessment Start: 04/20/22 09:50 Freq: Status: Active Protocol: YOLA Activity Type Activity Date Activity User E-sign Co-sign Detail Recorded Client Recorded Date Recorded By Document 04/20/22 09:51 SOLOMON [id number] 04/20/22 09:56 SOLOMON 04/20/22 09:51 MIGUEL ANGEL - Today's Visit Information Type of service Follow-up Visit (Physician/LOADER OPERATOR/GROUND LEADER ) Arrival Mode Ambulatory Patient Identification Verified (Name & Yes ) Vital Signs Temperature (97.8 F-99.1 F) 97.5 F L Temperature Source Temporal Pulse Rate (60-100) 112 H Pulse Location Monitor Blood Pressure (90/60-120/80) 83/55 L Blood Pressure Mean (mm Hg) 64 Source Monitor Position Sitting Blood Pressure Location Right Arm History Since Last Visit- (Skip if this is Patient's initial visit) Have you changed medications since your No last visit? Any new allergies or adverse reactions No Had a fall/change in ADL's that may No increase risk of falls Signs or symptoms of abuse and/or No neglect since last visit Have you been in the hospital since your No last visit? Has dressing in place as prescribed Yes Has compression in place as prescribed N/A Has offloadiing in place as prescribed N/A Experienced any changes in pain level or No management Left Footwear Regular Shoe Right Footwear Regular Shoe Pain Scale: 0-10 Numeric Is Patient Pain Free? Yes - Nurse 1 - General Ulcer Measurement Start: 04/20/22 09:50 Freq: Status: Active Protocol: Activity Type Activity Date Activity User E-sign Co-sign Detail Recorded Client Recorded Date Recorded By Document 04/20/22 09:51 SOLOMON [id number] 04/20/22 09:56 SOLOMON 04/20/22 09:51 Wound Center Nurse 1 #1 right upper back -Current Size (cm) - Length 0.3 -Current Size (cm) - Width 0.3 -Current Size (cm) - Depth 0.2 -Total Square Cm 0.09 -Undermining/Tunneling Starts (O'clock 6 ) -Undermining/Tunneling Ends (O'clock) 9 -Maximum Distance (cm) 0.2 -Exudate Amt Small -Exudate Type Serosanguineous -Wound Margin Distinct, Outline Attached -Granulation Amt Small (1-33%) -Granulation Quality [place] -Necrosis Amt Small (1-33%) -Necrotic Tissue Type Adherent Slough -Texture (Valarie-wound Skin Appearance) Assessed, Scarring -Moisture (Valarie-wound Skin Appearance) No Abnormality, Assessed -Color (Valarie-wound Skin Appearance) No Abnormality, Assessed -Temperature (Valarie-wound Skin No Abnormality Appearance) (Pt Warm) -Tenderness on Palpation (Valarie-wound No Skin Appearance) -Ulcer Cleansing Rinsed/ Irrigated with Saline -Foul Odor after Cleansing No -Anesthetic Used 5% Lidocaine Gel WC - Nurse 2 - General Ulcer CM Notes Start: 04/20/22 09:50 Freq: Status: Active Protocol: Activity Type Activity Date Activity User E-sign Co-sign Detail Recorded Client Recorded Date Recorded By Document 04/20/22 10:06 MW [id number] 04/20/22 10:11 MW 04/20/22 10:06 Wound Center Nurse 2 -Time 10:06 -Correct Patient Yes -Correct Side, Site, Position Yes -Correct Procedure Yes -Procedure Performed Yes -Type of Procedure Debridement -Clinical Debridement Subcutaneous -Tissue Removed Subcutaneous -Post Debridement (cm) - Length 0.3 -Post Debridement (cm) - Width 0.4 -Post Debridement (cm) - Depth 0.2 -Total Square (Post) (cm) 0.12 -Area of Debridement (cm) - Length 0.3 -Area of Debridement (cm) - Width 0.4 -Total Square (Area) (cm) 0.12 -Tunneling No -Undermining/Tunneling Yes -Undermining/Tunneling Starts (O'clock 6 ) -Undermining/Tunneling Ends (O'clock) 9 -Maximum Distance (cm) 0.2 -Circular Undermining No -Wound/Ulcer Outcome Not Healed -Ulcer Cleansing Rinsed/ Irrigated with Saline -Foul Odor after Cleansing No -Bioengineered Tissue No -Bleeding Controlled with Pressure -Treatment Response Procedure Tolerated Well -Offloading No -Debridement - Subq, 1st 20sq cm Yes Pain Scale: 0-10 Numeric Is Patient Pain Free? Yes - Nurse 3 - General Ulcer D/C NN Start: 04/20/22 09:50 Freq: Status: Active Protocol: Activity Type Activity Date Activity User E-sign Co-sign Detail Recorded Client Recorded Date Recorded By Document 04/20/22 12:07 PAWAN [id number] 04/20/22 12:08 PAWAN 04/20/22 12:07 Wound Care Nurse 3 #1 right upper back -Ulcer Cleansing Rinsed/ Irrigated with Saline -Foul Odor after Cleansing No -Negative Pressure Wound Therapy N/A -NPWT Application Charge NPWT & Debridement (nc ) Pain Scale: 0-10 Numeric Is Patient Pain Free? Yes WC - Visit Discharge Discharge Condition Stable Ambulatory Status Ambulatory Transportation Private Auto Medication Reconcilliation completed & Yes provided to patient/care provider Clinical Summary of Care Provided Yes Assessment/Plan Assessment/Plan (1) Heart failure with reduced ejection fraction: CODE(S): I50.20 - Unspecified systolic (congestive) heart failure (2) Ventricular fibrillation: CODE(S): I49.01 - Ventricular fibrillation (3) Surgical wound, non healing: CODE(S): T81.89XA - Other complications of procedures, not elsewhere classified, initial encounter PLAN: Plan We will apply snap VAC to area and discussed how to fix if suction leaks. Follow-up in 1 week
[2022-04-27 10:09] VITALS: BP 114/73; PULSE 110; RESP 16; TEMP 36.1
--- NOTE | 2022-04-27 11:17 | PN.PCM_ITS ---
History of Present Illness Date of Service: 04/27/22 Chief Complaint: Follow-up on open wound right adjacent to spine mid back. History of Wound: 71-year-old white female that has many comorbidities and problems she has liver cancer and lung cancer surgery she is diabetic controlled with diet she has history severe COPD congestive heart failure and many other problems. Patient had a biopsy of a lump on her back removed in around June of this last year by Dr. Werner and it never healed. Progress of Wound: The wound has been basically at a standstill we did culture her she did have bacteria with put her on antibiotics at this point we are starting a snap VAC on her today to see if that will help. Patient is a smoker and has been in the hospital already for her COPD with exacerbation Subjective Subjective Patient is reluctant to get the snap VAC put back on because it fell off so easily but I have nothing else to offer her except for packing which is not working. Patient is worried because she sees pain management in the next day or 2 about her back she has compression fractures. Objective Data Objective Data We will continue using the snap VAC as best we can and reapplying it so it will stay longer on her back Vital Signs: Vital Signs Temp Pulse Resp BP O2 Del Method 96.9 F L 110 H 16 114/73 Room Air 04/27/22 10:09 04/27/22 10:09 04/27/22 10:09 04/27/22 10:09 04/27/22 10:09 Oxygen Delivery Method Room Air Lab / Micro Data Attestation: I reviewed the patient's lab results. Micro: Microbiology 04/20/22 10:15 Wound Abcess - Back Gram Stain - Final 04/20/22 10:15 Wound Abcess - Back Wound Culture - Final Staphylococcus aureus Coag Negative Staph 04/20/22 10:15 Wound Abcess - Back Anaerobic Culture - Final No anaerobic bacteria isolated. Physical Exam Const oriented x3 General Appearance: cooperative Exam Limitations: no limitations HEENT normocephalic Head and Scalp: normal to inspection Face and Sinus: normal facial exam Nose: external nose normal General Ear: hearing grossly impaired External Ear: external ears normal Mouth: oral and palatal mucosa normal Eyes PERRL General Eye: normal appearance of both eyes Neck full ROM General: normal visual inspection Resp normal respiratory effort Effort and Inspection: able to speak in complete sentences Auscultation: clear to auscultation bilaterally Cardio regular rate and regular rhythm Palpation: normal PMI Rate: regular rate Rhythm: regular rhythm GI Auscultation: normoactive bowel sounds Palpation: soft and no hepatosplenomegaly external exam normal Back/Spine Cervical Spine: cervical ROM normal Thoracic Spine / Upper Back: normal to inspection Lumbar Spine / Lower Back: normal to inspection Extremity normal to inspection General Extremity: normal exam except as noted Skin Skin Narrative: Postop puncture wound from a biopsy done in June 2021 Wounds: wounds noted Neuro oriented x3 Psych Appearance: grossly normal Speech: normal speech Thought Content: normal thought content Judgement: judgement good Debridement Note Debridement Note Wound debrided: Right upper back surgical wound Type of Debridement: Excisional debridement Anesthesia Used: 5% Lidocaine Gel Depth: in the subcutaneous layer Percentage of wound debrided: 100 Instrument Used: 3mm curette Tissue Removed: Fibrin devitalized tissue Severity: Fat Layer Exposed Amount of bleeding with debridement: None Patient tolerated procedure: Patient tolerated procedure well Post-Debridement Measurements and Additional Note: Post-Debridement Measurements/Treatment - Nurse 1 - General Ulcer Assessment Start: 04/20/22 09:50 Freq: Status: Active Protocol: MIGUEL [email or web address] Activity Type Activity Date Activity User E-sign Co-sign Detail Recorded Client Recorded Date Recorded By Document 04/20/22 09:51 [id number] 04/20/22 09:56 Document 04/27/22 10:09 [facility] Desktop 04/27/22 10:16 [facility] 04/20/22 04/27/22 09:51 10:09 - Today's Visit Information Type of service Follow-up Visit Follow-up Visit (Physician/CMM OPERATOR (Physician/CMM OPERATOR ) ) Arrival Mode Ambulatory Ambulatory Transfer Assistance None Accompanied by sister Patient Identification Verified (Name & Yes Yes ) Patient Requires Transmission-Based No Precautions Vital Signs Temperature (97.8 F-99.1 F) 97.5 F L 96.9 F L Temperature Source Temporal Temporal Pulse Rate (60-100) 112 H 110 H Pulse Location Monitor Monitor Respiratory Rate (12-18) 16 Respiratory rate source Observation Oxygen Delivery Method Room Air Blood Pressure (90/60-120/80) 83/55 L 114/73 Blood Pressure Mean (mm Hg) 64 86 Source Monitor Monitor Position Sitting Sitting Blood Pressure Location Right Arm Left Arm History Since Last Visit- (Skip if this is Patient's initial visit) Have you changed medications since your No No last visit? Any new allergies or adverse reactions No No Had a fall/change in ADL's that may No No increase risk of falls Signs or symptoms of abuse and/or No No neglect since last visit Have you been in the hospital since your No No last visit? Has dressing in place as prescribed Yes Yes Has compression in place as prescribed N/A N/A Has offloadiing in place as prescribed N/A N/A Experienced any changes in pain level or No No management Left Footwear Regular Shoe Regular Shoe Right Footwear Regular Shoe Regular Shoe Pain Scale: 0-10 Numeric Is Patient Pain Free? Yes Yes WC - Nurse 1 - General Ulcer Measurement Start: 04/20/22 09:50 Freq: Status: Active Protocol: Activity Type Activity Date Activity User E-sign Co-sign Detail Recorded Client Recorded Date Recorded By Document 04/20/22 09:51 [id number] 04/20/22 09:56 KR Document 04/27/22 10:09 [facility] Desktop 04/27/22 10:16 [facility] 04/20/22 04/27/22 09:51 10:09 Wound Center Nurse 1 #1 right upper back -Combined with other wound No -Current Size (cm) - Length 0.3 0.4 -Current Size (cm) - Width 0.3 0.3 -Current Size (cm) - Depth 0.2 0.4 -Total Square Cm 0.09 0.12 -Photo Taken No -Epithelialization None Present -Tunneling No -Undermining/Tunneling Yes -Undermining/Tunneling Starts (O'clock 6 12 ) -Undermining/Tunneling Ends (O'clock) 9 12 -Maximum Distance (cm) 0.2 0.3 -Circular Undermining No -Exudate Amt Small Small -Exudate Type Serosanguineous Serous -Wound Margin Distinct, Distinct, Outline Outline Attached Attached -Granulation Amt Small (1-33%) None Present (0 %) -Granulation Quality [place] -Slough/Fibrin Yes -Necrosis Amt Small (1-33%) Large (67-100%) -Necrotic Tissue Type Adherent Slough Adherent Slough -Texture (Valarie-wound Skin Appearance) Assessed, Assessed, Scarring Localized Edema ,Scarring -Moisture (Valarie-wound Skin Appearance) No Abnormality, Assessed Assessed -Color (Valarie-wound Skin Appearance) No Abnormality, Assessed, Assessed Erythema -Temperature (Valarie-wound Skin No Abnormality No Abnormality Appearance) (Pt Warm) (Pt Warm) -Tenderness on Palpation (Valarie-wound No Yes Skin Appearance) -Ulcer Cleansing Rinsed/ Rinsed/ Irrigated with Irrigated with Saline Saline -Foul Odor after Cleansing No No -Anesthetic Used 5% Lidocaine 5% Lidocaine Gel Gel WC - Nurse 2 - General Ulcer CM Notes Start: 04/20/22 09:50 Freq: Status: Active Protocol: Activity Type Activity Date Activity User E-sign Co-sign Detail Recorded Client Recorded Date Recorded By Document 04/20/22 10:06 MW [id number] 04/20/22 10:11 MW Document 04/27/22 10:33 MW [id number] 04/27/22 10:36 MW 04/20/22 04/27/22 10:06 10:33 Wound Center Nurse 2 #1 right upper back -Time 10:06 10:33 -Correct Patient Yes Yes -Correct Side, Site, Position Yes Yes -Correct Procedure Yes Yes -Procedure Performed Yes Yes -Type of Procedure Debridement Debridement -Clinical Debridement Subcutaneous Subcutaneous -Tissue Removed Subcutaneous Subcutaneous -Post Debridement (cm) - Length 0.3 0.4 -Post Debridement (cm) - Width 0.4 0.4 -Post Debridement (cm) - Depth 0.2 0.2 -Total Square (Post) (cm) 0.12 0.16 -Area of Debridement (cm) - Length 0.3 0.4 -Area of Debridement (cm) - Width 0.4 0.4 -Total Square (Area) (cm) 0.12 0.16 -Tunneling No No -Undermining/Tunneling Yes Yes -Undermining/Tunneling Starts (O'clock 6 6 ) -Undermining/Tunneling Ends (O'clock) 9 9 -Maximum Distance (cm) 0.2 0.2 -Circular Undermining No No -Wound/Ulcer Outcome Not Healed Not Healed -Ulcer Cleansing Rinsed/ Rinsed/ Irrigated with Irrigated with Saline Saline -Foul Odor after Cleansing No No -Bioengineered Tissue No No -Bleeding Controlled with Pressure Pressure -Treatment Response Procedure Procedure Tolerated Well Tolerated Well -Offloading No No -Debridement - Subq, 1st 20sq cm Yes Yes Pain Scale: 0-10 Numeric Is Patient Pain Free? Yes Yes - Nurse 3 - General Ulcer D/C NN Start: 04/20/22 09:50 Freq: Status: Active Protocol: Activity Type Activity Date Activity User E-sign Co-sign Detail Recorded Client Recorded Date Recorded By Document 04/20/22 12:07 ID [id number] 04/20/22 12:08 [place] Document 04/27/22 10:52 [facility] Desktop 04/27/22 10:53 [facility] 04/20/22 04/27/22 12:07 10:52 Wound Care Nurse 3 #1 right upper back -Ulcer Cleansing Rinsed/ Rinsed/ Irrigated with Irrigated with Saline Saline -Foul Odor after Cleansing No No -Negative Pressure Wound Therapy N/A Continue -Setting (mmHg) 125 -Negative Pressure is Continuous -NPWT Application Charge NPWT & NPWT & Debridement (nc Debridement (nc ) ) Treatment Response Procedure Tolerated Well Pain Scale: 0-10 Numeric Is Patient Pain Free? Yes Yes WC - Visit Discharge Discharge Condition Stable Stable Ambulatory Status Ambulatory Ambulatory Transportation Private Auto Private Auto Accompanied by sister Medication Reconcilliation completed & Yes provided to patient/care provider Clinical Summary of Care Provided Yes Assessment/Plan Assessment/Plan (1) Heart failure with reduced ejection fraction: CODE(S): I50.20 - Unspecified systolic (congestive) heart failure (2) Ventricular fibrillation: CODE(S): I49.01 - Ventricular fibrillation (3) Surgical wound, non healing: CODE(S): T81.89XA - Other complications of procedures, not elsewhere classified, initial encounter PLAN: Plan We will apply snap VAC to area and discussed how to fix if suction leaks. Follow-up in 1 week For nurse visit
[2022-05-04 13:38] VITALS: BP 97/65; PULSE 114; RESP 18; TEMP 35.6
[2022-05-11 09:59] VITALS: BP 119/68; PULSE 109; RESP 18; TEMP 35.9
--- NOTE | 2022-05-11 11:31 | PN.PCM_ITS ---
History of Present Illness Date of Service: 05/11/22 Chief Complaint: Follow-up on open wound right adjacent to spine mid back. History of Wound: 71-year-old white female that has many comorbidities and problems she has liver cancer and lung cancer surgery she is diabetic controlled with diet she has history severe COPD congestive heart failure and many other problems. Patient had a biopsy of a lump on her back removed in around June of this last year by Dr. Werner and it never healed. Progress of Wound: The wound has been basically at a standstill we did culture her she did have bacteria with put her on antibiotics at this point we starteda snap VAC on her, and she tolerated it for about a week. The nurses state though there was a lot of drainage she would fill the container. Patient does not want the wound VAC I told her today that there is not much else that we can do to close her she needs to see a surgeon to see if they can reopen it and close her up. Dr. Werner told her that she did not have enough skin to close her. Suggested that she see Dr. Cruz for a consult to see what he thinks since he is in plastic surgery. Patient at this time will be discharged from the wound center she can continue packing until she is seen by Dr. Cruz and we will then proceed from there after we get his consult. Patient suffers from lung cancer non-small cell stage IV. She just started chemo with a new plant-based chemotherapy and her first dose was last week. Patient is a smoker and has been in the hospital already for her COPD with exacerbation Subjective Subjective Patient and son were in the room and they both agreed with the plan. I reinforced that we will forget her and we will just see what Dr. Cruz says first and if he cannot help then we will send her probably back to the cancer doctors and have them decide if it is part of the cancer. She sees Dr. Leal out of [facility] Objective Data Objective Data As stated above and the wound is still there is full-thickness depth has not changed width and length have not changed. Small but she has undermining around the wound which makes it difficult to heal. Is a part of the cancer I do not know I just told her that is probably not good and being made to heal her closed she might need surgical intervention. Vital Signs: Vital Signs Temp Pulse Resp BP O2 Del Method 96.7 F L 109 H 18 119/68 Room Air 05/11/22 09:59 05/11/22 09:59 05/11/22 09:59 05/11/22 09:59 04/27/22 10:09 Oxygen Delivery Method Room Air Lab / Micro Data Micro: Microbiology 04/20/22 10:15 Wound Abcess - Back Gram Stain - Final 04/20/22 10:15 Wound Abcess - Back Wound Culture - Final Staphylococcus aureus Coag Negative Staph 04/20/22 10:15 Wound Abcess - Back Anaerobic Culture - Final No anaerobic bacteria isolated. Debridement Note Debridement Note No debridement was completed: No debridement was completed today Post-Debridement Measurements and Additional Note: Post-Debridement Measurements/Treatment - Nurse 1 - General Ulcer Assessment Start: 04/20/22 09:50 Freq: Status: Active Protocol: [facility] Activity Type Activity Date Activity User E-sign Co-sign Detail Recorded Client Recorded Date Recorded By Document 04/20/22 09:51 KR [id number] 04/20/22 09:56 KR Document 04/27/22 10:09 [facility] Desktop 04/27/22 10:16 [facility] Document 05/04/22 13:38 JF [id number] 05/04/22 14:03 JF Document 05/11/22 09:59 DL [id number] 05/11/22 10:07 DL 04/20/22 04/27/22 05/04/22 09:51 10:09 13:38 - Today's Visit Information Type of service Follow-up Visit Follow-up Visit Nurse-only (Physician/VEHICLE ASSEMBLY INSPECTOR (Physician/VEHICLE ASSEMBLY INSPECTOR Visit ) ) Arrival Mode Ambulatory Ambulatory Ambulatory Transfer Assistance None Accompanied by sister sister Patient Identification Verified (Name & Yes Yes Yes ) Patient Requires Transmission-Based No No Precautions Vital Signs Temperature (97.8 F-99.1 F) 97.5 F L 96.9 F L 96.1 F L Temperature Source Temporal Temporal Temporal Pulse Rate (60-100) 112 H 110 H 114 H Pulse Location Monitor Monitor Monitor Respiratory Rate (12-18) 16 18 Respiratory rate source Observation Observation Oxygen Delivery Method Room Air Blood Pressure (90/60-120/80) 83/55 L 114/73 97/65 Blood Pressure Mean (mm Hg) 64 86 75 Source Monitor Monitor Monitor Position Sitting Sitting Semi-Fowlers Blood Pressure Location Right Arm Left Arm Left Arm History Since Last Visit- (Skip if this is Patient's initial visit) Have you changed medications since your No No last visit? Any new allergies or adverse reactions No No Had a fall/change in ADL's that may No No increase risk of falls Signs or symptoms of abuse and/or No No neglect since last visit Have you been in the hospital since your No No last visit? Has dressing in place as prescribed Yes Yes Has compression in place as prescribed N/A N/A Has offloadiing in place as prescribed N/A N/A Experienced any changes in pain level or No No management Left Footwear Regular Shoe Regular Shoe Regular Shoe Right Footwear Regular Shoe Regular Shoe Regular Shoe Pain Scale: 0-10 Numeric Is Patient Pain Free? Yes Yes No back pain -Description Sharp -Intensity 5 -Duration (hours) Chronic -Pain Behavior Irritability, Facial Grimacing -Pain Aggravating Factors ADL's -Alleviating Factors/Interventions Turning/ Repositioning -Comments Patient complaining of pain to back from SNAP dressing. Feels it has increase pain to site. 05/11/22 09:59 WC - Today's Visit Information Type of service Follow-up Visit (Physician/VEHICLE ASSEMBLY INSPECTOR ) Arrival Mode Ambulatory Transfer Assistance None Accompanied by Patient Identification Verified (Name & Yes ) Patient Requires Transmission-Based No Precautions Vital Signs Temperature (97.8 F-99.1 F) 96.7 F L Temperature Source Temporal Pulse Rate (60-100) 109 H Pulse Location Monitor Respiratory Rate (12-18) 18 Respiratory rate source Observation Oxygen Delivery Method Blood Pressure (90/60-120/80) 119/68 Blood Pressure Mean (mm Hg) 85 Source Monitor Position Blood Pressure Location History Since Last Visit- (Skip if this is Patient's initial visit) Have you changed medications since your No last visit? Any new allergies or adverse reactions No Had a fall/change in ADL's that may No increase risk of falls Signs or symptoms of abuse and/or No neglect since last visit Have you been in the hospital since your No last visit? Has dressing in place as prescribed No Has compression in place as prescribed N/A Has offloadiing in place as prescribed Yes Experienced any changes in pain level or No management Left Footwear Right Footwear Pain Scale: 0-10 Numeric Is Patient Pain Free? Yes back pain -Description -Intensity -Duration (hours) -Pain Behavior -Pain Aggravating Factors -Alleviating Factors/Interventions -Comments WC - Nurse 1 - General Ulcer Measurement Start: 04/20/22 09:50 Freq: Status: Active Protocol: Activity Type Activity Date Activity User E-sign Co-sign Detail Recorded Client Recorded Date Recorded By Document 04/20/22 09:51 KR [id number] 04/20/22 09:56 KR Document 04/27/22 10:09 [facility] Desktop 04/27/22 10:16 [facility] Document 05/04/22 13:38 JF [id number] 05/04/22 14:03 JF Document 05/11/22 09:59 DL [id number] 05/11/22 10:07 DL 04/20/22 04/27/22 05/04/22 09:51 10:09 13:38 Wound Center Nurse 1 #1 right upper back -Combined with other wound No No -Current Size (cm) - Length 0.3 0.4 0.4 -Current Size (cm) - Width 0.3 0.3 0.2 -Current Size (cm) - Depth 0.2 0.4 0.4 -Total Square Cm 0.09 0.12 0.08 -Photo Taken No No -Epithelialization None Present Small 1-33% -Tunneling No No -Undermining/Tunneling Yes No -Undermining/Tunneling Starts (O'clock 6 12 ) -Undermining/Tunneling Ends (O'clock) 9 12 -Maximum Distance (cm) 0.2 0.3 -Maximum Distance #2 (cm) -Circular Undermining No No -Exudate Amt Small Small Small -Exudate Type Serosanguineous Serous Serosanguineous -Wound Margin Distinct, Distinct, Flat & Intact Outline Outline Attached Attached -Granulation Amt Small (1-33%) None Present (0 None Present (0 %) %) -Granulation Quality [place] -Slough/Fibrin Yes Yes -Necrosis Amt Small (1-33%) Large (67-100%) Large (67-100%) -Necrotic Tissue Type Adherent Slough Adherent Slough Adherent Slough -Structure Exposed None/Limited to Skin Breakdown -Texture (Valarie-wound Skin Appearance) Assessed, Assessed, Assessed Scarring Localized Edema ,Scarring -Moisture (Valarie-wound Skin Appearance) No Abnormality, Assessed Assessed,Dry/ Assessed Scaly -Color (Valarie-wound Skin Appearance) No Abnormality, Assessed, Assessed Assessed Erythema -Temperature (Valarie-wound Skin No Abnormality No Abnormality No Abnormality Appearance) (Pt Warm) (Pt Warm) (Pt Warm) -Tenderness on Palpation (Valarie-wound No Yes No Skin Appearance) -Ulcer Cleansing Rinsed/ Rinsed/ Wound Cleanser Irrigated with Irrigated with Saline Saline -Foul Odor after Cleansing No No No -Anesthetic Used 5% Lidocaine 5% Lidocaine Gel Gel Lower Limb Edema Present NA 05/11/22 09:59 Wound Center Nurse 1 #1 right upper back -Combined with other wound -Current Size (cm) - Length 0.2 -Current Size (cm) - Width 0.2 -Current Size (cm) - Depth 0.5 -Total Square Cm 0.04 -Photo Taken Yes -Epithelialization -Tunneling -Undermining/Tunneling -Undermining/Tunneling Starts (O'clock ) -Undermining/Tunneling Ends (O'clock) -Maximum Distance (cm) -Maximum Distance #2 (cm) 0.6 -Circular Undermining Yes -Exudate Amt Small -Exudate Type Serosanguineous -Wound Margin Distinct, Outline Attached -Granulation Amt None Present (0 %) -Granulation Quality [place] -Slough/Fibrin -Necrosis Amt Small (1-33%) -Necrotic Tissue Type Adherent Slough -Structure Exposed N/A -Texture (Valarie-wound Skin Appearance) Scarring -Moisture (Valarie-wound Skin Appearance) No Abnormality -Color (Valarie-wound Skin Appearance) No Abnormality -Temperature (Valarie-wound Skin No Abnormality Appearance) (Pt Warm) -Tenderness on Palpation (Valarie-wound No Skin Appearance) -Ulcer Cleansing Rinsed/ Irrigated with Saline -Foul Odor after Cleansing No -Anesthetic Used 5% Lidocaine Gel Lower Limb Edema Present WC - Nurse 2 - General Ulcer CM Notes Start: 04/20/22 09:50 Freq: Status: Active Protocol: Activity Type Activity Date Activity User E-sign Co-sign Detail Recorded Client Recorded Date Recorded By Document 04/20/22 10:06 MW [id number] 04/20/22 10:11 MW Document 04/27/22 10:33 MW [id number] 04/27/22 10:36 MW Document 05/11/22 10:12 MW [id number] 05/11/22 10:17 MW 04/20/22 04/27/22 05/11/22 10:06 10:33 10:12 Wound Center Nurse 2 #1 right upper back -Time 10:06 10:33 10:13 -Correct Patient Yes Yes Yes -Correct Side, Site, Position Yes Yes Yes -Correct Procedure Yes Yes Yes -Procedure Performed Yes Yes No -Type of Procedure Debridement Debridement -Clinical Debridement Subcutaneous Subcutaneous -Tissue Removed Subcutaneous Subcutaneous -Post Debridement (cm) - Length 0.3 0.4 0.3 -Post Debridement (cm) - Width 0.4 0.4 0.3 -Post Debridement (cm) - Depth 0.2 0.2 0.3 -Total Square (Post) (cm) 0.12 0.16 0.09 -Area of Debridement (cm) - Length 0.3 0.4 0.3 -Area of Debridement (cm) - Width 0.4 0.4 0.3 -Total Square (Area) (cm) 0.12 0.16 0.09 -Tunneling No No No -Undermining/Tunneling Yes Yes No -Undermining/Tunneling Starts (O'clock 6 6 ) -Undermining/Tunneling Ends (O'clock) 9 9 -Maximum Distance (cm) 0.2 0.2 -Circular Undermining No No No -Wound/Ulcer Outcome Not Healed Not Healed Not Healed -Ulcer Cleansing Rinsed/ Rinsed/ Rinsed/ Irrigated with Irrigated with Irrigated with Saline Saline Saline -Foul Odor after Cleansing No No No -Bioengineered Tissue No No No -Bleeding Controlled with Pressure Pressure NA -Treatment Response Procedure Procedure Tolerated Well Tolerated Well -Offloading No No No -Debridement - Subq, 1st 20sq cm Yes Yes Pain Scale: 0-10 Numeric Is Patient Pain Free? Yes Yes Yes WC - Nurse 3 - General Ulcer D/C NN Start: 04/20/22 09:50 Freq: Status: Active Protocol: Activity Type Activity Date Activity User E-sign Co-sign Detail Recorded Client Recorded Date Recorded By Document 04/20/22 12:07 AK [id number] 04/20/22 12:08 AK Document 04/27/22 10:52 [facility] Desktop 04/27/22 10:53 [facility] Document 05/04/22 13:38 [id number] 05/04/22 14:03 Document 05/11/22 11:11 MW [id number] 05/11/22 11:12 MW 04/20/22 04/27/22 05/04/22 12:07 10:52 13:38 Wound Care Nurse 3 #1 right upper back -Ulcer Cleansing Rinsed/ Rinsed/ Rinsed/ Irrigated with Irrigated with Irrigated with Saline Saline Saline -Foul Odor after Cleansing No No No -Negative Pressure Wound Therapy N/A Continue -Setting (mmHg) 125 -Negative Pressure is Continuous -Primary Dressing Applied Promogran Adina Matter -Primary Dressing Covered/Secured with Dry Gauze, Secured with Tape -NPWT Application Charge NPWT & NPWT & Debridement (nc Debridement (nc ) ) -Promogran Adina Matter 1 Treatment Response Procedure Tolerated Well Vital Signs Temperature (97.8 F-99.1 F) 96.1 F L Temperature Source Temporal Pulse Rate (60-100) 114 H Pulse Location Monitor Respiratory Rate (12-18) 18 Respiratory rate source Observation Blood Pressure (90/60-120/80) 97/65 Blood Pressure Mean (mm Hg) 75 Source Monitor Position Semi-Fowlers Blood Pressure Location Left Arm Pain Scale: 0-10 Numeric Is Patient Pain Free? Yes Yes No back pain -Description Sharp -Intensity 5 -Duration (hours) Chronic -Pain Behavior Irritability, Facial Grimacing -Pain Aggravating Factors ADL's -Alleviating Factors/Interventions Turning/ Repositioning -Comments Patient complaining of pain to back from SNAP dressing. Feels it has increase pain to site. Teaching: Wound Center Dressing Your Wound -Person Taught -Teaching Method -Response to teaching WC - Visit Discharge Discharge Condition Stable Stable Ambulatory Status Ambulatory Ambulatory Transportation Private Auto Private Auto Accompanied by sister Medication Reconcilliation completed & Yes provided to patient/care provider Clinical Summary of Care Provided Yes 05/11/22 11:11 Wound Care Nurse 3 #1 right upper back -Ulcer Cleansing Rinsed/ Irrigated with Saline -Foul Odor after Cleansing No -Negative Pressure Wound Therapy N/A -Setting (mmHg) -Negative Pressure is -Primary Dressing Applied Promogran Adina Matter -Primary Dressing Covered/Secured with Dry Gauze, Secured with Tape -NPWT Application Charge -Promogran Adina Matter 1 Treatment Response Vital Signs Temperature (97.8 F-99.1 F) Temperature Source Pulse Rate (60-100) Pulse Location Respiratory Rate (12-18) Respiratory rate source Blood Pressure (90/60-120/80) Blood Pressure Mean (mm Hg) Source Position Blood Pressure Location Pain Scale: 0-10 Numeric Is Patient Pain Free? Yes back pain -Description -Intensity -Duration (hours) -Pain Behavior -Pain Aggravating Factors -Alleviating Factors/Interventions -Comments Teaching: Wound Center Dressing Your Wound -Person Taught Patient -Teaching Method Discussion -Response to teaching Verbalize understanding WC - Visit Discharge Discharge Condition Stable Ambulatory Status Ambulatory,Cane Transportation Private Auto Accompanied by SON Medication Reconcilliation completed & No provided to patient/care provider Clinical Summary of Care Provided Yes Assessment/Plan Assessment/Plan (1) Heart failure with reduced ejection fraction: CODE(S): I50.20 - Unspecified systolic (congestive) heart failure (2) Ventricular fibrillation: CODE(S): I49.01 - Ventricular fibrillation (3) Surgical wound, non healing: CODE(S): T81.89XA - Other complications of procedures, not elsewhere classified, initial encounter PLAN: Plan We continue packing with Promogran Adaptic and dry dressing with tape. We will consult with Dr. Cruz her next visit. She is to continue treatments as prescribed till seen. Patient will be transferred her care from co to Dr. Cruz for now.
== END 2022-05-16 23:59 | disposition home or self-care (01) ==
LOC: WC 10:00
PROVIDERS: PCP Internal Medicine; Visit Provider Nurse Practitioner
DX: T81.89XA Other complications of procedures, not elsewhere classified, initial encounter (principal); C34.90 Malignant neoplasm of unspecified part of unspecified bronchus or lung; J44.9 Chronic obstructive pulmonary disease, unspecified; I50.20 Unspecified systolic (congestive) heart failure; I49.01 Ventricular fibrillation; F17.200 Nicotine dependence, unspecified, uncomplicated; W19.XXXA Unspecified fall, initial encounter
CPT/HCPCS: 11042; 87070; 87075; 87077; 87186; 87205; 99213; G0463

== ENCOUNTER 2022-06-13 10:15 | Outpatient (RCR) | payer MEDICARE, OTHER, SELFPAY ==
[2017-10-05 11:04] VITALS: BMI 28.2
[2022-05-17 00:29] VITALS: BP 119/68; PULSE 109; RESP 18; TEMP 35.9
[2022-05-30 10:00] VITALS: BP 114/79; PULSE 111; RESP 18; TEMP 36.4
--- NOTE | 2022-05-30 11:59 | PN.PCM_ITS ---
History of Present Illness Date of Service: 05/30/22 Chief Complaint: Follow-up on open wound right adjacent to spine mid back. History of Wound: 71-year-old white female that has many comorbidities and problems she has liver cancer and lung cancer surgery she is diabetic controlled with diet she has history severe COPD congestive heart failure and many other problems. Patient had a biopsy of a lump on her back removed in around June [address] Werner which showed radiation necrosis. This ulcer has never healed even with trying negative compression dressings. Patient has been receiving chemotherapy and she is due to have a CT scan on 06/14/22 to evaluate how her cancer is responding because they may decide to discontinue her treatments. She sees Dr. Leal at [facility] for her Oncologist. Will obtain a copy of those results after the testing is completed. Progress of Wound: Right medial mid back ulcer under a raised, firm area. No redness. There is undermining at 10 o'clock. Possibly a rib where the protrusion is located. She has palliative care on service for pain management, but she states they are not controlling her pain. Objective Data Objective Data Vital Signs: Vital Signs Temp Pulse Resp BP 97.5 F L 111 H 18 114/79 05/30/22 10:00 05/30/22 10:00 05/30/22 10:00 05/30/22 10:00 Charges/Coding Procedures Integumentary 111xxx-113xx: [id number] Megan subq tissue 20 sq cm/< Physical Exam Const alert and oriented x3 General Appearance: cooperative HEENT normocephalic Lymph Lymphatic: no lymphedema noted Resp normal respiratory effort Effort and Inspection: able to speak in complete sentences Auscultation: diminished lung sounds Cardio regular rate and regular rhythm GI non-tender Extremity normal capillary refill Skin Wound Narrative: Right medial mid back ulcer under a raised, firm area. No redness. There is undermining at 10 o'clock. Possibly a rib where the protrusion is located. Neuro CN's II-XII intact bilaterally Psych affect normal Appearance: well kempt Debridement Note Debridement Note Wound debrided: Middle right mid back ulcer Laterality: Right Wound Grade/Stage: Stage III Type of Debridement: Excisional debridement Anesthesia Used: 5% Lidocaine Gel Depth: Down to and including healthy tissue and in the subcutaneous layer Percentage of wound debrided: 100 Instrument Used: 5mm curette Tissue Removed: Devitalized tissue and slough Severity: Fat Layer Exposed Amount of bleeding with debridement: Mild Bleeding Controlled with: Pressure and Compression and gauze Patient tolerated procedure: Patient tolerated procedure well Post-Debridement Measurements and Additional Note: Post-Debridement Measurements/Treatment MIGUEL ANGEL - Nurse 1 - General Ulcer Assessment Start: 05/30/22 10:00 Freq: Status: Active Protocol: YOLA Activity Type Activity Date Activity User E-sign Co-sign Detail Recorded Client Recorded Date Recorded By Document 05/30/22 10:00 DL [id number] 05/30/22 10:05 DL 05/30/22 10:00 WC - Today's Visit Information Type of service Follow-up Visit (Physician/OPTIC FIBRE DRAWER ) Arrival Mode Ambulatory Transfer Assistance None Patient Identification Verified (Name & Yes ) Patient Requires Transmission-Based No Precautions Vital Signs Temperature (97.8 F-99.1 F) 97.5 F L Temperature Source Temporal Pulse Rate (60-100) 111 H Pulse Location Monitor Respiratory Rate (12-18) 18 Respiratory rate source Observation Blood Pressure (90/60-120/80) 114/79 Blood Pressure Mean (mm Hg) 90 Source Monitor History Since Last Visit- (Skip if this is Patient's initial visit) Have you changed medications since your No last visit? Any new allergies or adverse reactions No Had a fall/change in ADL's that may No increase risk of falls Signs or symptoms of abuse and/or No neglect since last visit Have you been in the hospital since your No last visit? Has dressing in place as prescribed Yes Has compression in place as prescribed N/A Has offloadiing in place as prescribed Yes Experienced any changes in pain level or No management Pain Scale: 0-10 Numeric Is Patient Pain Free? Yes - Nurse 1 - General Ulcer Measurement Start: 05/30/22 10:00 Freq: Status: Active Protocol: Activity Type Activity Date Activity User E-sign Co-sign Detail Recorded Client Recorded Date Recorded By Document 05/30/22 10:00 DL [id number] 05/30/22 10:05 DL 05/30/22 10:00 Wound Center Nurse 1 #1 right upper back -Current Size (cm) - Length 0.5 -Current Size (cm) - Width 0.5 -Current Size (cm) - Depth 0.6 -Total Square Cm 0.25 -Photo Taken Yes -Maximum Distance #2 (cm) 0.4 -Circular Undermining Yes -Exudate Amt Small -Exudate Type Serosanguineous -Wound Margin Distinct, Outline Attached -Granulation Amt None Present (0 %) -Necrosis Amt Large (67-100%) -Necrotic Tissue Type Adherent Slough -Structure Exposed N/A -Texture (Valraie-wound Skin Appearance) Scarring -Moisture (Valarie-wound Skin Appearance) No Abnormality -Color (Valarie-wound Skin Appearance) Erythema -Temperature (Valarie-wound Skin No Abnormality Appearance) (Pt Warm) -Tenderness on Palpation (Valarie-wound Yes Skin Appearance) -Ulcer Cleansing Rinsed/ Irrigated with Saline -Foul Odor after Cleansing No -Anesthetic Used 5% Lidocaine Gel MIGUEL ANGEL - Nurse 2 - General Ulcer CM Notes Start: 05/30/22 10:00 Freq: Status: Active Protocol: Activity Type Activity Date Activity User E-sign Co-sign Detail Recorded Client Recorded Date Recorded By Document 05/30/22 10:23 CECY [id number] 05/30/22 10:29 CECY 05/30/22 10:23 Wound Center Nurse 2 -Time 10:28 -Correct Patient Yes -Correct Side, Site, Position Yes -Correct Procedure Yes -Procedure Performed Yes -Type of Procedure Debridement -Clinical Debridement Subcutaneous -Tissue Removed Subcutaneous -Post Debridement (cm) - Length 0.5 -Post Debridement (cm) - Width 0.7 -Post Debridement (cm) - Depth 0.5 -Total Square (Post) (cm) 0.35 -Area of Debridement (cm) - Length 0.5 -Area of Debridement (cm) - Width 0.7 -Total Square (Area) (cm) 0.35 -Tunneling Yes -Tunneling Position (O'clock) 10 -Tunneling Distance (cm) 1.0 -Undermining/Tunneling No -Circular Undermining No -Wound/Ulcer Outcome Not Healed -Ulcer Cleansing Rinsed/ Irrigated with Saline -Foul Odor after Cleansing No -Bioengineered Tissue No -Bleeding Controlled with Pressure -Treatment Response Procedure Tolerated Well -Offloading No -Debridement - Subq, 1st 20sq cm Yes Pain Scale: 0-10 Numeric Is Patient Pain Free? Yes MIGUEL ANGEL - Nurse 3 - General Ulcer D/C NN Start: 05/30/22 10:00 Freq: Status: Active Protocol: Activity Type Activity Date Activity User E-sign Co-sign Detail Recorded Client Recorded Date Recorded By Document 05/30/22 10:49 CECY [id number] 05/30/22 10:50 CECY 05/30/22 10:49 Wound Care Nurse 3 #1 right upper back -Ulcer Cleansing Rinsed/ Irrigated with Saline -Foul Odor after Cleansing No -Primary Dressing Applied Hysept ($), Mepilex Border -Mepilex Border 2 Pain Scale: 0-10 Numeric Is Patient Pain Free? 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 - Other specified disorders of the skin and subcutaneous tissue related to radiation; Y84.2 - Radiological procedure and radiotherapy as the cause of abnormal reaction of the patient, or of later complication, without mention of misadventure at the time of the procedure (3) 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: CODE(S): C34.90 - Malignant neoplasm of unspecified part of unspecified bronchus or lung; C78.7 - Secondary malignant neoplasm of liver and intrahepatic bile duct (4) Primary cancer of right lower lobe of lung: CODE(S): C34.31 - Malignant neoplasm of lower lobe, right bronchus or lung (5) Diabetes mellitus: CODE(S): E11.9 - Type 2 diabetes mellitus without complications (6) COPD (chronic obstructive pulmonary disease): CODE(S): J44.9 - Chronic obstructive pulmonary disease, unspecified (7) Tobacco abuse: CODE(S): Z72.0 - Tobacco use (8) Heart failure with reduced ejection fraction: CODE(S): I50.20 - Unspecified systolic (congestive) heart failure PLAN: Plan Patient was evaluated at the wound center today. Patient had been seeing another provider at the wound center who wants a referral to Dr. Cruz, my collaborative physician. Patient has had multiple therapies to help to heal this ulcer. Extensive discussion with patient and her sister that this ulcer is not going to heal with wound care. In order to heal this, she would need an operative debridement with a non radiated flap placed in this area. Since she is having a scan to evaluate how she is responding to her chemotherapy on 06/14/22, and decisions will be made after that if she is going to continue chemotherapy. After we find the results of the scan, and what her cancer treatment options are, to decide if a surgical consult is necessary. I have discussed this with Dr. Cruz and he agrees waiting until after the scan. She states she has already had all the radiation that she can have. Wound care: We will conservatively treat this chronic ulcer at this time with Dakin's 0.25% moistened gauze daily or every other day, covered with [place] SAP dressing. The [place] SAP dressing should help with the discomfort she experiences with the tape removal at dressing changes. Patient is not happy with her palliative care because her pain is not being controlled and she would like to get rid of them. I encouraged patient to call them and have a discussion with them about the severity of her pain. I have concerns that the patient has unrealistic expectations on the severity of her cancer diagnosis and she is not completely understanding what it means if they stop her chemotherapy. Encouraged increase in protein intake to assist with wound healing. Encouraged patient to stop smoking as it may have deleterious effects on wound healing. Follow up 2 weeks. Call or come in sooner if develop any concerns.
[2022-06-13 10:14] VITALS: BP 95/69; PULSE 59; TEMP 36.1
--- NOTE | 2022-06-13 11:14 | PCM.WC.PN ---
History of Present Illness Date of Service: 06/13/22 Chief Complaint: Follow-up on open wound right adjacent to spine mid back. History of Wound: 71-year-old white female that has many comorbidities and problems she has liver cancer and lung cancer surgery she is diabetic controlled with diet she has history severe COPD congestive heart failure and many other problems. Patient had a biopsy of a lump on her back removed in around June [address] Werner which showed radiation necrosis. This ulcer has never healed even with trying negative compression dressings. Patient has been receiving chemotherapy and she is due to have a CT scan on 06/14/22 to evaluate how her cancer is responding because they may decide to discontinue her treatments. She sees Dr. Leal at [facility] for her Oncologist. Will obtain a copy of those results after the testing is completed. Progress of Wound: Right medial mid back ulcer under a raised, firm area. There is erythema on the surrounding valarie wound. There is undermining at 10 o'clock. Increase drainage. Objective Data Objective Data Vital Signs: Vital Signs Temp Pulse Resp BP 97.0 F L 59 L 18 95/69 06/13/22 10:14 06/13/22 10:14 05/30/22 10:00 06/13/22 10:14 Charges/Coding Procedures Integumentary 111xxx-113xx: [id number] Megan subq tissue 20 sq cm/< Debridement Note Debridement Note Wound debrided: Middle right mid back ulcer Laterality: Right Wound Grade/Stage: Stage III Type of Debridement: Excisional debridement Anesthesia Used: 5% Lidocaine Gel Depth: Down to and including healthy tissue and in the subcutaneous layer Percentage of wound debrided: 100 Instrument Used: 5mm curette Tissue Removed: Devitalized tissue and slough Severity: Fat Layer Exposed Amount of bleeding with debridement: Mild Bleeding Controlled with: Pressure and Compression and gauze Patient tolerated procedure: Patient tolerated procedure well Post-Debridement Measurements and Additional Note: Post-Debridement Measurements/Treatment WC - Nurse 1 - General Ulcer Assessment Start: 05/30/22 10:00 Freq: Status: Active Protocol: YOLA Activity Type Activity Date Activity User E-sign Co-sign Detail Recorded Client Recorded Date Recorded By Document 05/30/22 10:00 DL [id number] 05/30/22 10:05 DL Document 06/13/22 10:14 KR [id number] 06/13/22 10:15 SOLOMON 05/30/22 06/13/22 10:00 10:14 - Today's Visit Information Type of service Follow-up Visit Follow-up Visit (Physician/NON PROFIT DIRECTOR (Physician/NON PROFIT DIRECTOR ) ) Arrival Mode Ambulatory Cane Transfer Assistance None Patient Identification Verified (Name & Yes Yes ) Patient Requires Transmission-Based No Precautions Vital Signs Temperature (97.8 F-99.1 F) 97.5 F L 97.0 F L Temperature Source Temporal Temporal Pulse Rate (60-100) 111 H 59 L Pulse Location Monitor Monitor Respiratory Rate (12-18) 18 Respiratory rate source Observation Blood Pressure (90/60-120/80) 114/79 95/69 Blood Pressure Mean (mm Hg) 90 77 Source Monitor Monitor Position Sitting Blood Pressure Location Left Arm History Since Last Visit- (Skip if this is Patient's initial visit) Have you changed medications since your No No last visit? Any new allergies or adverse reactions No No Had a fall/change in ADL's that may No No increase risk of falls Signs or symptoms of abuse and/or No No neglect since last visit Have you been in the hospital since your No No last visit? Has dressing in place as prescribed Yes Yes Has compression in place as prescribed N/A N/A Has offloadiing in place as prescribed Yes N/A Experienced any changes in pain level or No No management Left Footwear Regular Shoe Right Footwear Regular Shoe Pain Scale: 0-10 Numeric Is Patient Pain Free? Yes Yes - Nurse 1 - General Ulcer Measurement Start: 05/30/22 10:00 Freq: Status: Active Protocol: Activity Type Activity Date Activity User E-sign Co-sign Detail Recorded Client Recorded Date Recorded By Document 05/30/22 10:00 DL [id number] 05/30/22 10:05 DL Document 06/13/22 10:14 SOLOMON [id number] 06/13/22 10:15 SOLOMON 05/30/22 06/13/22 10:00 10:14 Wound Center Nurse 1 #1 right upper back -Current Size (cm) - Length 0.5 0.9 -Current Size (cm) - Width 0.5 0.8 -Current Size (cm) - Depth 0.6 0.8 -Total Square Cm 0.25 0.72 -Photo Taken Yes -Maximum Distance #2 (cm) 0.4 -Circular Undermining Yes -Exudate Amt Small Small -Exudate Type Serosanguineous Yellow/Green -Wound Margin Distinct, Distinct, Outline Outline Attached Attached -Granulation Amt None Present (0 Medium (34-66%) %) -Granulation Quality [place] -Necrosis Amt Large (67-100%) Small (1-33%) -Necrotic Tissue Type Adherent Slough Adherent Slough -Structure Exposed N/A -Texture (Valarie-wound Skin Appearance) Scarring Assessed, Scarring -Moisture (Valarie-wound Skin Appearance) No Abnormality No Abnormality, Assessed -Color (Valarie-wound Skin Appearance) Erythema No Abnormality, Assessed -Temperature (Valarie-wound Skin No Abnormality No Abnormality Appearance) (Pt Warm) (Pt Warm) -Tenderness on Palpation (Valarie-wound Yes No Skin Appearance) -Ulcer Cleansing Rinsed/ Rinsed/ Irrigated with Irrigated with Saline Saline -Foul Odor after Cleansing No No -Anesthetic Used 5% Lidocaine 5% Lidocaine Gel Gel WC - Nurse 2 - General Ulcer CM Notes Start: 05/30/22 10:00 Freq: Status: Active Protocol: Activity Type Activity Date Activity User E-sign Co-sign Detail Recorded Client Recorded Date Recorded By Document 05/30/22 10:23 [id number] 05/30/22 10:29 Document 06/13/22 10:45 [id number] 06/13/22 10:50 05/30/22 06/13/22 10:23 10:45 Wound Center Nurse 2 #1 right upper back -Time 10:28 10:45 -Correct Patient Yes Yes -Correct Side, Site, Position Yes Yes -Correct Procedure Yes Yes -Procedure Performed Yes Yes -Type of Procedure Debridement Debridement -Clinical Debridement Subcutaneous Subcutaneous -Tissue Removed Subcutaneous Subcutaneous -Post Debridement (cm) - Length 0.5 0.9 -Post Debridement (cm) - Width 0.7 1.0 -Post Debridement (cm) - Depth 0.5 0.9 -Total Square (Post) (cm) 0.35 0.90 -Area of Debridement (cm) - Length 0.5 0.9 -Area of Debridement (cm) - Width 0.7 1.0 -Total Square (Area) (cm) 0.35 0.90 -Tunneling Yes No -Tunneling Position (O'clock) 10 10 -Tunneling Distance (cm) 1.0 0.7 -Undermining/Tunneling No No -Circular Undermining No No -Wound/Ulcer Outcome Not Healed Not Healed -Ulcer Cleansing Rinsed/ Rinsed/ Irrigated with Irrigated with Saline Saline -Foul Odor after Cleansing No No -Bioengineered Tissue No No -Bleeding Controlled with Pressure Pressure -Treatment Response Procedure Procedure Tolerated Well Tolerated Well -Offloading No No -Debridement - Subq, 1st 20sq cm Yes Yes Pain Scale: 0-10 Numeric Is Patient Pain Free? Yes Yes - Nurse 3 - General Ulcer D/C NN Start: 05/30/22 10:00 Freq: Status: Active Protocol: Activity Type Activity Date Activity User E-sign Co-sign Detail Recorded Client Recorded Date Recorded By Document 05/30/22 10:49 [id number] 05/30/22 10:50 Document 06/13/22 10:58 [id number] 06/13/22 10:59 05/30/22 06/13/22 10:49 10:58 Wound Care Nurse 3 #1 right upper back -Ulcer Cleansing Rinsed/ Rinsed/ Irrigated with Irrigated with Saline Saline -Foul Odor after Cleansing No No -Primary Dressing Applied Hysept ($), [place]cel Mepilex Border -Primary Dressing Covered/Secured with Dry Gauze,Other -Other Covering silicone tape -Mepilex Border 2 -Silvercel 2 Pain Scale: 0-10 Numeric Is Patient Pain Free? 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 - Other specified disorders of the skin and subcutaneous tissue related to radiation; Y84.2 - Radiological procedure and radiotherapy as the cause of abnormal reaction of the patient, or of later complication, without mention of misadventure at the time of the procedure (3) 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: CODE(S): C34.90 - Malignant neoplasm of unspecified part of unspecified bronchus or lung; C78.7 - Secondary malignant neoplasm of liver and intrahepatic bile duct (4) Primary cancer of right lower lobe of lung: CODE(S): C34.31 - Malignant neoplasm of lower lobe, right bronchus or lung (5) Diabetes mellitus: CODE(S): E11.9 - Type 2 diabetes mellitus without complications (6) COPD (chronic obstructive pulmonary disease): CODE(S): J44.9 - Chronic obstructive pulmonary disease, unspecified (7) Tobacco abuse: CODE(S): Z72.0 - Tobacco use (8) Heart failure with reduced ejection fraction: CODE(S): I50.20 - Unspecified systolic (congestive) heart failure PLAN: Plan Patient was evaluated at the wound center today. Patient had been seeing another provider at the wound center who wants a referral to Dr. Cruz, my collaborative physician. Patient has had multiple therapies to help to heal this ulcer. Reinforced with patient and her sister that this ulcer is not going to heal with wound care. In order to heal this, she would need an operative debridement with a non radiated tissue placed in this area. Since she is having a scan to evaluate how she is responding to her chemotherapy on 06/14/22, and decisions will be made after that if she is going to continue chemotherapy. After we find the results of the scan, and what her cancer treatment options are, we will discuss if a surgical consult is necessary. I have discussed this with Dr. Cruz and he agrees waiting until after the scan. She states she has already had all the radiation that she can have. Wound care: Silvercel packed into the base of ulcer covered with gauze and use silicone tape. Believe the erythema surrounding the ulcer is caused by tape. Encouraged increase in protein intake to assist with wound healing. Encouraged patient to stop smoking as it may have deleterious effects on wound healing. Follow up 2 weeks. Call or come in sooner if develop any concerns.
== END 2022-06-15 23:59 | disposition home or self-care (01) ==
LOC: WC 10:15
PROVIDERS: PCP Internal Medicine; Visit Provider Nurse Practitioner Family
DX: T81.89XA Other complications of procedures, not elsewhere classified, initial encounter (principal); C78.7 Secondary malignant neoplasm of liver and intrahepatic bile duct; C34.31 Malignant neoplasm of lower lobe, right bronchus or lung; L98.422 Non-pressure chronic ulcer of back with fat layer exposed; J44.9 Chronic obstructive pulmonary disease, unspecified; I50.20 Unspecified systolic (congestive) heart failure; E11.9 Type 2 diabetes mellitus without complications; W19.XXXA Unspecified fall, initial encounter
CPT/HCPCS: 11042